=== PATIENT | female | born 2000 | race Caucasian/White ===

== ENCOUNTER 2024-10-12 13:10 | Outpatient (OUT) | payer OTHER, SELFPAY ==
[2024-10-12 13:55] LABS: Basophils Absolute Auto 0.1 10^3/uL (0.0-0.1); Eosinophils Absolute Auto 0.2 10^3/uL (0.0-0.7); Eosinophils Percent Auto 3.3 % (0.9-7.0); Hematocrit 42.8 % (36.0-48.0); Hemoglobin 14.1 g/dL (12.0-16.0); Immature Granulocytes Abs Auto 0.01 10^3/uL (0.00-0.03); Immature Granulocytes Pct Auto 0.2 % (0.0-0.5); Lymphocytes Absolute Auto 1.5 10^3/uL (1.2-3.8); Mean Corpuscular HGB Conc 32.9 g/dL (29.9-35.2); Mean Corpuscular Hemoglobin 29.1 pg (26.7-34.0); Mean Corpuscular Volume 88.2 fL (81.0-99.0); Monocytes Absolute Auto 0.3 10^3/uL (0.3-0.8); Monocytes Percent Auto 5.9 % (1.7-12.0); Neutrophils Absolute Auto 2.8 10^3/uL (1.4-6.5); Neutrophils Percent Auto 57.6 % (43.0-75.0); Platelet Count 248 10^3/uL (150-450); Red Blood Count 4.85 10^6/uL (4.20-5.40); Red Cell Distribution Width 12.3 % (11.0-15.0); White Blood Count 4.8 10^3/uL (4.0-11.0)
[2024-10-12 14:23] LABS: Estimated Average Glucose 91 mg/dL; Glycohemoglobin A1C 4.8 % (4.5-6.2)
[2024-10-12 14:47] LABS: Thyroid Stimulating Hormone 2.794 uIU/mL (0.358-3.740)
[2024-10-12 14:58] LABS: HCG Quantitative <1 mIU/mL
[2024-10-12 15:21] LABS: Free T4 0.89 ng/dL (0.76-1.46)
[2024-10-13 04:07] LABS: FSH 8.1 mIU/mL (.); Luteinizing Hormone(LH) 15.7 mIU/mL (.)
[2024-10-16 23:08] LABS: DHEA, Serum 428 ng/dL (31-701)
== END 2024-10-12 13:11 | disposition home or self-care (01) ==
LOC: LAB 13:13
PROVIDERS: PCP Family Medicine; Visit Provider Obstetrics & Gynecology
DX: E28.2 Polycystic ovarian syndrome (principal)
CPT/HCPCS: 36415; 82626; 82627; 83001; 83002; 83036; 84439; 84443; 84702; 85025

== ENCOUNTER 2024-11-15 11:04 | Outpatient (OUT) | payer OTHER, SELFPAY | END 2024-11-15 11:05 | disposition home or self-care (01) | LOC: PST 11:04 | PROVIDERS: PCP Family Medicine; Visit Provider Obstetrics & Gynecology | DX: Z01.818 Encounter for other preprocedural examination (principal); E28.2 Polycystic ovarian syndrome; R10.2 Pelvic and perineal pain ==

== ENCOUNTER 2024-11-16 15:55 | Outpatient (OUT) | payer OTHER, SELFPAY ==
--- NOTE | 2024-11-16 15:56 | US_ITS ---
The [address] [address] Patient Name: KATHY OLIVER MRN: [id number] date: 2000 Sex: F Assigned Patient Location: US Current Patient Location: US Accession/Order Number: [id number] Exam Date: 11/16/2024 19:41 Report Date: 11/16/2024 19:45 At the request of: HERMELINDO ROCHA DO Procedure: US pelvis w/ transvaginal Transabdominal and transvaginal pelvic ultrasound HISTORY: Polycystic ovarian syndrome. Irregular bleeding. Uterus is anteverted. There are no uterine mass identified. Uterus measures 7.6 x 2.6 x 3.8 cm. The endometrium has a total combined thickness of 4 mm. The right ovary measures 3.2 x 1.7 x 2.0 cm and has a resistive index of 0.53. Anechoic cyst adjacent to the right ovary measures up to 3.2 cm. Left ovary measures 2.8 x 1.1 x 1.9 cm and has a resistive index of 0.49. US/US pelvis w/ transvaginal IMPRESSION: 3.2 cm anechoic cyst adjacent to the right ovary which may be of ovarian origin. May consider follow-up assessment with pelvic ultrasound in 8 weeks. Color-flow both ovaries. Unremarkable uterus and endometrial complex. Impression dictated by: Miko Wise M.D.11/16/2024 7:45 PM [facility] [facility] Electron[facility] authenticated by: [id number] Y Date: 11/16/2024 19:45
== END 2024-11-16 15:56 | disposition home or self-care (01) ==
LOC: US 15:55
PROVIDERS: PCP Family Medicine; Visit Provider Obstetrics & Gynecology
DX: E28.2 Polycystic ovarian syndrome (principal)
CPT/HCPCS: 76830; 76856

== ENCOUNTER 2024-11-25 10:02 | Day surgery (SDC) | payer OTHER, SELFPAY ==
[2024-11-15 11:31] VITALS: BP 106/73; PULSE 66; TEMP 36.2; O2SAT 96; BMI 18.2
[2024-11-25] VITALS (10 sets, daily range): BP systolic 104–121; BP diastolic 64–81; PULSE 66–90; TEMP 36.5–36.6; O2SAT 97–100
--- OUTSIDE RECORDS SUMMARY | 2024-11-25 10:09 | XMS_ITS | CCD ---
Author Organization [facility] Care Team Providers Care Divorce Lawyer Name Role Phone MARCUS VILLANUEVA Primary Care Physician Niharika Valencia Unavailable AMRIT Vega Attending Provider [phone] Marily Vega Unavailable KAY, DR VAN Primary Care Unavailable VESTA, DR ROSALIO Mcbride Admitting Unavailnasir LEMONS, DR ROSALIO Mcbride Attending Unavailabl e SHIKHA ., NARGIS Consulting Unavailable SIMIN RICO Consulting Unavailable KAY, DR VAN Primary Care Unavailable HAY ., DR ANGEL Admitting Unavailable HAY ., DR ANGEL Attending Unavailable HAY ., DR ANGEL Consulting Unavailable HUSSEIN YOUSIF Consulting Unavailable KAY, DR VAN Primary Care Unavailable HAY ., DR ANGEL Admitting Unavailable HAY ., DR ANGEL Attending Unavailable SHIKHA .NARGIS Consulting Unavailable HEMMER, DR LEIDA Gunn Admitting Unavailable HEMMER, DR LEIDA Gunn Attending Unavailable KAY, DR VAN Primary Care Unavailable MATEUS PETIT Consulting Unavailable HEMMER, DR LEIDA Gnun Consulting Unavailable HEMMER, DR LEIDA Gunn Admitting Unavailable HEMMER, DR LEIDA Gunn Attending Unavailable KAY, DR VAN Primary Care Unavailable RUSSELL, BIBI Consulting Unavailable HEMMER, DR LEDIA Gunn Consulting Unavailable Cammy Allison Attending Unavailable Cammy Allison Admitting Unavailable Marcus Villanueva MD Primary Care Provider Marcus Villanueva MD Unavailable MARCUS VILLANUEVA Attending Unavailable HERMELINDO WYATT Attending Unavailable HERMELINDO WYATT Attending Unavailable MARCUS VILLANUEVA Attending Unavailable MAIKOL METZ Attending Unavailable ERMELINDA GALEANO Attending Unavailable Medications Current Medications Medication Drug Class(es) Dates Sig (Normalized) Sig (Original) ALPRAZolam 0.25 mg oral tablet (7 sources) Benzodiazepine Start: 12-08-2023 take 1 tablet by mouth every twelve hours for anxiety and anxiety ALPRAZolam (Xanax) 0.25 MG tablet Indications: Anxiety Take 1 tablet (0.25 mg) by mouth every 12 (twelve) hours for 60 doses 60 tablet 12/08/2023 Active azithromycin 500 mg oral tablet (1 source) Macrolide Antimicrobial Start: 09-07-2021 take 2 tablets by mouth once Zithromax 500 MG 2 tabs Orally once for 1 days Aug, Active baclofen 10 mg oral tablet (9 sources) gamma-Aminobutyric Acid-ergic Agonist Start: 09-13-2024 End: 10-13-2024 take 1 tablet by mouth at bedtime baclofen (Lioresal) 10 MG tablet Indications: Tension headache TAKE 1 TABLET BY MOUTH IN THE MORNING, EVENING, AND BEFORE BEDTIME 270 tablet 1 10/07/2024 Active Start: 12-30-2023 End: 09-13-2024 take 1 tablet by mouth at bedtime baclofen (Lioresal) 5 MG tablet Indications: Tension headache TAKE 1 TABLET BY MOUTH IN THE MORNING, EVENING AND BEFORE BEDTIME 270 tablet 12/30/2023 09/13/2024 Discontinued (Other) cetirizine hydrochloride 10 mg oral tablet (2 sources) Histamine-1 Receptor Antagonist Start: 05-22-2020 take 1 tablet by mouth once daily cetirizine 10 mg Tab 10 mg = 1 tab(s), Oral, Daily, # 30 tab(s), Refills(s) 0 Start Date: 05/22/20 Status: Ordered citalopram 10 mg oral tablet (2 sources) Serotonin Reuptake Inhibitor Start: 11-01-2024 End: 11-01-2025 take 1 tablet by mouth once daily citalopram (CeleXA) 10 MG tablet Indications: Mood disorder (CMS/HCC) Take 1 tablet (10 mg) by mouth Daily 30 tablet 11 11/01/2024 11/01/2025 Active desogestrel 0.15 mg / ethinyl estradiol 0.03 mg oral tablet (5 sources) Progestin, Estrogen Start: 10-11-2024 End: 10-11-2025 desogestrel-ethinyl estradiol (Apri) 0.15-30 MG-MCG tablet Indications: Abnormal uterine bleeding (AUB) Take 1 tablet by mouth Daily 28 tablet 12 10/11/2024 10/11/2025 Active Flonase 0.05 mg/inh nasal spray (1 source) Start: 05-22-2020 take 1 spray(s) nasal route twice daily Flonase 0.05 mg/inh nasal spray 1 spray(s), Nasal, BID, 16 gram, Refill(s) 0, each nostril Start Date: 05/22/20 Status: Ordered fluticasone propionate 0.05 mg/actuat metered dose nasal spray (1 source) Corticosteroid Start: 05-22-2020 take 1 spray(s) nasal route twice daily Flonase 0.05 mg/inh nasal spray 1 spray(s), Nasal, BID, 16 gram, Refill(s) 0, each nostril Start Date: 05/22/20 Status: Ordered Medroxyprogesterone 150 mg/mL syringe (2 sources) Start: 06-28-2024 Medroxyprogesterone 150 mg/mL syringe Active MG IM June 28, 2024 12:00am metroNIDAZOLE (5 sources) Nitroimidazole Antimicrobial Start: 06-28-2024 Metronidazole 0.75 % (37.5mg/5 gram) gel Active 1 APPLICATOR VAGINAL Daily 70 5 June 28, 2024 12:00am Start: 11-18-2022 take 1 tablet by georgi th every twelve hours metroNIDAZOLE 500 MG 1 tablet Orally Twice a day for 7 days Nov, Active Start: 09-07-2021 take 4 tablets by mouth once m etroNIDAZOLE 500 MG 4 tablets Orally once for 1 days Aug, Active metroNIDAZOLE 0. 75 % 1 application Vaginal qhs for 5 day(s) Active Completed/Discontinued Medications Medication Drug Class(es) Dates Sig (Normalized) Sig (Original) cefTRIAXone (2 sources) Cephalosporin Antibacterial Start: 09-07-19 Rocephin 500 mg Aug, 500 mg 1 ml medroxyPROGESTERone acetate 150 mg/ml prefilled syringe (2 sources) Progestin Start: 07-20-20 End: 09-13-19 medroxyPROGESTERone (Depo-Provera) 150 MG/ML suspension prefilled syringe injection syringe Indications: Encounter for contraceptive management, unspecified INJECT 1 ML INTRAMUSCULARLY EVERY 11-13 WEEKS 1 mL 4 07/20/2023 09/13/2024 Discontinued (Other) meloxicam 7.5 mg oral tablet (2 sources) Nonsteroidal Anti-inflammatory Drug Start: 09-13-19 End: 09-13-19 take 1 tablet by mouth once daily meloxicam (Mobic) 7.5 MG tablet Indications: Tension headache Take 1 tablet (7.5 mg) by mouth Daily 30 tablet 11 09/13/2024 09/13/2024 Discontinued (Side effects) Problems Active Problems Problem Classification Problem Date Documented Date Episodic/Chronic Abdominal pain (7 sources) Unspecified abdominal pain; Translations: [Pain in female pelvis] Onset: 11-22-2022 Episodic Adjustment disorders (7 sources) Adjustment disorder with depressed mood; Translations: [Adjustment disorder with depressed mood] Onset: 01-05-2018 03-02-2023 Chronic Anxiety disorders (15 sources) Anxiety disorder, unspecified; Translations: [Anxiety] Onset: 02-13-2020 03-02-2023 Chronic Conditions associated with dizziness or vertigo (4 sources) Dizziness and giddiness; Translations: [DIZZINESS AND GIDDINESS] Onset: 10-30-2022 Episodic Endometriosis (11 sources) Endometriosis (clinical); Translations: [Endometriosis, unspecified] Onset: 03-05-2021 09-13-2024 Chronic Gastritis and duodenitis (14 sources) Atrophic gastritis; Translations: [Chronic atrophic gastritis without bleeding] Onset: 01-05-2018 03-02-2023 Chronic Headache; including migraine (9 sources) Tension-type headache; Translations: [Tension-type headache, unspecified, not intractable] Onset: 05-11-2023 09-13-2024 Chronic Headache; including migraine (1 source) Headache; including migraine; Translations: [HEADACHE UNSPECIFIED] Onset: 11-08-2022 Impulse control disorders, NEC (7 sources) Trichotillomania; 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] Onset: 04-05-2021 03-02-2023 Chronic Miscellaneous mental health disorders (9 sources) Primary insomnia; Translations: [Primary insomnia] Onset: 09-13-2024 09-13-2024 Chronic Mood disorders (15 sources) Depressive disorder; Translations: [Depression] Onset: 12-19-2017 03-02-2023 Chronic Nutritional deficiencies (7 sources) Deficiency of macronutrients; Translations: [Unspecified protein-calorie malnutrition] Onset: 03-02-2023 03-02-2023 Chronic Other aftercare (1 source) Other jail (current) drug therapy; Translations: [OTH BLOCK HACKER CURRENT DRUG THERAPY] Onset: 11-24-2022 Episodic Other endocrine disorders (3 sources) Polycystic ovary syndrome; Translations: [Polycystic ovarian syndrome] 10-11-2024 Chronic Other female genital disorders (2 sources) Abnormal uterine bleeding; Translations: [Abnormal uterine and vaginal bleeding, unspecified] 10-11-2024 Chronic Other female genital disorders (2 sources) Pain in female genitalia on intercourse; Translations: [Unspecified dyspareunia] 10-11-2024 Chronic Other female genital disorders (2 sources) Other specified noninflammatory disorders of vagina Onset: 09-07-2021 Resolved: 09-07-2021 Episodic Other nervous system disorders (7 sources) Chronic pain; Translations: [Other chronic pain] Onset: 03-02-2023 03-02-2023 Chronic Other skin disorders (9 sources) Ingrowing great toenail; Translations: [Ingrowing nail] Onset: 09-13-2024 09-13-2024 Episodic Other upper respiratory disease (7 sources) Sore throat - chronic; Translations: [Chronic pharyngitis] Onset: 03-02-2023 03-02-2023 Chronic Unclassified (3 sources) LOW BACK PAIN, UNSPECIFIED; Translations: [LOW BACK PAIN, UNSPECIFIED] Onset: 06-17-2022 Past or Other Problems Problem Classification Problem Date Documented Da te Episodic/Chronic Contraceptive and procreative management (7 sources) Patient encounter status; Translations: [Encounter for contraceptive management, unspecified] Onset: 03-02-2023 03-02-2023 Episodic Diabetes mellitus without complication (7 sources) Impaired fasting glycemia; Translations: [Impaired fasting glucose] Onset: 03-02-2023 03-02-2023 Episodic Genitourinary symptoms and ill-defined conditions (9 sources) Dysuria; Translations: [Increased frequency of urination] Onset: 03-02-2023 Episodic Headache; including migraine (7 sources) Daily headache; Translations: [Daily headache] Onset: 03-02-2023 03-02-2023 Episodic Intracranial injury (8 sources) Personal history of traumatic brain injury; Translations: [History of concussion injury of brain] Onset: 11-08-2022 03-02-2023 Episodic Malaise and fatigue (13 sources) Other fatigue; Translations: [Fatigue] Onset: 01-07-2022 Episodic Mycoses (7 sources) Tinea capitis; Translations: [Tinea barbae and tinea capitis] Onset: 03-03-2023 03-03-2023 Episodic Nonspecific chest pain (1 source) Chest pain, unspecified; Translations: [CHEST PAIN UNSPECIFIED] Onset: 01-09-2022 Episodic Other connective tissue disease (7 sources) Muscle spasm of cervical muscle of neck; Translations: [Other muscle spasm] Onset: 03-02-2023 03-02-2023 Episodic Other gastrointestinal disorders (7 sources) Constipation; Translations: [Constipation, unspecified] Onset: 03-02-2023 03-02-2023 Episodic Other infections; including parasitic (7 sources) History of glandular fever; Translations: [Personal history of other infectious and parasitic diseases] Onset: 03-02-2023 03-02-2023 Episodic Other lower respiratory disease (1 source) Shortness of breath; Translations: [SHORTNESS OF BREATH] Onset: 01-09-2022 Episodic Other nutritional; endocrine; and metabolic disorders (7 sources) Underweight; Translations: [Underweight] Onset: 03-02-2023 03-02-2023 Episodic Other skin disorders (3 sources) Rash and other nonspecific skin eruption; Translations: [RASH OTH NONSPECIFIC SKIN ERUPTION] Onset: 12-31-2021 Episodic Other skin disorders (1 source) Follicular disorder, unspecified; Translations: [FOLLICULAR DISORDER UNSPECIFIED] Onset: 01-01-2022 Episodic Poisoning by other medications and drugs (7 sources) Acetaminophen overdose; Translations: [Poisoning by 4-Aminophenol derivatives, accidental (unintentional), initial encounter] Onset: 12-18-2017 03-02-2023 Episodic Residual codes; unclassified (1 source) High risk heterosexual behavior Onset: 09-07-2021 Resolved: 09-07-2021 Episodic Residual codes; unclassified (7 sources) Difficulty sleeping ; Translations: [Sleep disorder, unspecified] Onset: 03-02-2023 03-02-2023 Episodic Spondylosis; intervertebral disc disorders; other back problems (7 sources) Backache; Translations: [Dorsalgia, unspecified] Onset: 03-02-2023 03-02-2023 Episodic Suicide and intentional self-inflicted injury (7 sources) Intentional paracetamol overdose; Translations: [Poisoning by 4-Aminophenol derivatives, intentional self-harm, initial encounter] Onset: 12-18-2017 03-02-2023 Episodic Unclassified (1 source) LOW BACK PAIN, UNSPECIFIED; Translations: [LOW BACK PAIN, UNSPECIFIED] Onset: 06-16-2022 Results Test Name Value Interpretation Reference Range Facility US PELVIS W/ TRANSVAGINALon 11-16-2024 [place] [address] Ultrasound Report Signed Patient: MATI HOLT MR#: [id number] : 2000 Acct:[id number] Age/Sex: 24 / F ADM Date: 11/16/24 Loc: US Attending Dr: Hermelindo Wyatt D.O. Ordering Physician: Hermelindo Wyatt D.O. Date of Service: 11/16/24 Procedure(s): US pelvis w/ transvaginal Accession Number(s): [id number] cc: MARCUS VILLANUEVA ; Hermelindo Wyatt D.O. [address] [address] Patient Name: MATI HOLT MRN: [id number] date: 2000 Sex: F Assigned Patient Location: Current Patient Location: US Accession/Order Number: [id number] Exam Date: 11/16/2024 19:41 Report Date: 11/16/2024 19:45 At the request of: HERMELINDO WYATT DO Procedure: US pelvis w/ transvaginal Transabdominal and transvaginal pelvic ultrasound HISTORY: Polycystic ovarian syndrome. Irregular bleeding. Uterus is anteverted. There are no uterine mass identified. Uterus measures 7.6 x 2.6 x 3.8 cm. The endometrium has a total combined thickness of 4 mm. The right ovary measures 3.2 x 1.7 x 2.0 cm and has a resistive index of 0.53. Anechoic cyst adjacent to the right ovary measures up to 3.2 cm. Left ovary measures 2.8 x 1.1 x 1.9 cm and has a resistive index of 0.49. US/US pelvis w/ transvaginal IMPRESSION: 3.2 cm anechoic cyst adjacent to the right ovary which may be of ovarian origin. May consider follow-up assessment with pelvic ultrasound in 8 weeks. Color-flow both ovaries. Unremarkable uterus and endometrial complex. Impression dictated by: Miko Wise M.D.11/16/2024 7:45 PM Dictation Location: [place] [address] Electronically authenticated by: [id number] Date: 11/16/2024 19:45 Dictated By: Miko Wise D.O. Signed By: 11/16/241947 DD/ 44 TD/TT: Clinical Dermatologist: [facility] Radiology, Radiologist, MD - 11/16/2024 [place] [address] Ultrasound Report Signed Patient: MATI HOLT MR#: [id number] : 2000 Acct:[id number] Age/Sex: 24 / F ADM Date: 11/16/24 Loc: US Attending Dr: Hermelindo Wyatt D.O. Ordering Physician: Hermelindo Wyatt D.O. Date of Service: 11/16/24 Procedure(s): US pelvis w/ transvaginal Accession Number(s): [id number] cc: MARCUS VILLANUEVA ; Hermelindo Wyatt D.O. The [place] [id number] Patient Name: MATI HOLT MRN: [facility]:[id number] date: 2000 Sex: F Assigned Patient Location: US Current Patient Location: US Accession/Order Number: [id number] Exam Date: 11/16/2024 19:41 Report Date: 11/16/2024 19:45 At the request of: HERMELINDO WYATT DO Procedure: US pelvis w/ transvaginal Transabdominal and transvaginal pelvic ultrasound HISTORY: Polycystic ovarian syndrome. Irregular bleeding. Uterus is anteverted. There are no uterine mass identified. Uterus measures 7.6 x 2.6 x 3.8 cm. The endometrium has a total combined thickness of 4 mm. The right ovary measures 3.2 x 1.7 x 2.0 cm and has a resistive index of 0.53. Anechoic cyst adjacent to the right ovary measures up to 3.2 cm. Left ovary measures 2.8 x 1.1 x 1.9 cm and has a resistive index of 0.49. US/US pelvis w/ transvaginal IMPRESSION: 3.2 cm anechoic cyst adjacent to the right ovary which may be of ovarian origin. May consider follow-up assessment with pelvic ultrasound in 8 weeks. Color-flow both ovaries. Unremarkable uterus and endometrial complex. Impression dictated by: Miko Wise M.D.11/16/2024 7:45 PM Dictation Location: [place] [address] Electronically authenticated by: [id number] Y Date: 11/16/2024 19:45 Dictated By: Miko Wise D.O. Signed By: 11/16/241947 DD/ 44 TD/TT: Clinical Dermatologist: [facility] Radiology Study observation (narrative) [facility] US PELVIS W/ TRANSVAGINALOrd ered By: Radiologist Radiology on 11-16-2024 [facility] Work Phone: ALL CBC WITH AUTO DIFFon BASOPHILS ABSOLUTE AUTO 0.1 [facility] Basophils/100 WBC (Bld) 1 % 0.2 - 2.0 % [facility] Eosinophils/100 WBC (Bld) 3.3 % 0.9 - 7.0 % [facility] Erythrocyte distribution width (RBC) [Ratio] 12.3 % 11.0 - 15.0 % [facility] Hematocrit (Bld) [Volume fraction] 42.8 % 36.0 - 48.0 % [facility] Hemoglobin (Bld) [Mass/Vol] 14.1 g/dL 12.0 - 16.0 g/dL [facility] IMMATURE GRANULOCYTES ABS AUTO 0.01 [facility] Immature granulocytes/100 WBC (Bld) 0.2 % 0.0 - 0.5 % [facility] LYMPHOCYTES ABSOLUTE AUTO 1.5 [facility] Lymphocytes/100 WBC (Bld) 32 % 20.5 - 60.0 % [facility] MCH (RBC) [Entitic mass] 29.1 pg 26.7 - 34.0 pg [facility] MCHC (RBC) [Mass/Vol] 32.9 g/dL 29.9 - 35.2 g/dL [facility] MCV (RBC) [Entitic vol] 88.2 fL 81.0 - 99.0 fL [facility] MONOCYTES ABSOLUTE AUTO 0.3 [facility] Monocytes/100 WBC (Bld) 5.9 % 1.7 - 12.0 % [facility] NEUTROPHILS ABSOLUTE AUTO 2.8 [facility] Neutrophils/100 WBC (Bld) 57.6 % 43.0 - 75.0 % [facility] Platelet mean volume (Bld) [Entitic vol] 10 fL 9.5 - 13.5 fL [facility] TBH EO # 0.2 [facility]H PLT 248 [facility] TB RBC 4.85 [facility]H WBC 4.8 [facility] Urine Cultureon 06-28-2024 Bacteria identified Cx Nom (U) No Growth 2 Days PERFORMED BY: [place] [address] PATHOLOGIST ASSISTANT FINANCE MANAGER DEVIN HEREDIA M.D. Normal [facility] Comment on above: Performed By: #### V AGINITIS+ #### [facility] , #### CUU #### [address] Vaginitis Plus (VG+)on 06-28 Atopobium Vaginae High - 2 Critically abnormal . [facility] Comment on above: Result Comment: This test was developed and its performance characteristics determined by [facility]. It has not been cleared or approved by the Food and Drug Administration. Performed By: #### V AGINITIS+ #### [facility] , #### CUU #### [facility] [address] [place] [address] BVAB2 Low - 0 Normal . [facility] Comment on above: Result Comment: This test was developed and its performance characteristics determined by [facility]. It has not been cleared or approved by the Food and Drug Administration. Performed By: #### V AGINITIS+ #### [facility] , #### CUU #### [place] [address] [place] Demetra Albicans, CYNDEE Negative Normal Negative [facility] Comment on above: Result Comment: This test was developed and its performance characteristics determined by [facility]. It has not been cleared or approved by the Food and Drug Administration. Performed By: #### V AGINITIS+ #### [facility] , #### CUU #### [place] [address] [place] Demetra Glabrata, CYNDEE Negative Normal Negative [facility] Comment on above: Result Comment: This test was developed and its performance characteristics determined by [facility]. It has not been cleared or approved by the Food and Drug Administration. PERFORMED BY: [place] [address] PATHOLOGIST ASSISTANT FINANCE MANAGER DEVIN HEREDIA M.D. Performed By: #### V AGINITIS+ #### [facility] , #### CUU #### [place] [address] [place] Chlamydia Trachomotis, CYNDEE Negative Normal Negative [facility] Comment on above: Performed By: #### V AGINITIS+ #### [facility] , #### CUU #### [place] [address] [place] Megasphaera Low - 0 Normal . [facility] Comment on above: Result Comment: This test was developed and its performance characteristics determined by [facility]. It has not been cleared or approved by the Food and Drug Administration. Calculate total score by adding the 3 individual bacterial vaginosis (BV) marker scores together. Total score is interpreted as follows: Total score 0-1: Indicates the absence of BV. Total score 2: Indeterminate for BV. Additional clinical data should be evaluated to establish a diagnosis. Total score 3-6: Indicates the presence of BV. Performed By: #### V AGINITIS+ #### [facility] , #### CUU #### [facility] [address] Neisseria Gonorrhoeae, CYNDEE Negative Normal Negative [facility] Comment on above: Result Comment: Perf ormed at: =G - [facility] [address] [id number] Licensed Midwife: Lilia Sheets MD, Phone: [phone] Performed By: #### V AGINITIS+ #### [facility] , #### CUU #### [address] Tric Vag CYNDEE Negative Normal Negative [facility] Comment on above: Performed By: #### V AGINITIS+ #### [facility] , #### CUU #### [address] ABD/PELVIS WO CONon 11-22 CT ABD/PELVIS WO CON CT ABD/PELVIS WO CON: 11/21/2022 10:57 PM EDT CLINICAL HISTORY: 22 years old Female with Right flank pain. TECHNIQUE: Axial CT images through the abdomen and pelvis are obtained without the intravenous administration of contrast. Coronal and sagittal reformations are also obtained. Dose reduction techniques were achieved by using automated exposure control and/or adjustment of mA and/or kV according to patient size and/or use of iterative reconstruction technique. COMPARISON: CT abdomen pelvis 09/15/2020 and pelvic ultrasound versus 04/2021. FINDINGS: The lung bases are clear with no dependent infiltrate or effusion. Without the use of IV or oral contrast the study is limited by incomplete evaluation of the blood vessels, solid visceral organs and bowel. The liver, gallbladder, spleen, pancreas and bilateral adrenal glands are unremarkable. The bilateral kidneys are unremarkable with no renal calculi or hydronephrosis. The bilateral ureters demonstrate no gross abnormality or obstruction. The stomach and small bowel are unremarkable. The appendix is partially visualized without inflammatory changes present. The colon is unremarkable. The bladder appears unremarkable. There is no evidence of aortic aneurysm. No enlarged lymph nodes are seen. No free air or free fluid is seen. Right ovarian cyst measures 2.1 x 2.2 x 2.1 cm. Uterus and left adnexa are unremarkable. The osseous structures appear unremarkable. IMPRESSION: 1. No acute intraabdominal process identified. 2. No renal or ureteral calculi bilaterally without hydronephrosis. 3. Right ovarian cyst measures 2.2 cm. Electronically authenticated by: HUSSEIN YOUSIF Date: 2022-11-22 01:01 Normal [facility] Urinalysis - AUTOMATEDon Appearance (U) clear [employer] Other Bilirubin Ql (U) Negative [employer] Other Color (U) light yellow [facility] Other Glucose Ql (U) Negative [employer] Other Hemoglobin Ql (U) Negative [employer] Other Ketones Ql (U) Negative [employer] Other Leukocyte esterase Test strip Ql (U) trace [facility] Other Nitrite Ql (U) Negative [employer] Other pH (U) 7.0 [pH] [facility] Other Protein Ql (U) Negative [employer] Other Specific gravity (U) [Rel density] 1.015 [facility] Other Urobilinogen (U) [Mass/Vol] 0.2 mg/dL [facility] Other Urinalysis - AUTOMATED No [facility] Other CT HEAD WO CONon 10-30-2022 CT HEAD WO CON EXAMINATION: CT HEAD WO CON HISTORY: History of traumatic brain injury COMPARISON: None. TECHNIQUE: CT examination of the head without IV contrast. Dose reduction techniques were achieved by using automated exposure control and/or adjustment of mA and/or kV according to patient size and/or use of iterative reconstruction technique. FINDINGS: No acute intracranial hemorrhage. No acute loss of mena/white differentiation. The ventricles and sulci are normal in appearance. The osseous structures are unremarkable. No soft tissue abnormality identified. The paranasal sinuses and mastoid air cells are clear. IMPRESSION: 1. No acute intracranial abnormality. Electronically authenticated by: BIBI WELLS Date: 2022-10-30 10:16 Normal [facility] ER URINE PROFILEon 2 Bilirubin Ql (U) Negative Normal NEGATIVE The [facility] Comment on above: Performed By: #### P REGU ERUR UMICRO ####[facility] [address] [place] [address]Dr. Geetha Díaz Clarity (U) CLEAR Normal CLEAR The [facility] Comment on above: Performed By: #### P REGU ERUR, UMICRO ####[facility] [address] [place] [address]Dr. Geetha Díaz Color (U) LT. YELLOW Normal YELLOW The [facility] Comment on above: Performed By: #### P REGU ERUR, UMICRO ####[facility] Cx[address]wmtmk[address] [place] [address]Dr. Geetha ASHRAFD A micrscopic examination will be performed if indicated. Normal The [facility] Comment on above: Performed By: #### P REGU, ERUR, UMICRO ####[facility] [address] [place] [address]Dr. Geetha Díaz Glucose Ql (U) Negative Normal NEGATIVE The [facility] Comment on above: Performed By: #### P REGU, ERUR, UMICRO ####[facility] R[address]ayjha[address] [place] [address]Dr. Geetha Díaz Hemoglobin Ql (U) Negative Normal NEGATIVE The [facility] Comment on above: Performed By: #### P REGU, ERUR, UMICRO ####[facility] R[address]om[address] [place] [address]Dr. Geetha Díaz Ketones Ql (U) Negative Normal NEGATIVE The [facility] Comment on above: Performed By: #### P REGU, ERUR, UMICRO ####[facility] [address] [place] [address]Dr. Geetha Díaz LEUKOCYTES TRACE Abnormal NEGATIVE The [facility] Comment on above: Performed By: #### P REGU, ERUR, UMICRO ####[facility] Itbvmqgebn[address] [place] [address]Dr. Geetha Díaz Nitrite Ql (U) Negative Normal NEGATIVE The [facility] Comment on above: Performed By: #### P REGU, ERUR, UMICRO ####[facility] G[address]xsfs[address] [place] [address]Dr. Geetha Díaz pH (U) 6.5 [pH] Normal 5-9 [facility] Comment on above: Performed By: #### P REGU, ERUR, UMICRO ####[facility] [address] [place], [place] [address]Dr. Geetha Díaz SPEC GRAVITY 1.015 Normal 1.005-<=1.02 5 [facility] Comment on above: Performed By: #### P REGU, ERUR, UMICRO ####[facility] Agtdnbyl[address] [place], [place] [address]Dr. Geetha Díaz UA PROTEIN Negative Normal NEGATIVE/ TRACE The [facility] Comment on above: Performed By: #### P REGU, ERUR, UMICRO ####[facility] [address] [place], [place] [address]Dr. Geetha Díaz UR MICRO IND INDICATED Normal The [facility] Comment on above: Performed By: #### P REGU, ERUR, UMICRO ####[facility] Yyevbayyek[address] [place], [place] [address]Dr. Geetha Díaz Urobilinogen Qn (U) 0.2 {Prerna'U}/dL Normal 0.2 - 1. 0 [facility] Comment on above: Performed By: #### P REGU, ERUR, UMICRO ####[facility] V[address]qxqfays[address] [place], [place] [address]Dr. Geetha Díaz URon 06-16-2022 , QUAL Negative Normal NEGATIVE The [facility] Comment on above: Performed By: #### P CHELSEA BRAR UMICRO #### [facility] [address] [address] [address] Geetha Díaz URINE MICROSCOPIC ONLYon BACTERIA TRACE Abnormal NONE SEEN The [facility] Comment on above: Performed By: #### P REGTIERRA GerardoR UMICRO ####[facility] [address] [place] [address]Dr. Geetha Díaz Bacteria identified Cx Nom (U) NOT INDICATED Normal The [facility] Comment on above: Performed By: #### P REGTIERRA GerardoR UMICRO ####[facility] [address] [place] [address]Dr. Geetha Díaz CAST NONE SEEN Normal NONE SEEN The [facility] Comment on above: Performed By: #### CHELSEA CORONADO UMICRO ####[facility] Pbrmvwmtbo[address] [place] [address]Dr. Geetha Díaz Crystals LM Nom (Urine sed) NONE SEEN Normal NONE SEEN The [facility] Comment on above: Performed By: #### P TIERRA BRARR UMICRO ####[facility] [address] [place] [address]Dr. Geetha Díaz Epithelial cells LM Ql (Urine sed) FEW Abnormal NONE SEEN /RARE The [facility] Comment on above: Performed By: #### P REGAkin ERUR UMICRO ####[facility] [address] [place] [address]Dr. Geetha Díaz MUCOUS NONE SEEN Normal NONE SEEN The [facility] Comment on above: Performed By: #### P REGU ERUR, UMICRO ####[facility] [address] [place] [address]Dr. Geetha Díaz RBC 2-5 Abnormal 0-2 [facility] Comment on above: Performed By: #### P REGU ERUR UMICRO ####[facility] [address] [place] [address]Dr. Geetha Díaz WBC 2-5 Abnormal NONE SEEN The [facility] Comment on above: Performed By: #### P CHELSEA BRAR UMICRO ####[facility] [address] [place], [place] [address]Ss. Geetha Díaz XR RIBS RT PA Bhavana 2 XR RIBS RT PA CH EXAMINATION: XR RIBS RT PA CH REASON FOR EXAM: Pain. COMPARISON: 01/07/2022. TECHNIQUE: 4 views. FINDINGS: Lungs are clear. Cardiomediastinal shadows are normal. No pneumothorax or effusion. No right-sided rib fracture. IMPRESSION: Negative x-rays of the chest and right ribs. Electronically authenticated by: SIMIN RICO Date: 2022-06-16 18:42 Normal The [facility] Coding Summary.on 02-10-2022 Coding Summary. CD:[id number] Gh0bWw+PGhlYWQ+PE1FV BTbA71wvHLdpA6HH1uCL D7JVPUPWGRNMF2GPV0yg RV5PHyxL0AgppOs XudmvHMlUS42RSp2UXJ3 pJwnFRiatM2vvKCoH3z3 RbKsMF44tS30XKylVKVl VgM1YzAgjikgvRVk T2toBxOftRDnZep+PHRh YmxlIHdpZHRoPScxMDAl XuDafOwqZD8pRx9vDNCz LWNvbGxhcHNlOiBj w6klEMUyMQpvEA2jqFxe R6QkjAK0YXCbd6r2Oh19 dHI+TZLtTLH3aQpbSMha v252PpOxc7kfZEJ0 xAXkRXfjSZC9M58xx5T7 FYDsTJSaXAS7hHI1rS8m rUhgsmkeN4IyqYPcPrF3 AOD1pLBxuJ0jyRmr faszbB8oTny+B61BXG8J GTTKFS6YUqg0P2RrWzwt dHI+SK48MREgQC35vIMa vTClr4qvnVf2YpTp OUYnGKI4tNvyCQfzl6Iq UIXiM79xjIZvx2Q5SEEt eFxioXRcSeEsvQW1yH6l RSlagtvzx8qixmvx Hbshb5xzks74fZ91B02o DQthESAxLRM8AIHrIYIt gBghcg4jbX0lDt6+IDxj f7jmr9ejbHc4KvNo PJDagoDpeUjgVUN2l5Qa Lq57N9HpvYzjq0JuIdl3 xq31mHGmh1A8dNY5HCoc GHDxlT8mIChzBnV3 XCBzJjHbxP81lJYpODtd Lp8zxSieoQylUJ3cXGBo ospjPSKvqG3cSDZqpATs dDoiSG5iMCApriwv u687UxAsNQH8LJDqnMTn L9FymY3lRhExEDXqQQLu E5EkcTDaVRplQ381UYtw LoO3YDDvirLgF4Cl FNQxcJadSgM2b4Z4Br9Z b0OqchkgVVV0TXweFHV5 CeD7DoUcVgK9H2ChVrj2 EFNebIbbGF4yP2Zw ANPajplrbwgabYZ6GTZy LEHhxP23nQDeIHrwMq5x l8W9a608TIRrMDTgzS60 Lt3kkCkjRBUuhKOD nW2ukbbea5oxdxhjFjZg FAWtDUt2ICk0GLUoaLly NjGdVKQ9FlH3WEP9gDFc vT7wtUtagbjzmB5t Oyc+L42kdZ0rHSH0OOO8 wzhmKSDsqoRoZO60ZQ38 O3DwSubihGQopVZ+PGRp cuNgzOppKB7nHoVr o0avo3CvFRxwN7EzUZPc JRmqOgj4UVFiRYF1iQU6 aD8hXMJqIKnhj0D0bXN7 Y6NzfgVmre0ke4tj LXXuMWeqG29ysFUoq3X6 CLStsYH7IYNltOjfHbZn xR65Hsd+FYCmxRdlw5Hl Iddrc7vke9knqZn8 IjMwJSIgdmFsaWduPSJ0 y9IlDk21C36wOQcmOHUc CDWzLCGlFIBybVsejm4t eB4nEz7+PGNvbCB3 oMV5tF1sYIImOfZ6TCnw H739DcVehFWwQqqri6jw a6tefWl0VzPfZHXwmwPm kItzUAG2h3YiKd82 I91yQOhqVWElMOOkLAPx JLCraEgzbr3yoW7jTr2+ RN6am8icly45bR02pZH+ KWRoGFW6aKlrBBrq CKArdD2oAYdoJdG4PRAx LyZaiL55kDYcJLcuQl6n hSahxRpsZV2zLYSomiml l856LzZxq5lkJTWg iBJyQAvwLGA0W83wc5N0 MPAkWWSxHPQ9iXC9qB1i bGlnbjogbGVmdDsgdmVy fJxbREivKPqgI367 IHRvcDsnPlBhdGllbnQg OrDbCDc6P4OsZvj9ZIZr qXeuUT9bgRYgEZcbDg6w gDtizZufTA9aGEVe jeqkt260YeTuc5sbLLNw tKHiQJfpZIK6E74nf4Z0 IYEaYVRhCIN4qIC3cJ6z bGlnbjogbGVmdDsg qaKwqCtbUYbySOwmX358 IHRvcDsnPkJpcnRoIERh dMA0ZK64QJ49rUEft7A1 vBR9B4BdLPGytbbf mvxpyQI4GAEvRNZjoJ91 Rf7lgIgxQq0cZBMnXCB5 WJEbfTDsY0FfqD9jJgKr IFJuDIYlK4UazNLl EXkvK102FPeyQuN1UIQs ojWzD3ZcEDBmjCzmVjJ5 z5Y4Ld3GG4P8SD31SY11 uWWji5S6uZH9T2Ns KPZedgtqctserLQ9YAXp XEIsyW00Vn5vyJosQd3h HHFcKDL4VGJdgMGsE8On oI6zVgShAQYmJEWb U1WkkJDyZSbcQ959AFfj JuJ9KQPhbjNhC5HkQZPj rMjrXiH2w5G4Tv2BQKd0 ZA63OA42tUZqq2Z1 iSZ0I3RfLAXotpepdzya jNX9GXZvIASijO82Bw9t bVylUr4rZKUjLZF6JWKq tZYaF0ZfmM1aUrIa LMSkOMTzG0BhgVEyINrb A943XZanQwS1QBSdokMm J2AqCENvyLajErS5a4C1 Ec9YBHXhPY83QRJ3 yXF7JD70HI83R5ElSmgh dGFibGU+PHRhYmxlIHdp ZHRoPScxMDAlJyBzdHls LS6eNm6eRGJoGUWr qCkxuQWvGlZpt6omQULs NXqyAW0oaZdlI8IrzLG5 DJOmv3r8La78F17uQ6Qm dXA+TXPuhKT1jDU7 uN9fJjTaWoI8FAniP259 SiNphOPuAhwej8ygi9sq jEi4PiF4FVVfyhAeeGil BKF8i1GjFh84E25o IHdpZHRoPSIxNSUiIHZh kXqyyr6guP8zQe0+PGNv jPU6lZE0uR0kUkPxNrV3 FIngA439TcVwxINw Kuogf6dsb5btyLx1RfYp SAVeauGriNunEPK0m7Lt Bh26F3GfkYdei4JwHlr4 og56yQBqp1K2zRD7 M5IyEVCsjendvLNltCgu CS9aKKZphbwdUTMcqR5j EHLzB7v6TgPvOeV0VRwq Z4BrutX2EIZdlVJa TRxdFGN8V17ps7E5BLRe OFWiVNY9cCE8jK2rgYff bjogbGVmdDsgdmVydGlj ZKcrWTykA018EGOf kPviXKEroP2iTYUyeJDx vMkbMG8oQHGxjvztJtPS S0FJKogqYWfSCBoQYQ15 E7PhUbr6ADDhlOzj RM4tpOEnZWbiEp3foFlf zRftUQ1mGPMwjuojYVPl jP6bVQBplUGimZfrRR7g KNEnlbshg627QnJf LGE2HRPnkDOjO6XfaE4t OoBoVXAtPVDqC9DoxCBd DWzvM973EDrkLkC3KQSi inHnY3HkWOScnHcs BcV6t2L0Cs5sRM8zFW0i OGJeMC66QS93jQEzt2W9 cNQ3J9XaGBTizmdlnebl wMF2OMOnUYHmrP33 oEQuAZvmMl4kb2L2t611 VZDrIPRvxF84Th3pkDjz JYFlhKJMfS0fjlaxj6fy cjogIzAwMDAwMDt0 MBe9BYAmgJxxFcQlWUW2 HaS9OIU2zZBvlE5awGhw zcssgO1fAou+MjAgWWVh zzX4Q0JcNst5AGPj jPofRC4fxVLrCUngJm4j wAjfyKulCU2lGTGfcbxk JKXsoD3nUUPaeARctZma DZ5lOMUsogphm286 DzHfNDV3QAIgcMHdW5Je gS6qDhGqTUUvCHVpV3Oq hYUeCWxnG863QBqiFgH9 MTBovoXvJ5SjYKNl pFesGbG3v7S3Zl1LRD0u kYW6S2XaUiq9CRLjnUfe OR2esFTgKErlCv5spJly cQimNL9cSWJfnmtq AIEjhF1sJMIorSHpjXns UT6sBONhsrryk941EdBe RKY7BVFtxLZeQ4TwxI6c ErXlSUMzEVFrA6Md bVVsFIqvK707FYzaIrO8 LHAlvcApB7HlSDAjcUlp RgL3d0O0Sj1HyVTbMACj TA01OB64MD09Y1Vt PjwvdGFibGU+PHRhYmxl IHdpZHRoPScxMDAlJyBz zEcrFT2hVe8nPLMrXJLm dUkhmKXgCpUak7iv ADXmEBahSO9vvBntT0Yo qNP4UEYqi7b6Qd37Q81h K2QrfDE+LZUadVP5iSC6 eB4eBnTsRxZ6GEiu H675MqGyeQKyUoyhj7lp s0ndmVf5YgBrYJYcpnCk cHrzETL6x3RpSg00K28z IHdpZHRoPSIyMCUi WVXjqQfczh2isX2wYv7+ YTKnzGX9yIX6sC5aPxJi IrD9ZWssA242OhKasCEl IzfcN11lX6XbqWL+ HUJgNfy0YCPfwZdzUN3x pBRlSPloHi2jWVB7DwWe GfKdYOliS2QaELObyaar epydxVB5TJByASLg aT54Dt4cuClnCi3zHTJd ONK2RXWkgXMxK2BoiE4f WzPfRLAeOJWcY4UvrPWd ZJdeS297VXlbDzE7 ZGTmivNjG0AzKKWmtGwi FyC0o4U6Uk3VaLwihVHr BT4fKuDjOCz7W5FxDaq6 OEGkjEokKO0ejWTo LAaaSt3kcRtgmBvzGP9n UKSfvzuiz158ThCip6wz GHGeiIClOGizFHS6X98p o6T0QMWdNSPqTCO6 lTE0cM1qnLmtkkefdMKc dDsgdmVydGljYWwtYWxp N221YZUzlUijCuPDQvs3 R7FzNgg7MESptCfs UV9dzLBuVWejSn5uxPkk bUavCR3xBQWaonvwh865 QxXkv4wjURFdrCUjPTur KVI0V07bx6O0QGGc WFPwYQO6kXV5kB4drEtz bjogbGVmdDsgdmVydGlj IRbfRPwhE465UQQopZdy Yg9CFex2Y5LmOqq6 CDZzlKggXE7mmSXbFUpz Gk0woWaslTtdZA5nKDQo sraeg294OxGes2bnBQMe lEKyLYsoIHR9Y99v n7C5KYGmHXGzBOL7nLH0 yD7apJrhiiioeIBliLvf vwQawWrbRSusRBpoW878 IHRvcDsnPlBheWVy OjwvdGQ+UP95sr97Y7Fj LucjXbi5ANEoXTT8pSF9 aH7bCVQlCBhkc9Y2aZR1 I3UnlfVtkz2xi0ow YXBz (more content not included)... [facility] Physician Orderon 02-10-2022 Physician Order [id number] #1.00CD:127 [facility] Consent for Treatmenton 01-16 Consent for Treatment [id number] #1.00CD:127 [facility] Physician Orderon 02-04-2022 Physician Order [id number] #1.00CD:127 [facility] Coding Summary.on 01-15-2022 Coding Summary. CD:[id number]:[id number] Gh0bWw+PGhlYWQ+PE1FV OWwC86bxJXnoY5JV6eRF G5WIATHQDGBZW0VOT4qi RL8OEhkY3NkwgOi GlaoxORnWX67AFr1SXH0 wHseQMluuQ8oiURdA4x2 JcGaGQ88fJ71AJfdKLIv SvL1XmQaaixnmCGe P3nmEzXyiGKiPng+PHRh YmxlIHdpZHRoPScxMDAl OnMcqXfkJV3fVk2rPFGr LWNvbGxhcHNlOiBj m3lzEDNqDIstGF8ehSig S7JzqAA4LUDcm4u3Kc92 dHI+URTkLHS8qRgpBBop k078BrWdz9rlQLS3 wOPfDHhtOTC6E33im7Y6 DYDxUGLaZVR7kFO9wZ9w oKcdgiyrZ6BatCIpWaB6 KAG3mTZnqS9pjXim uloyrK3hVtl+N33QQX5W HQONJP1ESnu4P0NuEujx dHI+AR27QPCkOF15rVSh gDRhp7ukwZv0KbJu EMCaBUW1oTidRRuul9Ie VSFlU05ylFBpd8O7YKWk jQksqRUeQkQrrNA0sH2p GUshibwoz8orhruc Ohdry2dzot11vY79V22m QZbxDVSqVKF6IMYjSOSm wRewyr1amY1zYg8+IDxj i1fne4yxjCe6AtQt OTTswjQgfNcaXDA9v6Uz Eq60C8IpoTxyu4JlCqc2 ak85yLCmg0J0jQN9KEwi RCKlvC6rWTgtAjY0 RQFwZsBqaG40mTHxNWyk Ev2kmPpqvIptSQ3pTXWo hpcwHUUkcK1hOTGhuLWe wIkbTA1eNKGemajl g975MpGpNBW4KTEpdORl S9OddD9xVwVrZEMeNUOx H4DirKLhJYlsI851GJgd PyV8MYIqaiJzQ3Hz HUAykMddOoY0z3I2Th7H w3DouvnjDNO7VUqdQRK9 IySyNvCzOnL1K1QvTcr9 MFPblKnpFL8vI6Ui JRZqrgfppdhmlQN0SEUp GLBdpS30xJRwIXagDn8x k5Z4b106HQJqBRUczX78 Gn0qrYotIKRtsEAV sS2jxveok0romegkBdAu SZHuSJw0IBp6HLOrzXmw DpNfFQV9EkP1LAM6mSPh zZ3hxJydyeiimM7p Oyc+A63qnK6jDOM4OMV8 jjzdLDJjrxNtNQ81BN63 Z8VwGroleGBriAR+PGRp maWcgYeeHG8vTmZx k4tdd0ShCBpoT8DzPMPs YMysLbf4WUMsYHZ1iWJ8 iI3vLDKxJWrha8Z7tCT8 D6FhktDjhb1rv6uf FQFwPAwsY06wcKKig7D7 MPDrrXI7OXGeqQvjOuKw bW04Ggr+OCPulHswz5Iw Tjwxx8pwy0gkfEm2 IjMwJSIgdmFsaWduPSJ0 u9AnVx93S41mXPnyJEOi BTNaVTXhBXUenEzpyb1n iV1gRu4+PGNvbCB3 sZI3sL7rGPCtMfD5OYbc C159DwDzcWWzQzbmk6se j1mfjJy7ZxVzSJKvlkXn xWfsDKN2p3YzDa24 R56uYXrhKSFtBGQlGLSh QJDneKuvep3rsX7cXu5+ GX1gw6pfur30sM65bCC+ WWXyVQG7mFghOMic ZBNnxQ1vVVvtIlC8POGe EbMtfK74rELkDJjiJd1u cQzetQgdKX8sJVYikvwx t589IiWur2cyRUWq hSOgLLwhJBO2T24yf7I0 MKZhJJGkTOO0yXS9oG7p bGlnbjogbGVmdDsgdmVy eLvjLBmrDYnzY076 IHRvcDsnPlBhdGllbnQg NmIyUSp6R0YqRge0CACg fOlqSN5nbMLkRDfxPj1t qFzabPfcOJ7sRWOk beogk357GaTjt9ltXGHa iNAsEAcbCPC7A52jg9W7 OCAxPSZwVZC6eMD3sB0z bGlnbjogbGVmdDsg puJfpCreVAfoMUpgU089 IHRvcDsnPkJpcnRoIERh uYO1IA67JN48eIWlj0W7 uVJ9M5XdEYQzxnkn hzcjpCK2EIRsKLXdpN87 Jj8xlPgdAa9qBCZjULA7 VVBxzUHuH8UygH3aLqWz OEZqSOHaS3PtdLNu PFvhQ478WVzfWgI5FGXc kyMvY6HuBQXymDqcWqW7 q7F5Dd2IR1X5BV54LC76 nCWmz0U4aEF1Z1Xe RPHemkdqvssvlCA2HVVq FECnlB80It7nbFpqOx3p ITRbHME9QZQugFTjH1Vz xD2tOfTaQNInZQWe C7PjfPMvGNkzV417UVur PtR9XNWpgdLnG5EpNBZg yVbpBlY0s0F0Hg7SONk3 TN57NA12eJHgo2A7 uAD4D2LlXRYbssakhvxz yRH4DNBoRAQugX40Lj5n jMgmEb0eVCIcXHW7UQNc bGZgZ1KaeK2gQcJk WEEmYFUqV9NflLEjLThb M993PXmwMfL1GCKdryKk G7RnNYCbeHxuItU8t4K6 Wr1JAGLqEV91FTD9 kZV5BD14ZD73T5UvOqcy dGFibGU+PHRhYmxlIHdp ZHRoPScxMDAlJyBzdHls TQ7bDq8wSHHiDJKr yWsxnJBpVzSen5vsWSNf DKbbSF6ctDddS5PyyDF0 FEIwx1x1Gh11O21wQ0Fy dXA+AOAhuED1zXR3 fN0xRhVxTnW5RFxfF275 FyTjbNRoThjsa8qhh0mw iUz7OjG8CEUhrcTacZzu BRH1a2TfQs59T00x IHdpZHRoPSIxNSUiIHZh kRjrlc6kjK7dAr8+PGNv xSW4fWJ1nQ5aUrIjAnG1 BTsaU580LgFuuEVd Owlex7gqr3jgtVj4FuGg DIKfqcDfaBhfRTI3t7Pd Ro80W3GhiPudq5VbXgg6 dv44tKBux9Y5oDX8 E6LwYFNwkxabqQVktAki BG0hUIJskyxoMNPjlR6x BFRbL0m9OxMmUyP7XEvn P5IxbeJ2VIEywMSv QUvgASH5H96wh2Z4XTKf IQAaTPQ5tIP9qU9ktFjl bjogbGVmdDsgdmVydGlj AIzaKZayX883BABu lDzhDBWklN7iRBWbkZSh uUdzXS6jMYYwlxvvNcIO D9LYCmzdCRwINQzQDI52 D0JiExo8ANZjxCxs GM5hdYXuBHciIv4pvToc nQkgLR7sXNGhasvaOIHn dH4bVQBojQChpWytZX0d HVXzrzdkw491RvDr YAD2MKAopXAvA7BbaC6j MnXjRGEuQUUqW7IpjVTf SFsjG383PXudRfN7VPGe kySmB0GfLJClfXqu AaA2l5Z4Ow6eWS8pYC9e LCPuVO26EU10zBDyx0B9 xCB3R1HtQDOfupmikihi aAX1ALDzFASooF85 kLWeDIwlRq6bp8A1k694 YNDuVVOnqL96Ny3bzMxa HSBsoIDCtW8yntogo6ea cjogIzAwMDAwMDt0 EZx7OWYmzHfzLeCfVMH6 OfG9OOJ3xOEckU0acCbp sbevhL3cZwe+MjAgWWVh sjS9H7OoWhk4HUPb lJqpLA4dxHLvTSdkUs3o rUrveNqmOQ5oAELmuiyy RFQasZ5wSNWefGAvbByh LB3eRNUazrkez824 OlUqZYZ2TCQzuHWcM2Wl yC3lPgGuVMCjGRKnY6Fe kVUxXNbtR591ONqtBfQ9 RORxhkTkY1XgUSRx qZnkRqL3c2M8Se9CGD1u qLD3V2FgYec6ZPNrjXld LD6vpJNoFKimCq9vyIwi qMrzGW4kPLWwcngs WVClxX3mHMDknFCsxEvz ID6bHOHlnwxza866LdSv KQO9BPZcdDCbU0EqkP0t JqZkEHCjYVXtO9Ul xUHiRQsgH518PSgfSyC5 RJVarzTpV8OhJVFzsWok FlU7z2B6Zh1DKWVeGDVq iWKxQvX2F9JuFmzm dHI+AZ97TVPqUP46hSDi tTNcq5bvuGn8WsMsFMZf CUQ7fYjhCUhtv4QaLYNy Y77aoRFjr8V5DUHv eVxskHRbJlDvgCH6vS3n NWesxbtbb0mfqshoMvuw x9yywo79qH73S61hCCpj ZHRoPSIzMCUiIHZh eVbgoa5vtU9kPn1+PGNv fRQ0bFC8sL1uClZuMpX3 ZLojN486ViFlyOWnStxx g5qxw0ghdXw0OsSy NZAobzIpaYeySRD0u6Rg Ql34U85sWMmtEPGeRLPr PGBvOIDwaJnssr0uiH2k Ii8+EI4xx1firz82 lE46bTY+RZWrLZO2vZos LXgyOMAdjI2eZMxeHwF3 EANiGaPrbM58uVMhYWij Tb7vfDjwzYpyPO8i ROAkxvktm896TwAju3ko PBVflBEpFRbrGHN0S83i l9I3RMRpQRKfRQU8bDQ1 bF7xgLbflbxotHKq dDsgdmVydGljYWwtYWxp O840KVYreHxcDnZxiERd Y8xxquEDAE0aPahjxMK+ TSIwGCE9zGbpXAcc HCHirU9bFNFrB3t1JrUx OxM8STjeW6AfsnU6NDUy pBHhTNClcQJIwW3qulge v2ovrctwNcZzMOXe CLd0NGo0GFCvjLfzPmPk JPX4RbP3XPJ1zWCvsG8q pFxmdfaufG6tKwj+RklO OjwvdGQ+PHRkIHN0 xVuvWMneJVIfpN2xRPOa D3v6CyPuWvS1TUizQ1Lg viP4XMBxwKSyXYOtgBYO qT0nbxnvr3pfzvky MuCpZEKyXMd3IGw9MNLl lWzoLhAaKLI9MpH5ANI7 uTLlaH9wfLfsbxvysJ7y Oyc+TVJOOjwvdGQ+ KJSaRJC7rPesSWytSJFr gA1bZYPcL9l5GiLlRwV6 IBlcT5TrbcT0XDUkiNEz DBZtiMOQtB4xzqhg c6ytbpbvKqUhCHCgSCy2 JGh5BITlsPysJkKpSVE1 BvA9LUK4mDLtsJ4drVhn fvmqdS1zTjr+UGF5 IAT0VO79DF71T5JgYnfc dGFibGU+PHRhYmxlIHdp ZHRoPScxMDAlJyBzdHls RA0kBy4sXYZiJUEd bGxh (more content not included)... Normal [facility] NuSwab Vaginitis Plus (VG+)o n 01-09-2022 A. vaginae DNA CYNDEE+probe Ql (Vag fld) Low - 0 Invalid Interpretation Code [facility] Comment on above: Performed By: #### 1 [id number] #### [facility] [address] [place] [address] Bacterial vaginosis associated bacterium 2 DNA CYNDEE+probe Ql (Vag fld) Low - 0 Invalid Interpretation Code [facility] Comment on above: Performed By: #### 1 [id number] #### [facility] [address] [place] [address] C. albicans DNA CYNDEE+probe Ql (Vag fld) Negative Invalid Interpretation Code Negative [facility] Comment on above: Result Comment: This test was developed and its performance characteristics determined by [facility]. It has not been cleared or approved by the Food and Drug Administration. Performed By: #### 1 [id number] #### [facility] [address] [place] [address] C. glabrata DNA CYNDEE+probe Ql (Vag fld) Negative Invalid Interpretation Code Negative [facility] Comment on above: Result Comment: This test was developed and its performance characteristics determined by [facility]. It has not been cleared or approved by the Food and Drug Administration. Performed By: #### 1 [id number] #### [facility] [address] [place] [address] C. trachomatis DNA CYNDEE+probe Ql (Vag fld) Positive Abnormal Negative [facility] Comment on above: Performed By: #### 1 [id number] #### [facility] [address] [place] [address] Megasphaera sp type 1 DNA CYNDEE+probe Ql (Vag fld) Low - 0 Invalid Interpretation Code [facility] Comment on above: Result Comment: Calc ulate total score by adding the 3 individual bacterial vaginosis (BV) marker scores together. Total score is interpreted as follows: Total score 0-1: Indicates the absence of BV. Total score 2: Indeterminate for BV. Additional clinical data should be evaluated to establish a diagnosis. Total score 3-6: Indicates the presence of BV. This test was developed and its performance characteristics determined by [facility]. It has not been cleared or approved by the Food and Drug Administration. Performed By: #### 1 [id number] #### [facility] [address] [place] [address] N. gonorrhoeae DNA CYNDEE+probe Ql (Vag fld) Negative Invalid Interpretation Code Negative [facility] Comment on above: Result Comment: Perf ormed at: =G [facility] [address] [place] [id number] MD Kortney Rodrigues Performed By: #### 1 [id number] #### [facility] [address] [place] [address] T. vaginalis DNA CYNDEE+probe Ql (Vag fld) Negative Invalid Interpretation Code Negative [facility] Comment on above: Performed By: #### 1 [id number] #### [facility] [address] [place] [address] CBC AUTO DIFFon 01-07-2022 BASO # 0.1 103/ul Normal 0.0-0.1 [facility] Comment on above: Performed By: #### C BC #### [facility] [address] [place] [address] Dr. Geetha Díaz Basophils/100 WBC (Bld) 1.3 % Normal 0.2-2.0 [facility] Comment on above: Performed By: #### C BC #### [facility] [address] [place] [address] Dr. Geetha Díaz EO # 0.1 103/ul Normal 0.0-0.7 [facility] Comment on above: Performed By: #### C BC #### [facility] [address] [place] [address] Dr. Geetha Díaz Eosinophils/100 WBC (Bld) 2.9 % Normal 0.9-7.0 [facility] Comment on above: Performed By: #### C BC #### [facility] [address] [place] [address] Dr. Geetha Díaz Erythrocyte distribution width (RBC) [Ratio] 12.2 % Normal 11.0-15.0 [facility] Comment on above: Performed By: #### C BC #### [facility] [address] [place] [address] Dr. Geetha Díaz Hematocrit (Bld) [Volume fraction] 39.2 % Normal 36.0-48.0 [facility] Comment on above: Performed By: #### C BC #### [facility] [address] [place] [address] Dr. Geetha Díaz Hemoglobin (Bld) [Mass/Vol] 12.8 g/dL Normal 12.0-16.0 [facility] Comment on above: Performed By: #### C BC #### [facility] [address] [place] [address] Dr. Geetha Díaz IG # 0.01 10e3/ul Normal 0.00-0.03 [facility] Comment on above: Performed By: #### C BC #### [facility] [address] [place] [address] Dr. Geetha Díaz IG % 0.2 % Normal 0.0-0.5 [facility] Comment on above: Performed By: #### C BC #### [facility] [address] [place] [address] Dr. Geetha Díaz LYMPH # 1.4 103/ul Normal 1.2-3.8 [facility] Comment on above: Performed By: #### C BC #### [facility] [address] [place] [address] Dr. Geetha Díaz Lymphocytes/100 WBC (Bld) 29.8 % Normal 20.5-60.0 [facility] Comment on above: Performed By: #### C BC #### [facility] [address] [place] [address] Dr. Geetha Díaz MANUAL DIFF REQ NO Normal [facility] Comment on above: Performed By: #### C BC #### [facility] [address] [place] [address] Dr. Geetha Díaz MCH (RBC) [Entitic mass] 29.1 pg Normal 26.7-34.0 [facility] Comment on above: Performed By: #### C BC #### [facility] [address] [place] [address] Dr. Geetha Díaz MCHC (RBC) [Mass/Vol] 32.7 g/dL Normal 29.9-35.2 [facility] Comment on above: Performed By: #### C BC #### [facility] [address] [place] [address] Dr. Geetha Díaz MCV (RBC) [Entitic vol] 89.1 fL Normal 81.0-99.0 [facility] Comment on above: Performed By: #### C BC #### [facility] [address] [place] [address] Dr. Geetha Díaz MONO # 0.4 103/ul Normal 0.3-0.8 [facility] Comment on above: Performed By: #### C BC #### [facility] [address] [place] [address] Dr. Geetha Díaz Monocytes/100 WBC (Bld) 7.7 % Normal 1.7-12.0 [facility] Comment on above: Performed By: #### C BC #### [facility] [address] [place] [address] Dr. Geetha Díaz NEUT # 2.6 103/ul Normal 1.4-6.5 [facility] Comment on above: Performed By: #### C BC #### [facility] [address] [place] [address] Dr. Geetha Díaz Neutrophils/100 WBC (Bld) 58.1 % Normal 43.0-75.0 [facility] Comment on above: Performed By: #### C BC #### [facility] [address] [place] [address] Dr. Geetha Díaz Platelet mean volume (Bld) [Entitic vol] 9.1 fL Critically low 9.5-13.5 [facility] Comment on above: Performed By: #### C BC #### [facility] [address] [place] [address] Dr. Geetha Díaz PLT 278 103/ul Normal 150-450 [facility] Comment on above: Performed By: #### C BC #### [facility] [address] [place] [address] Dr. Geetha Díaz RBC 4.40 106/ul Normal 4.20-5.40 [facility] Comment on above: Performed By: #### C BC #### [facility] [address] [place] [address] Dr. Geetha Díaz WBC 4.5 103/ul Normal 4.0-11.0 [facility] Comment on above: Performed By: #### C BC #### [facility] [address] [place] [address] Dr. Geetha Díaz IRON AND TIBCon 01-07-2022 % SATURATION 27.2 % Normal [facility] Comment on above: Performed By: #### F ETIBC, VITB12, VITAD #### [facility] [address] [place] [address] Dr. Geetha Díaz Iron [Mass/Vol] 86.0 ug/dL Normal 50.0-170.0 [facility] Comment on above: Performed By: #### F ETIBC, VITB12, VITAD #### [facility] [address] [place] [address] Dr. Geetha Díaz TIBC DIRECT 316.0 ug/dL Normal 250.0-450.0 [facility] Comment on above: Performed By: #### F ETIBC, VITB12, VITAD #### [facility] [address] [place] [address] Dr. Geetha Díaz PROF 14(COMP METB)on 022 Albumin [Mass/Vol] 4.1 g/dL Normal 3.4-5.0 [facility] Comment on above: Performed By: #### C MP #### [facility] [address] [place] [address] Dr. Geetha Díaz Albumin/Globulin [Mass ratio] 1.1 {ratio} Normal [facility] Comment on above: Performed By: #### C MP #### [facility] [address] [place] [address] Dr. Geetha Díaz ALP [Catalytic activity/Vol] 53 U/L Normal 46-116 [facility] Comment on above: Performed By: #### C MP #### [facility] [address] [address] [address] Geetha Díaz ALT [Catalytic activity/Vol] 15 U/L Normal 14-59 [facility] Comment on above: Performed By: #### C MP #### [facility] [address] [place] [address] Dr. Geetha Díaz Anion gap [Moles/Vol] 13.2 mmol/L Normal [facility] Comment on above: Performed By: #### C MP #### [facility] [address] [place] [address] Dr. Geetha Díaz AST [Catalytic activity/Vol] 15 U/L Normal 15-37 [facility] Comment on above: Performed By: #### C MP #### [facility] [address] [place] [address] Dr. Geetha Díaz Bilirubin [Mass/Vol] 0.5 mg/dL Normal 0.2-1.0 [facility] Comment on above: Performed By: #### C MP #### [facility] [address] [place] [address] Dr. Geetha Díaz Calcium [Mass/Vol] 9.2 mg/dL Normal 8.5-10.1 [facility] Comment on above: Performed By: #### C MP #### [facility] [address] [place] [address] Dr. Geetha Díaz Chloride [Moles/Vol] 103 mmol/L Normal 98-107 [facility] Comment on above: Performed By: #### C MP #### [facility] [address] [place] [address] Dr. Geetha Díaz CO2 [Moles/Vol] 27.9 mmol/L Normal 21.0-32.0 [facility] Comment on above: Performed By: #### C MP #### [facility] [address] [place] [address] Dr. Geetha Díaz Creatinine [Mass/Vol] 0.78 mg/dL Normal 0.55-1.02 [facility] Comment on above: Performed By: #### C MP #### [facility] [address] [address] [address] Geetha Díaz EGFR-AF COLOMBIAN >60 Normal >=60 [facility] Comment on above: Performed By: #### C MP #### [facility] [address] [address] [address] Geetha Díaz EGFR-NON AF COLOMBIAN >60 Normal >=60 [facility] Comment on above: Performed By: #### C MP #### [facility] [address] [address] [address] Geetha Díaz Globulin (S) [Mass/Vol] 3.6 g/dL Normal [facility] Comment on above: Performed By: #### C MP #### [facility] [address] [place] [address] Dr. Geetha Díaz Glucose [Mass/Vol] 103 mg/dL Normal 74-106 [facility] Comment on above: Performed By: #### C MP #### [facility] [address] [address] [address] Geetha Díaz Potassium [Moles/Vol] 4.1 mmol/L Normal 3.5-5.1 [facility] Comment on above: Performed By: #### C MP #### [facility] [address] [place] [address] Dr. Geetha Díaz Protein [Mass/Vol] 7.7 g/dL Normal 6.4-8.2 [facility] Comment on above: Performed By: #### C MP #### [facility] [address] [address] [address] Geetha Díaz Sodium [Moles/Vol] 140 mmol/L Normal 136-145 [facility] Comment on above: Performed By: #### C MP #### [facility] [address] [address] [address] Geetha Díaz Urea nitrogen [Mass/Vol] 14.0 mg/dL Normal 7.0-18.0 [facility] Comment on above: Performed By: #### C MP #### [facility] [address] [address] [address] Geetha Díaz Urea nitrogen/Creatinine [Mass ratio] 17.9 mg/mg Normal [facility] Comment on above: Performed By: #### C MP #### [facility] [address] [place] [address] Dr. Geetha Díaz VITAMIN B12on 01-07-2022 Cobalamin (Vitamin B12) [Mass/Vol] 613.0 pg/mL Normal 193.0-986.0 [facility] Comment on above: Performed By: #### F ETIBC, VITB12, VITAD #### [facility] [address] [place] [address] Dr. Geetha Díaz VITAMIN D 25 OHon 01-07-2022 VIT D 25-OH 16.3 ng/mL Normal [facility] Comment on above: Performed By: #### F ETIBC, VITB12, VITAD #### [facility] [address] [place] [address] Dr. Geetha Díaz VIT D RANGES SEE BELOW Normal [facility] Comment on above: Result Comment: <20 ng/mL Vit D deficient 20 - <30 ng/mL Vit D insufficient 30 - 100 ng/mL Vit D sufficient >100 ng/mL Potential Toxicity Performed By: #### F ETIBC, VITB12, VITAD #### [facility] [address] [place] [address] Dr. Geetha Díaz XR CHEST 2 Von 01-07-2022 XR CHEST 2 V EXAM: XR CHEST 2 V EXAM: XR CHEST 2 V INDICATION: 21 years old Female Chest pain COMPARISON: None. FINDINGS: The cardiac silhouette is normal. There is no pulmonary edema. The lungs are clear. There is no pneumonia. There is no pneumothorax. There is no abnormal foreign body. IMPRESSION: There is no acute abnormality. Electronically authenticated by: MATEUS PETIT Date: 2022-01-07 17:49 Normal [facility] Physician Orderon 01-06-2022 Physician Order [id number] [id number] Normal [facility] Test, Urineon 08-18 Beta HCG ( test) Ql (U) Negative [facility] Other Urinalysis - AUTOMATEDon Appearance (U) clear [employer] Other Bilirubin Ql (U) Negative [employer] Other Color (U) dark yellow [facility] Other Glucose Ql (U) Negative [employer] Other Hemoglobin Ql (U) Negative [employer] Other Ketones Ql (U) 15 [employer] Other Leukocyte esterase Test strip Ql (U) Negative [facility] Other Nitrite Ql (U) Negative [employer] Other pH (U) 7.0 [pH] [facility] Other Protein Ql (U) Negative [employer] Other Specific gravity (U) [Rel density] >1.030 [facility] Other Urobilinogen (U) [Mass/Vol] 0.2 mg/dL [facility] Other Urinalysis - AUTOMATED No rt [place] Other Vital Signs Date Time Vital Sign Value Performing Clinician Facility 11-01-2024 11:40-0400 Body mass index (BMI) [Ratio] 18.95 kg/m2 [employer] Phone: [facility] 11-01-2024 11:40-0400 Body weight 42.55 kg [employer] Phone: [facility] 11-01-2024 11:40-0400 Diastolic blood pressure 68 mm[Hg] [employer] Phone: [facility] 11-01-2024 11:40-0400 Systolic blood pressure 104 mm[Hg] Hermelindo Yoselin DO Work Phone: [facility] 10-11-2024 08:50-0500 Body mass index (BMI) [Ratio] 19.35 kg/m2 Hermelindo Yoselin DO Work Phone: [facility] 10-11-2024 08:50-0500 Body weight 43.45 kg Hermelindo Yoselin DO Work Phone: [facility] 10-11-2024 08:50-0500 Diastolic blood pressure 72 mm[Hg] Hermelindo Yoselin DO Work Phone: [facility] 10-11-2024 08:50-0500 Systolic blood pressure 110 mm[Hg] Hermelindo Yoselin DO Work Phone: [facility] 09-13-2024 13:04-0500 Body height 149.9 cm Marcus Villanueva MD Work Phone: [facility] 09-13-2024 13:04-0500 Body mass index (BMI) [Ratio] 19.19 kg/m2 Marcus Villanueva MD Work Phone: [facility] 09-13-2024 13:04-0500 Body weight 43.09 kg Marcus Villanueva MD Work Phone: [facility] 09-13-2024 13:04-0500 Diastolic blood pressure 72 mm[Hg] Marcus Villanueva MD Work Phone: [facility] 09-13-2024 13:04-0500 Heart rate 68 /min Marcus Villanueva MD Work Phone: [facility] 09-13-2024 13:04-0500 SaO2% (BldA) [Mass fraction] 98 % Marcus Villanueva MD Work Phone: [facility] 09-13-2024 13:04-0500 Systolic blood pressure 102 mm[Hg] Marcus Villanueva MD Work Phone: [facility] 06-28-2024 13:50-0500 Body height 149.86 cm [facility] 06-28-2024 13:50-0500 Body mass index (BMI) [Ratio] 19.4 kg/m2 [facility] 06-28-2024 13:50-0500 Body temperature 96.4 [degF] [facility] 06-28-2024 13:50-0500 Body weight 43.65 kg [facility] 06-28-2024 13:50-0500 Diastolic blood pressure 74 mm[Hg] [facility] 06-28-2024 13:50-0500 Heart rate 74 /min [facility] 06-28-2024 13:50-0500 Respiratory rate 18 /min [facility] 06-28-2024 13:50-0500 SaO2% (BldA) [Mass fraction] 98 % [facility] 06-28-2024 13:50-0500 Systolic blood pressure 118 mm[Hg] [facility] 11-18-2022 15:10-0400 Body height 149.86 cm Marily Vega Other [facility] [employer] Other 11-18-2022 15:10-0400 Body mass index (BMI) [Ratio] 16.36 kg/m2 Marily Vega Other [facility] Other 11-18-2022 15:10-0400 Body temperature 98.2 [degF] Marily Vega Other [facility] Other 11-18-2022 15:10-0400 Body weight 36.74 kg Marily Vega Other [facility] Other 11-18-2022 15:10-0400 Respiratory rate 18 /min Marily Vega Other [facility] Other 11-18-2022 15:10-0400 SaO2% (BldA) [Mass fraction] 99 % Marily Vega Other [facility] Other 02-07-2022 15:00-0400 Body temperature 96.98 [degF] [facility] 02-07-2022 15:00-0400 Diastolic blood pressure 78 mm[Hg] [facility] 02-07-2022 15:00-0400 Heart rate 89 /min [facility] 02-07-2022 15:00-0400 Systolic blood pressure 110 mm[Hg] [facility] 02-07-2022 12:19-0400 Blood Pressure Location [facility] 02-07-2022 12:19-0400 Body temperature 97.88 [degF] [facility] 02-07-2022 12:19-0400 Diastolic blood pressure 71 mm[Hg] [facility] 02-07-2022 12:19-0400 Heart rate 92 /min [facility] 02-07-2022 12:19-0400 Mean blood pressure 82 mm[Hg] [facility] 02-07-2022 12:19-0400 Respiratory rate 16 /min [facility] 02-07-2022 12:19-0400 SaO2% (BldA) [Mass fraction] 99 % [facility] 02-07-2022 12:19-0400 Systolic blood pressure 104 mm[Hg] [facility] 09-07-2021 14:35-0500 Body height 149.86 cm Niharika Valencia Other [facility] Other 09-07-2021 14:35-0500 Body mass index (BMI) [Ratio] 16.36 kg/m2 Niharika Valencia Other [facility] Other 09-07-2021 14:35-0500 Body temperature Niharika Valencia Other [facility] Other 09-07-2021 14:35-0500 Body weight 36.74 kg Niharika Valencia Other [facility] Other 09-07-2021 14:35-0500 Diastolic blood pressure 61 mm[Hg] Niharika Valencia Other [facility] Other 09-07-2021 14:35-0500 Respiratory rate 18 /min Niharika Valencia Other [facility] Other 09-07-2021 14:35-0500 SaO2% (BldA) [Mass fraction] 98 % Niharika Valencia Other [facility] Other 09-07-2021 14:35-0500 Systolic blood pressure 99 mm[Hg] Niharika Valencia Other [facility] Other Encounters Encounter Date Encounter Type Care Provider Facility Start: 11-16-2024 End: 11-16-2024 Clinisync Result Encounter Generic External Data Provider [facility] External [facility] Unsolicited Start: 11-16-2024 End: 11-16-2024 Clinisync Result Encounter Generic External Data Provider [facility] External [facility] Unsolicited Start: 11-01-2024 End: 11-01-2024 Office outpatient visit 15 minutes Hermelindo Yoselin DO Work Phone: [facility] Comment on above: Pre-op examination; PCOS (polycystic ovarian syndrome); Pelvic pain in female; Mood disorder (CMS/HCC) Start: 11-01-2024 End: 11-01-2024 Preprocedural examination done Hermelidno Yoselin DO Work Phone: [facility] Start: 11-01-2024 End: 11-01-2024 ambulatory HERMELINDO YOSELIN Not Available Start: 10-12-2024 End: 10-12-2024 Clinisync Result Encounter Generic External Data Provider [facility] External Department Unsolicited Start: 10-12-2024 End: 10-12-2024 Clinisync Result Encounter Generic External Data Provider [facility] External Department Unsolicited Start: 10-11-2024 End: 10-11-2024 Office outpatient visit 15 minutes Hermelindo Yoselin DO Work Phone: [facility] Comment on above: PCOS (polycystic ova dick syndrome); Abnormal uterine bleeding (AUB); Pelvic pain in female; Dyspareunia in female Start: 10-11-2024 End: 10-11-2024 ambulatory HERMELINDO YOSELIN Not Available Start: 09-13-2024 End: 09-13-2024 Office outpatient visit 25 minutes Marcus Villanueva MD Work Phone: [facility] Comment on above: Tension headache (Pr imary Dx); Endometriosis; Other fatigue; Ingrowing nail, left great toe; Primary insomnia Start: 09-13-2024 End: 09-13-2024 ambulatory MARCUS VILLANUEVA Not Available Start: 06-28-2024 End: 06-28-2024 Patient encounter procedure [facility] [place] Work Phone: Start: 06-28-2024 End: 06-28-2024 ambulatory Cammy Allison [facility] Work Phone: Start: 03-23-2024 End: 03-23-2024 ambulatory ERMELINDA GALEANO Not Available Start: 01-04-2024 End: 01-04-2024 ambulatory MAIKOL METZ Not Available Start: 12-08-2023 End: 12-08-2023 ambulatory MARCUS VILLANUEVA Not Available Start: 11-22-2022 End: 11-22-2022 ambulatory Marily Vega Other [facility] Other Start: 11-22-2022 Telephone encounter Marily Vega [facility] [address] Start: 11-22-2022 End: 11-22-[address] MARCUS VILLANUEVA Facility:[facility] Start: 11-18-2022 End: 11-18-2022 Departed 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 Vega Work Phone: [facility] [place] Work Phone: Start: 11-18-2022 End: 11-18-2022 ambulatory 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 Vega Work Phone: [facility] Work Phone: Start: 11-18-2022 Office outpatient vi sit 15 minutes Marily Vega [facility] Start: 10-30-2022 End: 10-31-[address] LEIDA ARNDT Facility:[facility] Start: 06-16-2022 End: 06-16-[address] MARCUS VILLANUEVA Facility:[facility] Start: 02-07-2022 End: 02-07-2022 Patient encounter procedure [facility] Start: 01-07-2022 End: 01-08-[address] LEIDA ARNDT Facility:[facility] Start: 01-06-2022 End: 01-06-2022 Lab Drop off [facility] Start: 12-31-2021 End: 12-31-[address] MARCUS VILLANUEVA Facility:[facility] Start: 09-07-2021 End: 09-07-2021 ambulatory Niharika Valencia Other [facility] [employer] Other Start: 09-07-2021 Office outpatient vi sit 15 minutes Niharika Valencia [facility] [place] Procedures Date Procedure Procedure Detail Performing Clinician Start: 11-16-2024 US PELVIS W/ TRANSVAGINAL Generic External Data Provider Start: 10-12-2024 ALL CBC WITH AUTO DIFF Hermelindo Wyatt DO Work Phone: Plan of Treatment Date Care Activity Detail Author Start: 04-17-2025 Influenza vaccination Influenz a Vaccine (Season Ended) [facility] Start: 12-26-2024 End: 12-26-2024 Patient encounter procedure 12/26/2024 2:20 PM EDT Office Visit [facility] [address] [place] [id number] Hermelindo Wyatt, DO [address] [place] [address] [facility] Start: 11-16-2024 End: 11-16-2024 Professional / ancillary services management 11/16/2024 9:00 AM EDT Ancillary Procedure [facility] [address] [place] [phone] [facility] Start: 11-01-2024 End: 11-01-2024 Patient encounter procedure 11/01/2024 11:40 AM EDT Consult [facility] [address] [place] [phone] Hermelindo Wyatt, DO [address] [place] [address] [facility] Start: 10-11-2024 End: 10-11-2025 DHEA DHEA Lab Routine PCOS (polycystic ovarian syndrome) Expected: 10/11/2024 (Approximate), Expires: 10/11/2025 [facility] Comment on above: Expected: 10/11/2024 (Approximate), Expires: 10/11/2025 Start: 10-11-2024 End: 10-11-2025 US Pelvis US Pelvis w/ TV Imaging Routine PCOS (polycystic ovarian syndrome) Expected: 10/11/2024, Expires: 10/11/2025 [facility] Comment on above: Expected: 10/11/2024 , Expires: 10/11/2025 Start: 10-11-2024 End: 10-11-2024 Patient encounter procedure 10/11/2024 8:50 AM EST Office Visit [facility] [address] [place] [phone] Hermelindo Wyatt, DO [address] [place] [address] [facility] Start: 09-13-2024 End: 09-13-2025 CBC panel - Blood by Automated count CBC Lab Routine Other fatigue Expected: 09/13/2024 (Approximate), Expires: 09/13/2025 [facility] Work Phone: Comment on above: Expected: 09/13/2024 (Approximate), Expires: 09/13/2025 Start: 06-28-2024 [facility] Start: 06-28-2024 Urine culture [facility] Start: 04-17-2024 Influenza vaccination Influenza Vacc ine (#1) [facility] Start: 11-18-2022 [facility] Atopobium vaginae DN A [Presence] in Vaginal fluid by CYNDEE with probe detection [facility] Bacterial vaginosis associated bacterium 2 DNA [Presence] in Vaginal fluid by CYNDEE with probe detection [facility] CBC W Auto Different ial panel - Blood CBC and differential Lab Routine PCOS (polycystic ovarian syndrome) Ordered: 10/11/2024 [facility] Comment on above: Ordered: 10/11/2024 DHEA-sulfate DHEA-sulfate Lab Routine PCOS (polycystic ovarian syndrome) Ordered: 10/11/2024 [facility] Comment on above: Ordered: 10/11/2024 Follicle stimulating hormone Follicle stimulating hormone Lab Routine PCOS (polycystic ovarian syndrome) Ordered: 10/11/2024 [facility] Comment on above: Ordered: 10/11/2024 hCG, quantitative, hCG, quantitative, Lab Routine PCOS (polycystic ovarian syndrome) Ordered: 10/11/2024 [facility] Work Phone: Comment on above: Ordered: 10/11/2024 Hemoglobin A1c/Hemoglobin.total in Blood Hemoglobin A1c Lab Routine Abnormal uterine bleeding (AUB) Ordered: 10/11/2024 [facility] Comment on above: Ordered: 10/11/2024 Luteinizing hormone Luteinizing hormone Lab Routine PCOS (polycystic ovarian syndrome) Ordered: 10/11/2024 [facility] Comment on above: Ordered: 10/11/2024 Megasphaera sp type 1 DNA [Presence] in Vaginal fluid by CYNDEE with probe detection [facility] Thyrotropin [Units/volume] in Serum or Plasma TSH Lab Routine PCOS (polycystic ovarian syndrome) Ordered: 10/11/2024 [facility] Comment on above: Ordered: 10/11/2024 Thyroxine (T4) free [Mass/volume] in Serum or Plasma T4, free Lab Routine PCOS (polycystic ovarian syndrome) Ordered: 10/11/2024 [facility] Comment on above: Ordered: 10/11/2024 Immunizations Immunization Date Immunization Notes Care Provider [facility] 04-21-2019 meningococcal B vacc ine, recombinant, OMV, adjuvanted Marcus Villanueva MD Work Phone: [facility] 04-20-2014 tetanus toxoid, redu edward diphtheria toxoid, and acellular pertussis vaccine, adsorbed Marcus Villanueva MD Work Phone: [facility] 02-21-2005 diphtheria, tetanus toxoids and acellular pertussis vaccine, unspecified formulation Marcus Villanueva MD Work Phone: [facility] 02-21-2005 hepatitis B vaccine, pediatric or pediatric/adolescent dosage Marcus Villanueva MD Work Phone: [facility] 02-21-2005 pneumococcal conjuga te vaccine, 7 valent Marcus Villanueva MD Work Phone: [facility] 12-14-2002 diphtheria, tetanus toxoids and acellular pertussis vaccine, unspecified formulation Marcus Villanueva MD Work Phone: [facility] 12-14-2002 measles, mumps and rubella virus vaccine Marcus Villanueva MD Work Phone: [facility] 12-14-2002 pneumococcal conjuga te vaccine, 7 valent Marcus Villanueva MD Work Phone: [facility] 12-14-2002 poliovirus vaccine, inactivated Marcus Villanueva MD Work Phone: [facility] 11-03-2002 diphtheria, tetanus toxoids and acellular pertussis vaccine, unspecified formulation Marcus Villanueva MD Work Phone: [facility] 11-03-2002 haemophilus influenz ae type b conjugate and Hepatitis B vaccine Marcus Villanueva MD Work Phone: [facility] 11-03-2002 poliovirus vaccine, inactivated Marcus Villanueva MD Work Phone: [facility] 2001 diphtheria, tetanus toxoids and acellular pertussis vaccine, unspecified formulation Marcus Villanueva MD Work Phone: [facility] 2001 haemophilus influenz ae type b conjugate and Hepatitis B vaccine Marcus Villanueva MD Work Phone: [facility] 2001 pneumococcal conjuga te vaccine, 7 valent Marcus Villanueva MD Work Phone: [facility] 2001 poliovirus vaccine, inactivated Marcus Villanueva MD Work Phone: [facility] Payers Date Payer Category Payer Self-pay [id number] 2022 Private Health Insurance [facility] MEDICA[facility] [id number] 2001 Unknown [id number] 593 2001 Unknown [id number]. 593 2001 Unknown [id number]. 593 2001 Unknown [id number] [id number]. 593 2001 Unknown [id number] [id number]. 593 2001 Unknown [id number] [id number]. 1259 2001 Unknown [id number] [id number]. 1259 2001 Unknown [id number] [id number]. 9 2001 Unknown [id number] [id number]. 9 2001 Unknown [id number] [id number]. 1259 2001 Unknown [id number] [id number]. 1259 1958 Medicaid [id number] 1959 Unknown [id number] Unknown [id number]. 531 Social History Date Type Detail Facility Start: 05-22-2020 End: 02-04-2023 Tobacco smoking status Never smoked tobacco (finding) [facility] Other Comment on above: denies Start: 03-02-2023 End: 12-08-2023 Sex Assigned At Female [email or web address] Other Start: 2001 Sex Assigned At Female [facility] Tobacco smoking stat [facility] Unknown if ever smoked [facility] Work Phone: Start: 06-28-2024 End: 06-29-2024 Sex Female (finding) [facility] Start: 02-04-2023 Tobacco use and exposure Smokeless tobacco non-user [facility] Start: 12-08-2023 End: 11-01-2024 Alcoholic beverage intake Lifetime non-drinker (finding) [facility] Start: 03-02-2023 End: 12-08-2023 History of Social function [facility] Start: 02-04-2023 Alcohol Comment caffeine 1-2 cups/da y [facility] Start: 2001 Sex assigned at Not on file N [facility] Healthcare Clinical Notes 09-07-2021 to 11-01-2024 Karoline Dumontjuan manuel - 11/01/2024 11:40 AM Deanna Keene LPN - 10/11/2024 8:50 AM Amaris Villanueva MD - 09/13/2024 1:27 PM Amaris Villanueva MD - 09/13/2024 1:24 PM EST Note Date & Type Note Facility 11-01-2024 History of Presen t illness Narrative Reason for Appointment: Patient ID: Mati Holt is a 24 y.o. female who presents for Pre-op Visit Patient presents today for Pre Op appointment. Patient is scheduled to undergo Diagnostic Laparoscopy, possible ELEANOR, possible FOE, possible BSO on 11/25/[address] Wyatt at [facility]. MEDICATIONS Current Outpatient Medications Medication Instructions ALPRAZolam (XANAX) 0.25 mg, Oral, Every 12 hours baclofen (Lioresal) 10 MG tablet TAKE 1 TABLET BY MOUTH IN THE MORNING, EVENING, AND BEFORE BEDTIME desogestrel-ethinyl estradiol (Apri) 0.15-30 MG-MCG tablet 1 tablet, Oral, Daily ALLERGIES No Known Allergies PROBLEMS Active Ambulatory Problems Diagnosis Date Noted Adjustment disorder with depressed mood (CMS/HCC) 01/05/2018 Anxiety 02/13/2020 Other fatigue 03/02/2023 Atrophic gastritis 01/05/2018 Chronic gastritis without bleeding 03/02/2023 Constipation 03/02/2023 Daily headache 03/02/2023 Depression (CMS/HCC) 12/19/2017 Difficulty sleeping 03/02/2023 Dorsalgia, unspecified 03/02/2023 Encounter for contraceptive management, unspecified 03/02/2023 Endometriosis 03/05/2021 Generalized anxiety disorder ([facility]) 02/27/2020 History of concussion 03/02/2023 History of mononucleosis 03/02/2023 Impaired fasting glucose 03/02/2023 Major depressive disorder, single episode, unspecified ([facility]) 03/02/2023 Neck muscle spasm 03/02/2023 Other chronic pain 03/02/2023 Protein calorie malnutrition ([facility]) 03/02/2023 Sore throat, chronic 03/02/2023 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 Tylenol overdose, intentional self-harm, initial encounter ([facility]) 12/18/2017 Tylenol overdose 12/18/2017 Underweight 03/02/2023 Urinary frequency 03/02/2023 Tinea capitis 03/03/2023 Tension headache 05/11/2023 Ingrowing nail, left great toe 09/13/2024 Primary insomnia 09/13/2024 Resolved Ambulatory Problems Diagnosis Date Noted No Resolved Ambulatory Problems Past Medical History: Diagnosis Date Concussion 2019 Ectopic History of being hospitalized 12/[address] scan 05/22/[address] scan 09/15/2020 Seizures ([facility]) 2001 HISTORY PAST MEDICAL HISTORY SOCIAL HISTORY Past Medical History: Diagnosis Date Concussion 2019 Depression ([facility]) Ectopic ectopic with spontaneous miscarriage Endometriosis History of being hospitalized 12/2017 depression/suicide attempt History of CT scan 05/22/2020 CT scan of brain normal History of CT scan 09/15/2020 CT scan of abdomen and pelvis shows Right Pelvis 3.9 cyst suspected to be ovarian in origin Seizures ([facility]) 2001 Social History Tobacco Use Smoking status: Never Smokeless tobacco: Never Vaping Use Vaping status: Never Used Substance Use Topics Alcohol use: Never Comment: caffeine 1-2 cups/day Drug use: Never FAMILY HISTORY No family history on file. SURGICAL HISTORY Past Surgical History: Procedure Laterality Date BONE AGE STUDY 2010 CHLAMYDIA 01/2022 OVARIAN CYST REMOVAL 12/2020 Dr. Vieira REVIEW OF SYSTEMS Review of Systems: Review of Systems Constitutional: Negative. HENT: Negative. Eyes: Negative. Respiratory: Negative. Cardiovascular: Negative. Gastrointestinal: Negative. Genitourinary: Positive for pelvic pain. Musculoskeletal: Negative. Skin: Negative. Neurological: Negative. All other systems reviewed and are negative. Hematological: Negative. Endocrine: Negative. Allergic/Immunologic: Negative. OBJECTIVE Objective: Physical Exam Constitutional: Appearance: Normal appearance. She is well-developed. Cardiovascular: Rate and Rhythm: Normal rate and regular rhythm. Pulmonary: Effort: Pulmonary effort is normal. Breath sounds: Normal breath sounds. Abdominal: General: Bowel sounds are normal. There is no distension. Palpations: Abdomen is soft. Tenderness: There is no abdominal tenderness. There is no guarding or rebound. Musculoskeletal: General: No swelling. Normal range of motion. Right lower leg: No edema. Left lower leg: No edema. Neurological: Mental Status: She is alert and oriented to person, place, and time. Skin: General: Skin is warm and dry. Psychiatric: Mood and Affect: Mood normal. Behavior: Behavior normal. Vitals and nursing note reviewed. Exam conducted with a statistics intern present. Vitals: Estimated body mass index is 19.35 kg/m as calculated from the following: Height as of 09/13/24: 4' 11 . Weight as of 10/11/24: 95 lb 12.8 oz. BP: No LMP recorded. ASSESSMENT & PLAN ICD-10-CM 1. Pre-op examination Z01.818 2. PCOS (polycystic ovarian syndrome) E28.2 3. Pelvic pain in female R10.2 Pre Op: Patient is doing well but has complaints of pelvic pain and PCOS. I have discussed conservative management vs. surgical management with the patient in detail and patient desires surgical management at this time. Patient will undergo Diagnostic Laparoscopy, possible ELEANOR, possible FOE, possible BSO on 11/25/2024. Surgical consents were signed, mmc was reviewed, and patient is to proceed to [facility]. Pt states having mood changes- denies suicidal and homicidal ideations- rx for celexa faxed to pharmacy. Pt to return in 8 weeks for follow up on celexa Follow Up: Patient is to follow up between 1-2 weeks post operative to assess proper healing and recovery from procedure. Documented by Leida Keene LPN on behalf of: Hermelindo Wyatt DO documented in this encounter [facility] 10-11-2024 History of Presen t illness Narrative Reason for Appointment: Patient ID: Mati Holt is a 24 y.o. female who presents for Endometriosis Patient presents today for Acute Visit. and Consult appointment. MEDICATIONS Current Outpatient Medications Medication Instructions ALPRAZolam (XANAX) 0.25 mg, Oral, Every 12 hours baclofen (Lioresal) 10 MG tablet TAKE 1 TABLET BY MOUTH IN THE MORNING, EVENING, AND BEFORE BEDTIME ALLERGIES No Known Allergies PROBLEMS Active Ambulatory Problems Diagnosis Date Noted Adjustment disorder with depressed mood ([facility]) 01/05/2018 Anxiety 02/13/2020 Other fatigue 03/02/2023 Atrophic gastritis 01/05/2018 Chronic gastritis without bleeding 03/02/2023 Constipation 03/02/2023 Daily headache 03/02/2023 Depression ([facility]) 12/19/2017 Difficulty sleeping 03/02/2023 Dorsalgia, unspecified 03/02/2023 Encounter for contraceptive management, unspecified 03/02/2023 Endometriosis 03/05/2021 Generalized anxiety disorder ([facility]) 02/27/2020 History of concussion 03/02/2023 History of mononucleosis 03/02/2023 Impaired fasting glucose 03/02/2023 Major depressive disorder, single episode, unspecified ([facility]) 03/02/2023 Neck muscle spasm 03/02/2023 Other chronic pain 03/02/2023 Protein calorie malnutrition ([facility]) 03/02/2023 Sore throat, chronic 03/02/2023 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 Tylenol overdose, intentional self-harm, initial encounter ([facility]) 12/18/2017 Tylenol overdose 12/18/2017 Underweight 03/02/2023 Urinary frequency 03/02/2023 Tinea capitis 03/03/2023 Tension headache 05/11/2023 Ingrowing nail, left great toe 09/13/2024 Primary insomnia 09/13/2024 Resolved Ambulatory Problems Diagnosis Date Noted No Resolved Ambulatory Problems Past Medical History: Diagnosis Date Concussion 2019 Ectopic History of being hospitalized 12/[address] scan 05/22/[address] scan 09/15/2020 Seizures ([facility]) 2002 HISTORY PAST MEDICAL HISTORY SOCIAL HISTORY Past Medical History: Diagnosis Date Concussion 2019 Depression ([facility]) Ectopic ectopic with spontaneous miscarriage Endometriosis History of being hospitalized 12/2017 depression/suicide attempt History of CT scan 05/22/2020 CT scan of brain normal History of CT scan 09/15/2020 CT scan of abdomen and pelvis shows Right Pelvis 3.9 cyst suspected to be ovarian in origin Seizures (CMS/HCC) 2001 Social History Tobacco Use Smoking status: Never Smokeless tobacco: Never Vaping Use Vaping status: Never Used Substance Use Topics Alcohol use: Never Comment: caffeine 1-2 cups/day Drug use: Never FAMILY HISTORY No family history on file. SURGICAL HISTORY Past Surgical History: Procedure Laterality Date BONE AGE STUDY 2010 CHLAMYDIA 01/2022 OVARIAN CYST REMOVAL 12/2020 Dr. Vieira REVIEW OF SYSTEMS Review of Systems: Review of Systems Constitutional: Negative. HENT: Negative. Eyes: Negative. Respiratory: Negative. Cardiovascular: Negative. Gastrointestinal: Negative. Genitourinary: Negative. Musculoskeletal: Negative. Skin: Negative. Neurological: Negative. All other systems reviewed and are negative. Hematological: Negative. Endocrine: Negative. Allergic/Immunologic: Negative. OBJECTIVE Objective: Physical Exam Constitutional: Appearance: Normal appearance. She is well-developed. Cardiovascular: Rate and Rhythm: Normal rate and regular rhythm. Pulmonary: Effort: Pulmonary effort is normal. Breath sounds: Normal breath sounds. Abdominal: General: Bowel sounds are normal. There is no distension. Palpations: Abdomen is soft. Tenderness: There is no abdominal tenderness. There is no guarding or rebound. Musculoskeletal: General: No swelling. Normal range of motion. Right lower leg: No edema. Left lower leg: No edema. Neurological: Mental Status: She is alert and oriented to person, place, and time. Skin: General: Skin is warm and dry. Psychiatric: Mood and Affect: Mood normal. Behavior: Behavior normal. Vitals and nursing note reviewed. Exam conducted with a statistics intern present. Vitals: Estimated body mass index is 19.35 kg/m as calculated from the following: Height as of 09/13/24: 4' 11 . Weight as of this encounter: 95 lb 12.8 oz. BP: 110/72 No LMP recorded. ASSESSMENT & PLAN ICD-10-CM 1. PCOS (polycystic ovarian syndrome) E28.2 hCG, quantitative, TSH T4, free CBC and differential Follicle stimulating hormone Luteinizing hormone DHEA-sulfate DHEA US Pelvis w/ TV DHEA 2. Abnormal uterine bleeding (AUB) N93.9 Hemoglobin A1c 3. Pelvic pain in female R10.2 Pt presents with abnormal uterine bleeding and pain possibly endometriosis. Pt was given labs and ultrasound orders to have obtained. Discussed Dx lap with kristi BELTRAN. Pt has been on control for awhile and wants to make sure she is able to conceive. Pt to start three months of control to reset cycles. Rx for apri faxed to pharmacy. Pt to return for preop. Documented by Leida Keene LPN on behalf of: Hermelindo Wyatt DO documented in this encounter [facility] 09-13-2024 History of Presen t illness Narrative Associated Problem(s): Primary insomnia Consider Valium Associated Problem(s): Other fatigue Check CBC Multivitamin that iron and Vitamin B12 Associated Problem(s): Tension headache Increase Baclofen Consider Flexeril Associated Problem(s): Ingrowing nail, left great toe Consider referral to Podiatry Images from the original note were not included. Subjective Patient ID: Mati Holt is a 24 y.o. female who presents for tension headache. Pt would like to know if possible her headaches could be from the depo control, she is no longer taking this , she stopped taking this two months ago Neck Pain This is a chronic problem. The current episode started more than 1 month ago. The problem occurs constantly. The problem has been unchanged. The pain is associated with nothing. The pain is present in the occipital region. The pain is moderate. Associated symptoms include headaches. She has tried nothing for the symptoms. The treatment provided mild relief. Headache This is a recurrent problem. The current episode started more than 1 year ago. The problem occurs constantly. The problem has been gradually worsening. The pain quality is similar to prior headaches. The quality of the pain is described as aching. The pain is moderate. Associated symptoms include neck pain. The treatment provided moderate relief. There is no history of cancer or hypertension. Current Outpatient Medications on File Prior to Visit Medication Sig Dispense Refill ALPRAZolam (Xanax) 0.25 MG tablet Take 1 tablet (0.25 mg) by mouth every 12 (twelve) hours for 60 doses 60 tablet 0 [DISCONTINUED] baclofen (Lioresal) 5 MG tablet TAKE 1 TABLET BY MOUTH IN THE MORNING, EVENING AND BEFORE BEDTIME 270 tablet 0 [DISCONTINUED] medroxyPROGESTERone (Depo-Provera) 150 MG/ML suspension prefilled syringe injection syringe INJECT 1 ML INTRAMUSCULARLY EVERY 11-13 WEEKS 1 mL 4 No current facility-administered medications on file prior to visit. I have reviewed and reconciled the history and medication list with the patient today. No Known Allergies Social History Tobacco Use Smoking status: Never Smokeless tobacco: Never Vaping Use Vaping status: Never Used Substance Use Topics Alcohol use: Never Comment: caffeine 1-2 cups/day Drug use: Never No family history on file. Past Medical History: Diagnosis Date Concussion 2019 Depression (CMS/HCC) Ectopic ectopic with spontaneous miscarriage Endometriosis History of being hospitalized 12/2017 depression/suicide attempt History of CT scan 05/22/2020 CT scan of brain normal History of CT scan 09/15/2020 CT scan of abdomen and pelvis shows Right Pelvis 3.9 cyst suspected to be ovarian in origin Seizures (CMS/HCC) 2001 Past Surgical History: Procedure Laterality Date BONE AGE STUDY 2011 CHLAMYDIA 01/2022 OVARIAN CYST REMOVAL 12/2020 Dr. Vieira Visit Vitals BP 102/72 Pulse 68 Ht 4' 11 Wt 95 lb SpO2 98% BMI 19.19 kg/m OB Status Having periods Smoking Status Never BSA 1.34 m Review of Systems Constitutional: Positive for fatigue. Musculoskeletal: Positive for neck pain. Neurological: Positive for headaches. Objective Physical Exam Constitutional: General: She is not in acute distress. Appearance: Normal appearance. HENT: Head: Normocephalic. Neck: Vascular: No carotid bruit. Cardiovascular: Rate and Rhythm: Normal rate and regular rhythm. Pulmonary: Effort: Pulmonary effort is normal. No respiratory distress. Breath sounds: Normal breath sounds. Musculoskeletal: Arms: Comments: Trigger points Neurological: General: No focal deficit present. Mental Status: She is alert and oriented to person, place, and time. Psychiatric: Mood and Affect: Mood normal. Assessment/Plan Problem List Items Addressed This Visit Other fatigue Check CBC Multivitamin that iron and Vitamin B12 Relevant Orders CBC Endometriosis Relevant Orders Ambulatory referral to Gynecology Tension headache - Primary Increase Baclofen Consider Flexeril Relevant Medications baclofen (Lioresal) 10 MG tablet Ingrowing nail, left great toe Consider referral to Podiatry Primary insomnia Consider Valium No follow-ups on file. documented in this encounter [facility] 11-18-2022 Evaluation note Encounter Date Diagnosis Assessment Notes Nov, Vaginal discharge (ICD-10 - N89.8) Vag + performed in office today. Will treat prophylactically for BV based on history of BV in the past, reports of symptoms. Recommended patient be treated for Chlamydia today in office as well, but patient states last time she was on Doxycycline or Azithromycin she became very ill. Patient reports that she will wait for specimen results and if positive, will follow up with [facility], as she states the last time she was positive she was treated with IV infusion. Advised patient that specimen was sent to lab and patient will be notified of results. Tx plan may be altered at time of results. Stressed importance of not drinking alcohol while taking Flagyl as it will cause reaction. Take as directed. Patient to follow with PCP or [facility] as needed for persistent or worsening symptoms. Immediate eval if abdominal pain, fever, chills, body aches, back/flank pain, nausea, urinary complaints. Avoid douching and sexual activity at this time. Patient verbalizes understanding and is agreeable to treatment plan. Nov, Dysuria (ICD-10 - R30.0) [facility] Other 05-23-2022 Evaluation + Plan note Diagnostic Tests Pending * NuSwab Vaginitis Plus (VG[facility]* Encounter Date Diagnosis Assessment Notes Treatment Notes Treatment Clinical Notes Aug, High risk sexual behavior, unspecified type (ICD-10 - Z72.51) Aug, Vaginal discharge (ICD-10 - N89.8) Drink plenty fluids, get plenty of rest. Take the metronidazole gel, pills, Zithromax pills as prescribed with food. No intercourse for 2 weeks. Follow-up with your family physician if no improvement in 2 to 3 days. Always use condoms [facility] Other Evaluation noteNo assessment information available [facility] Work Phone: Evaluation noteNo InformationNort [place] Other Evaluation note* Diagnosis Tension headache- Primary Anxiety Anxiety state, unspecified Tension headache- Primary Anxiety Anxiety state, unspecified Tension headache- Primary Endometriosis Endometriosis, site unspecified Other fatigue Ingrowing nail, left great toe Ingrowing nail Primary insomnia Persistent disorder of initiating or maintaining sleep [facility] Diagnosis Tension headache- Primary Anxiety Anxiety state, unspecified Tension headache- Primary Anxiety Anxiety state, unspecified Tension headache- Primary Endometriosis Endometriosis, site unspecified Other fatigue Ingrowing nail, left great toe Ingrowing nail Primary insomnia Persistent disorder of initiating or maintaining sleep PCOS (polycystic ovarian syndrome) Polycystic ovaries Abnormal uterine bleeding (AUB) Pelvic pain in female Unspecified symptom associated with female genital organs Dyspareunia in female [facility] Diagnosis Tension headache- Primary Anxiety Anxiety state, unspecified Tension headache- Primary Anxiety Anxiety state, unspecified Tension headache- Primary Endometriosis Endometriosis, site unspecified Other fatigue Ingrowing nail, left great toe Ingrowing nail Primary insomnia Persistent disorder of initiating or maintaining sleep Pre-op examination PCOS (polycystic ovarian syndrome) Polycystic ovaries Pelvic pain in female Unspecified symptom associated with female genital organs Mood disorder (CMS/HCC) Unspecified episodic mood disorder documented [facility] N[facility] - Reported* Type Description Date Medical History anxiety Medical History chronic depression Medical History endometriosis Surgical History cyst removal Hospitalization History see above [facility] Other Hospital course Narrative No data available [facility] this section [facility] No data available for this section [facility] No data available for this section [facility] Summary Purpose Family History Relationship Condition Age at Onset Recorded Date/T alexi brother Unknown Advance Directives Advance Directive Response Recorded Date/ Time Advance Directives No October 29 10:33am Advance Directive Response Recorded Date/ Time Advance Directives No October 29 9:33am Chief Complaint and Reason for Visit Chief Complaint Admit Date possible uti, Frequency, burning Novembe r 2023 1:49pm Additional Source Comments Care Team (unrecognized sect ion and content) Team Status: Inactive Member Role Status Dates Marily Vega APRN Attending Provider Active Team Status: Active Member Role Status Dates PHYSICIAN NO FAMILY Primary Care Provider Active Team Status: Inactive Member Role Status Dates PHYSICIAN NO FAMILY Primary Care Provider Active Start: June 28, 2024 End: June 28, 2024 Cammy Allison APRN Attending Provider Active Start: June 28, 2024 End: June 28, 2024 Divorce Lawyer Relationship Specialty Start Date End Date Marcus Villanueva MD [address] [facility] [address] [place] [address] PCP - [facility] 01/29/23 Marcus Villanueva MD [address] [facility] [address] [place] [address] PCP - [facility] 11/15/22 Divorce Lawyer Relationship Specialty Start Date End Date Marcus Villanueva MD [address] [facility] [address] [place] [address] PCP - [facility] 01/29/23 Marcus Villanueva MD [address] [facility] [address] [place] [address] PCP [facility] 11/15/22 Divorce Lawyer Relationship Specialty Start Date End Date Marcus Villanueva MD [address] [facility] [address] [place] [address] PCP - [facility] 01/29/23 Marcus Villanueva MD [address] [facility] [address] [place] [address] PCP - [facility] 11/15/22 Divorce Lawyer Relationship Specialty Start Date End Date Marcus Villanueva MD [address] [facility] [address] [place] [address] PCP - [facility] 01/29/23 Marcus Villanueva MD [address] [facility] [address] [place] [address] PCP - [facility] 11/15/22 Divorce Lawyer Relationship Specialty Start Date End Date Marcus Villanueva MD [address] [facility] [address] [place] [address] PCP - [facility] 01/29/23 Marcus Villanueva MD [address] [facility] [address] [place] [address] PCP - [facility] 11/15/22 INFORMATION SOURCE (unrecogn ized section and content) DATE CREATED AUTHOR 02/10/2022 [facility] DATE CREATED AUTHOR AUTHOR'S ORGANIZ ATION 11/24/2022 [facility] DATE CREATED AUTHOR AUTHOR'S ORGANIZ ATION 07/04/2024 [facility] DATE CREATED AUTHOR AUTHOR'S ORGANIZ ATION 11/03/2024 [facility] EPIC REASON FOR VISIT (unrecogniz ed section and content) Reason Comments tension headache Reason Comments Endometriosis Reason Comments Pre-op Visit Goals (unrecognized section and content) Goals may be documented in a n alternate section FOR RECORDS PERTAINING TO PATIENTS WHO ARE OR HAVE BEEN ENROLLED IN A CHEMICAL DEPENDENCY/SUBSTANCEABUSE PROGRAM, SOME INFORMATION MAY BE OMITTED. This clinical summary was aggregated from multiple sources. Caution should be exercised in using it in the provision of clinical care. This summary normalizes information from multiple sources, and as a consequence, information in this document may materially change the coding, format and clinical context of patient data. In addition, data may be omitted in some cases. CLINICAL DECISIONS SHOULD BE BASED ON THE PRIMARY CLINICAL RECORDS. [facility]. provides no warranty or guarantee of the accuracy or completeness of information in this document.
[2024-11-25 10:16] LABS: Basophils Absolute Auto 0.1 10^3/uL (0.0-0.1); Basophils Percent Auto 1.3 % (0.2-2.0); Eosinophils Absolute Auto 0.1 10^3/uL (0.0-0.7); Eosinophils Percent Auto 2.5 % (0.9-7.0); Hematocrit 41.4 % (36.0-48.0); Hemoglobin 13.6 g/dL (12.0-16.0); Immature Granulocytes Abs Auto 0.02 10^3/uL (0.00-0.03); Immature Granulocytes Pct Auto 0.4 % (0.0-0.5); Lymphocytes Absolute Auto 1.6 10^3/uL (1.2-3.8); Lymphocytes Percent Auto 30.9 % (20.5-60.0); Mean Corpuscular HGB Conc 32.9 g/dL (29.9-35.2); Mean Corpuscular Hemoglobin 29.1 pg (26.7-34.0); Mean Corpuscular Volume 88.7 fL (81.0-99.0); Mean Platelet Volume 9.5 fL (9.5-13.5); Monocytes Absolute Auto 0.5 10^3/uL (0.3-0.8); Neutrophils Absolute Auto 2.9 10^3/uL (1.4-6.5); Neutrophils Percent Auto 55.9 % (43.0-75.0); Platelet Count 231 10^3/uL (150-450); Red Blood Count 4.67 10^6/uL (4.20-5.40); Red Cell Distribution Width 12.1 % (11.0-15.0); White Blood Count 5.3 10^3/uL (4.0-11.0)
[2024-11-25 10:40] LABS: HCG Quantitative <1 mIU/mL
[2024-11-25] MEDS: LACTATED RINGER'S SOLUTION 1,000 ML 50 ML IV ×2 (11:04→11:56)
--- NOTE | 2024-11-25 12:03 | PM.ONB ---
Brief Operative Note Date of procedure: 11/25/24 Pre-op diagnosis general: pelvic pain Post-op diagnosis: same as pre-op Procedure: NAME OF PROCEDURE: [diagnostic laparoscopy ] findings-small paratubal cyst, otherwise normal pelvic anatomy seen PROCEDURE: The patient was taken back to the Operating Room where she was placed in dorsal lithotomy position after given general anesthesia. The patient was prepped and draped in normal sterile fashion. A sponge stick was placed into the patient's vagina. Attention was turned to the patient's abdomen, where a small umbilical incision was made. The fascia was tented using Mi clamps and the fascia was entered sharply. Confirmation of intraabdominal placement of the 10 mm port was confirmed under direct visualization using a laparoscope. The patient's abdomen was then insufflated using CO2 gas with approximately 4 liters. A second port was placed left laterally, this was done under direct visualization with a 5 mm port. Survey of the patient's abdomen demonstrated normal liver and gallbladder. Survey of the patient's pelvic anatomy demonstrated normal appearing rt and lt ovary and tubes as well as normal appearing uterus. No endometrial implants could be noted, no evidence of any pelvic disease was seen, normal appearing pelvic cavity. All instruments were removed from the patient's abdomen. The patient's abdomen was deinsufflated of CO2 gas. The patient tolerated the procedure well. Sponge stick was removed from the patient's vagina. The patient's infraumbilical fascia was closed using #0 Vicryl on a GI needle. The patient's skin was closed laterally and infraumbilically using 4-0 Vicryl. The patient tolerated the procedure well. Sponge, lap and needle counts were correct x 2. The patient was taken to Recovery Room in stable condition. Anesthesia: YOSELINA Surgeon: Ramone Wyatt Superintendent Operations Division: Elodia Brice Estimated blood loss (mL): 5 Pathology: none sent Condition: stable Disposition: PACU Urinary Catheter Management Urinary Catheter Management Urethral: Cath placed during this visit: no
[2024-11-25] MEDS: HYDROCODONE/ACET 5-325 MG TABLET 1 TAB PO (13:19)
== END 2024-11-25 14:08 | disposition home or self-care (01) ==
PROVIDERS: PCP Family Medicine; Visit Provider Obstetrics & Gynecology
PROC: (CPT 840; principal; 2024-11-25 11:10)
DX: E28.2 Polycystic ovarian syndrome (principal); R10.2 Pelvic and perineal pain; N83.8 Other noninflammatory disorders of ovary, fallopian tube and broad ligament
CPT/HCPCS: 49320; 36415; 84702; 85025; J0131; J1100; J1885; J2250; J2405; J3010

== ENCOUNTER 2025-01-28 21:45 | Emergency (ER) | payer OTHER, SELFPAY ==
--- OUTSIDE RECORDS SUMMARY | 2025-01-28 21:52 | XMS_ITS | CCD ---
Author Organization [facility] Care Team Providers Care Precision Inspector Name Role Phone MARCUS VILLANUEVA Primary Care Physician [phone] Niharika Valencia Unavailable AMRIT Vega Attending Provider Marily Vega Unavailable KAY, DR VAN Primary Care Unavailable VESTA, DR ROSALIO Mcbride Admitting Unavailnasir LEMONS, DR ROSALIO Mcbride Attending Unavailabl rodney TRIVEDI ., NARGIS Consulting Unavailable SIMIN RICO Consulting [...] MATEUS PETIT Consulting Unavailable HEMMER, DR LEIDA Gunn Consulting Unavailable HEMMER, DR LEIDA Gunn Admitting Unavailable HEMMER, DR LEIDA Gunn Attending Unavailable KAY, DR VAN Primary Care Unavailable RUSSELL, BIBI Consulting Unavailable HEMMER, DR LEIDA Gunn Consulting Unavailable Cammy Allison Attending Unavailable Cammy Allison Admitting Unavailable Marcus Villanueva MD Primary Care Provider [phone] Marcus Villanueva MD Unavailable MARCUS VILLANUEVA Attending Unavailable HERMELINDO WYATT Attending Unavailable MAIKOL METZ Attending Unavailable ERMELINDA GALEANO Attending Unavailable HERMELINDO WYATT Attending Unavailable LYNDA VELASCO Attending Unavailable Medications Current Medications Medication Drug Class(es) Dates Sig (Normalized) Sig (Original) azithromycin 500 mg oral tablet (1 source) Macrolide Antimicrobial Start: 09-07-19 take 2 tablets by mouth once Zithromax 500 MG 2 tabs Orally once for 1 days Aug, Active cetirizine hydrochloride 10 mg oral tablet (2 sources) Histamine-1 Receptor Antagonist Start: 05-22-20 take 1 tablet by mouth once daily cetirizine 10 mg Tab 10 mg = 1 tab(s), Oral, Daily, # 30 tab(s), Refills(s) 0 Start Date: 05/22/20 Status: Ordered citalopram 10 mg oral tablet (6 sources) Serotonin Reuptake Inhibitor Start: 11-02-19 End: 11-02-19 take 1 tablet by mouth once daily citalopram (CeleXA) 10 MG tablet Indications: Mood disorder (CMS/HCC) Take 1 tablet (10 mg) by mouth Daily 30 tablet 3 11/29/2024 03/29/2025 Active Flonase 0.05 mg/inh nasal spray (1 source) Start: 05-22-20 take 1 spray(s) nasal route twice daily Flonase 0.05 mg/inh nasal spray 1 spray(s), Nasal, BID, 16 gram, Refill(s) 0, each nostril Start Date: 05/22/20 Status: Ordered fluticasone propionate 0.05 mg/actuat metered dose nasal spray (1 source) Corticosteroid Start: 05-22-20 take 1 spray(s) nasal route twice daily Flonase 0.05 mg/inh nasal spray 1 spray(s), Nasal, BID, 16 gram, Refill(s) 0, each nostril Start Date: 05/22/20 Status: Ordered Medroxyprogesterone 150 mg/mL syringe (2 sources) Start: 06-28-20 Medroxyprogesterone 150 mg/mL syringe Active MG IM June 28, 2024 12:00am metroNIDAZOLE (5 sources) Nitroimidazole Antimicrobial Start: 06-28-20 Metronidazole 0.75 % (37.5mg/5 gram) gel Active 1 APPLICATOR VAGINAL Daily 70 5 June 28, 2024 12:00am Start: 11-18-2022 take 1 tablet by georgi every twelve hours metroNIDAZOLE 500 MG 1 [...] Sig (Original) ALPRAZolam 0.25 mg oral tablet (11 sources) Benzodiazepine Start: 12-08-2023 End: 12-07-2024 take 1 tablet by mouth every twelve hours for anxiety and anxiety ALPRAZolam (Xanax) 0.25 MG tablet Indications: Anxiety Take 1 tablet (0.25 mg) by mouth every 12 (twelve) hours for 60 doses 60 tablet 12/08/2023 12/07/2024 Discontinued (Other) baclofen 10 mg oral tablet (13 sources) gamma-Aminobutyric Acid-ergic Agonist Start: 09-13-2024 End: 12-07-2024 take 1 tablet by mouth at bedtime baclofen (Lioresal) 10 MG tablet Indications: Tension headache TAKE 1 TABLET BY MOUTH IN THE MORNING, EVENING, AND BEFORE BEDTIME 270 tablet 1 10/07/2024 12/07/2024 Discontinued (Other) Start: 12-30-2023 End: 09-13-2024 take 1 tablet by mouth at bedtime baclofen (Lioresal) 5 MG tablet Indications: Tension headache TAKE 1 TABLET BY MOUTH IN THE MORNING, EVENING AND BEFORE BEDTIME 270 tablet 12/30/2023 09/13/2024 Discontinued (Other) cefTRIAXone (2 sources) Cephalosporin Antibacterial Start: 09-07-2021 Rocephin 500 mg Aug, 500 mg desogestrel 0.15 mg / ethinyl estradiol 0.03 mg oral tablet (9 sources) Progestin, Estrogen Start: 10-11-2024 End: 10-11-2025 desogestrel-ethinyl estradiol (Apri) 0.15-30 MG-MCG tablet Indications: Abnormal uterine bleeding (AUB) Take 1 tablet by mouth Daily 28 tablet 12 10/11/2024 12/07/2024 Discontinued (Other) 1 ml medroxyPROGESTERone acetate 150 mg/ml prefilled syringe (2 sources) Progestin Start: 07-20-2023 End: 09-13-2024 medroxyPROGESTERone (Depo-Provera) 150 MG/ML suspension prefilled syringe injection syringe Indications: Encounter for contraceptive management, unspecified INJECT 1 ML INTRAMUSCULARLY EVERY 11-13 WEEKS 1 mL 4 07/20/2023 09/13/2024 Discontinued (Other) meloxicam 7.5 mg oral tablet (2 sources) Nonsteroidal Anti-inflammatory Drug Start: 09-13-2024 End: 09-13-2024 take 1 tablet by mouth once daily meloxicam (Mobic) 7.5 MG tablet Indications: Tension headache Take 1 tablet (7.5 mg) by mouth Daily 30 tablet 11 09/13/2024 09/13/2024 Discontinued (Side effects) Problems Active Problems Problem Classification Problem Date Documented Date Episodic/Chronic Abdominal pain (7 sources) Unspecified abdominal pain; Translations: [Pain in female pelvis] Onset: 11-22-2022 Episodic Adjustment disorders (11 sources) Adjustment disorder with depressed mood; Translations: [Adjustment disorder with depressed mood] Onset: 01-05-2018 03-02-2023 Chronic Anxiety disorders (20 sources) Anxiety disorder, unspecified; Translations: [Anxiety] Onset: 02-13-2020 03-02-2023 Chronic Conditions associated with dizziness or vertigo (4 sources) Dizziness and giddiness; Translations: [DIZZINESS AND GIDDINESS] Onset: 10-30-2022 Episodic Endometriosis (15 sources) Endometriosis (clinical); Translations: [Endometriosis, unspecified] Onset: 03-05-2021 09-13-2024 Chronic Gastritis and duodenitis (20 sources) Atrophic gastritis; Translations: [Chronic atrophic gastritis without bleeding] Onset: 01-05-2018 03-02-2023 Chronic Headache; including migraine (13 sources) Tension-type headache; Translations: [Tension-type headache, unspecified, not intractable] Onset: 05-11-2023 09-13-2024 Chronic Headache; including migraine (1 source) Headache; including migraine; Translations: [HEADACHE UNSPECIFIED] Onset: 11-08-2022 Impulse control disorders, NEC (11 sources) Trichotillomania; 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] Onset: 04-05-2021 03-02-2023 Chronic Miscellaneous mental health disorders (13 sources) Primary insomnia; Translations: [Primary insomnia] Onset: 09-13-2024 09-13-2024 Chronic Mood disorders (20 sources) Depressive disorder; Translations: [Depression] Onset: 12-19-2017 03-02-2023 Chronic Nutritional deficiencies (11 sources) Deficiency of macronutrients; Translations: [Unspecified protein-calorie malnutrition] Onset: 03-02-2023 03-02-2023 Chronic Other aftercare (1 source) Other marine oil terminal superintendent (current) drug therapy; Translations: [OTH LONG-TERM CURRENT DRUG THERAPY] Onset: 11-24-2022 Episodic Other [...] Resolved: 09-07-2021 Episodic Other nervous system disorders (11 sources) Chronic pain; Translations: [Other chronic pain] Onset: 03-02-2023 03-02-2023 Chronic Other skin disorders (13 sources) Ingrowing great toenail; Translations: [Ingrowing nail] Onset: 09-13-2024 09-13-2024 Episodic Other upper respiratory disease (11 sources) Sore throat - chronic; Translations: [Chronic pharyngitis] Onset: 03-02-2023 03-02-2023 Chronic Residual codes; unclassified (4 sources) Postoperative state; Translations: [Other specified postprocedural states] Onset: 12-07-2024 12-07-2024 Episodic Unclassified (3 sources) LOW BACK PAIN, UNSPECIFIED; Translations: [LOW BACK PAIN, UNSPECIFIED] Onset: 06-17-2022 Past or Other Problems Problem Classification Problem Date Documented Da te Episodic/Chronic Contraceptive and procreative management (11 sources) Patient encounter status; Translations: [Encounter for contraceptive management, unspecified] Onset: 03-02-2023 03-02-2023 Episodic Diabetes mellitus without complication (11 sources) Impaired fasting glycemia; Translations: [Impaired fasting glucose] Onset: 03-02-2023 03-02-2023 Episodic Genitourinary symptoms and ill-defined conditions (13 sources) Dysuria; Translations: [Increased frequency of urination] Onset: 03-02-2023 Episodic Headache; including migraine (11 sources) Daily headache; Translations: [Daily headache] Onset: 03-02-2023 03-02-2023 Episodic Intracranial injury (12 sources) Personal history of traumatic brain injury; Translations: [History of concussion injury of brain] Onset: 11-08-2022 03-02-2023 Episodic Malaise and fatigue (17 sources) Other fatigue; Translations: [Fatigue] Onset: 01-07-2022 Episodic Mycoses (11 sources) Tinea capitis; Translations: [Tinea barbae and tinea capitis] Onset: 03-03-2023 03-03-2023 Episodic Nonspecific chest pain (1 source) Chest pain, unspecified; Translations: [CHEST PAIN UNSPECIFIED] Onset: 01-09-2022 Episodic Other connective tissue disease (11 sources) Muscle spasm of cervical muscle of neck; Translations: [Other muscle spasm] Onset: 03-02-2023 03-02-2023 Episodic Other gastrointestinal disorders (11 sources) Constipation; Translations: [Constipation, unspecified] Onset: 03-02-2023 03-02-2023 Episodic Other infections; including parasitic (11 sources) History of glandular fever; Translations: [Personal history of other infectious and parasitic diseases] Onset: 03-02-2023 03-02-2023 Episodic Other lower respiratory disease (1 source) Shortness of breath; Translations: [SHORTNESS OF BREATH] Onset: 01-09-2022 Episodic Other nutritional; endocrine; and metabolic disorders (11 sources) Underweight; Translations: [Underweight] Onset: 03-02-2023 03-02-2023 Episodic Other skin disorders (3 sources) Rash and other nonspecific skin eruption; Translations: [RASH OTH NONSPECIFIC SKIN ERUPTION] Onset: 12-31-2021 Episodic Other skin disorders (1 source) Follicular disorder, unspecified; Translations: [FOLLICULAR DISORDER UNSPECIFIED] Onset: 01-01-2022 Episodic Poisoning by other medications and drugs (11 sources) Acetaminophen overdose; Translations: [Poisoning by 4-Aminophenol derivatives, accidental (unintentional), initial encounter] Onset: 12-18-2017 03-02-2023 Episodic Residual codes; unclassified (1 source) High risk heterosexual behavior Onset: 09-07-2021 Resolved: 09-07-2021 Episodic Residual codes; unclassified (11 sources) Difficulty sleeping ; Translations: [Sleep disorder, unspecified] Onset: 03-02-2023 03-02-2023 Episodic Spondylosis; intervertebral disc disorders; other back problems (11 sources) Backache; Translations: [Dorsalgia, unspecified] Onset: 03-02-2023 03-02-2023 Episodic Suicide and intentional self-inflicted injury (11 sources) Intentional paracetamol overdose; Translations: [Poisoning by 4-Aminophenol derivatives, intentional self-harm, initial encounter] Onset: 12-18-2017 03-02-2023 Episodic Unclassified (1 source) LOW BACK PAIN, UNSPECIFIED; Translations: [LOW BACK PAIN, UNSPECIFIED] Onset: 06-16-2022 Results Test Name Value Interpretation Reference Range Facility ALL CBC WITH AUTO DIFFon BASOPHILS ABSOLUTE AUTO 0.1 [facility] Basophils/100 WBC (Bld) 1.3 % 0.2 - 2.0 % [facility] Eosinophils/100 WBC (Bld) 2.5 % 0.9 - 7.0 % [facility] Erythrocyte distribution width (RBC) [Ratio] 12.1 % 11.0 - 15.0 % [facility] Hematocrit (Bld) [Volume fraction] 41.4 % 36.0 - 48.0 % [facility] Hemoglobin (Bld) [Mass/Vol] 13.6 g/dL 12.0 - 16.0 g/dL [facility] IMMATURE GRANULOCYTES ABS AUTO 0.02 [facility] Immature granulocytes/100 WBC (Bld) 0.4 % 0.0 - 0.5 % [facility] LYMPHOCYTES ABSOLUTE AUTO 1.6 [facility] Lymphocytes/100 WBC (Bld) 30.9 % 20.5 - 60.0 % [facility] MCH (RBC) [Entitic mass] 29.1 pg 26.7 - 34.0 pg [facility] MCHC (RBC) [Mass/Vol] 32.9 g/dL 29.9 - 35.2 g/dL [facility] MCV (RBC) [Entitic vol] 88.7 fL 81.0 - 99.0 fL [facility] MONOCYTES ABSOLUTE AUTO 0.5 [facility] Monocytes/100 WBC (Bld) 9 % 1.7 - 12.0 % [facility] NEUTROPHILS ABSOLUTE AUTO 2.9 [facility] Neutrophils/100 WBC (Bld) 55.9 % 43.0 - 75.0 % [facility] Platelet mean volume (Bld) [Entitic vol] 9.5 fL 9.5 - 13.5 fL [facility] TBH EO # 0.1 [facility] TBH PLT 231 [facility] TB RBC 4.67 [facility] WBC 5.3 [facility] US PELVIS W/ TRANSVAGINALon 11-16-2024 [place] [address] Ultrasound Report Signed Patient: MATI HOLT MR#: [id number] : 2000 Acct:[id number] Age/Sex: 24 / F ADM Date: 11/16/24 Loc: US Attending Dr: Hermelindo Wyatt D.O. Ordering Physician: Hermelindo Wyatt D.O. Date of Service: 11/16/24 Procedure(s): US pelvis w/ transvaginal Accession Number(s): [id number] cc: MARCUS VILLANUEVA ; Hermelindo Wyatt D.O. [place] [id number] Patient Name: MATI HOLT MRN: [facility]:[id number] date: 2000 Sex: F Assigned Patient Location: US Current Patient Location: US Accession/Order Number: [id number] Exam Date: 11/16/2024 19:41 Report Date: 11/16/2024 [...] Miko Wise M.D.11/16/2024 7:45 PM Dictation Location: [place] [address] Electronically authenticated by: [id number] Y Date: 11/16/2024 19:45 Dictated By: Miko Wise D.O. Signed By: 11/16/241947 DD/ 44 TD/TT: Lay Out Former: [facility] Radiology, Radiologist, - 11/16/2024 [place] [address] Ultrasound Report Signed Patient: MATI HOLT MR#: [id number] : 2000 Acct:[id number] Age/Sex: 24 / F ADM Date: 11/16/24 Loc: US Attending Dr: Hermelindo Wyatt D.O. Ordering Physician: Hermelindo Wyatt D.O. Date of Service: 11/16/24 Procedure(s): US pelvis w/ transvaginal Accession Number(s): [id number] cc: MARCUS VILLANUEVA ; Hermelindo Wyatt D.O. [place] [id number] Patient Name: MATI HOLT MRN: [facility]:[id number] date: 2000 Sex: F Assigned Patient Location: Current Patient Location: US Accession/Order Number: [id number] Exam Date: 11/16/2024 19:41 Report Date: 11/16/2024 [...] Miko Wise M.D.11/16/2024 7:45 PM Dictation Location: [facility] Electronically authenticated by: [id number] Y Date: 11/16/2024 19:45 Dictated By: Miko Wise D.O. Signed By: 11/16/241947 DD/ 44 TD/TT: Lay Out Former: [facility] Radiology Study observation (narrative) [facility] US PELVIS W/ TRANSVAGINALOrd ered By: Radiologist Radiology on 11-16-2024 [facility] Work Phone: ALL CBC WITH AUTO DIFFon BASOPHILS ABSOLUTE AUTO 0.1 [facility] Basophils/100 WBC (Bld) 1 % 0.2 - 2.0 % [facility] Eosinophils/100 WBC (Bld) 3.3 % 0.9 - 7.0 % [facility] Erythrocyte distribution width (RBC) [Ratio] 12.3 % 11.0 - 15.0 % [facility] Hematocrit (Bld) [Volume fraction] 42.8 % 36.0 - 48.0 % [facility] Hemoglobin (Bld) [Mass/Vol] 14.1 g/dL 12.0 - 16.0 g/dL [facility] IMMATURE GRANULOCYTES ABS AUTO 0.01 [facility] Immature granulocytes/100 WBC (Bld) 0.2 % 0.0 - 0.5 % [facility] LYMPHOCYTES ABSOLUTE AUTO 1.5 [facility] Lymphocytes/100 WBC (Bld) 32 % 20.5 - 60.0 % [facility] MCH (RBC) [Entitic mass] 29.1 pg 26.7 - 34.0 pg [facility] MCHC (RBC) [Mass/Vol] 32.9 g/dL 29.9 - 35.2 g/dL [facility] MCV (RBC) [Entitic vol] 88.2 fL 81.0 - 99.0 fL [facility] MONOCYTES ABSOLUTE AUTO 0.3 [facility] Monocytes/100 WBC (Bld) 5.9 % 1.7 - 12.0 % [facility] NEUTROPHILS ABSOLUTE AUTO 2.8 [facility] Neutrophils/100 WBC (Bld) 57.6 % 43.0 - 75.0 % [facility] Platelet mean volume (Bld) [Entitic vol] 10 fL 9.5 - 13.5 fL [facility] TBH EO # 0.2 [facility] TBH PLT 248 [facility] TBH RBC 4.85 [facility] TBH WBC 4.8 [facility] Urine Cultureon 06-28-2024 Bacteria identified Cx Nom (U) No Growth 2 Days PERFORMED BY: [place] [address] PATHOLOGIST LADIES' LOCKER ROOM ATTENDANT DEVIN HEREDIA M.D. Normal [facility] Comment on above: Performed By: #### V AGINITIS+ #### [facility] , #### CUU #### [address] Vaginitis Plus (VG+)on 06-28 Atopobium Vaginae High - 2 Critically abnormal . [facility] Comment on above: Result Comment: This test was developed and its performance characteristics determined by [employer]. It has not been cleared or approved by the Food and Drug Administration. Performed By: #### V AGINITIS+ #### [facility] , #### CUU #### [facility] [address] [place] [address] BVAB2 Low - 0 Normal . [facility] Comment on above: Result Comment: This test was developed and its performance characteristics determined by [facility]. It has not been cleared or approved by the Food and Drug Administration. Performed By: #### V AGINITIS+ #### [facility] , #### CUU #### [address] Demetra Albicans, CYNDEE Negative Normal Negative [facility] Comment on above: Result Comment: This test was developed and its performance characteristics determined by [facility]. It has not been cleared or approved by the Food and Drug Administration. Performed By: #### V AGINITIS+ #### [facility] , #### CUU #### [address] Demetra Glabrata, CYNDEE Negative Normal Negative [facility] Comment on above: Result Comment: This test was developed and its performance characteristics determined by [facility]. It has not been cleared or approved by the Food and Drug Administration. PERFORMED BY: [place] [address] PATHOLOGIST LADIES[employer] LOCKER ROOM ATTENDANT DEVIN HEREDIA M.D. Performed By: #### V AGINITIS+ #### [facility] , #### CUU #### [address] Chlamydia Trachomotis, CYNDEE Negative Normal Negative [facility] Comment on above: Performed By: #### V AGINITIS+ #### [facility] , #### CUU #### [place] [address] [place] Megasphaera Low - 0 Normal . [facility] Comment on above: [...] AGINITIS+ #### [facility] , #### CUU #### [address] Neisseria Gonorrhoeae, CYNDEE Negative Normal Negative [facility] Comment on above: Result Comment: Perf ormed at: =G - [facility] [address] [id number] Automation Machine Builder: Lilia Sheets MD, Phone: [phone] Performed By: #### V AGINITIS+ #### [facility] , #### CUU #### [address] Tric Vag CYNDEE Negative Normal Negative [facility] Comment on above: Performed By: #### V AGINITIS+ #### [facility] , #### CUU #### [address] ABD/PELVIS WO CONon 11-22 CT [...] by: HUSSEIN YOUSIF Date: 2022-11-22 01:01 Normal [facility] Urinalysis - AUTOMATEDon Appearance (U) clear BRIKA Other Bilirubin Ql (U) Negative [employer] Other Color (U) light yellow [employer] Other Glucose Ql (U) Negative BRIKA Other Hemoglobin Ql (U) Negative [employer] Other Ketones Ql (U) Negative BRIKA Other Leukocyte esterase Test strip Ql (U) trace [employer] Other Nitrite Ql (U) Negative [employer]RIKA Other pH (U) 7.0 [pH] [employer] Other Protein Ql (U) Negative [employer]KA Other Specific gravity (U) [Rel density] 1.015 [employer] Other Urobilinogen (U) [Mass/Vol] 0.2 mg/dL [employer] Other Urinalysis - AUTOMATED No rtFiFully Other CT HEAD WO CONon 10-30-2022 CT [...] acute intracranial abnormality. Electronically authenticated by: BIBI RUSSELL Date: 2022-10-30 10:16 Normal [facility] ER URINE PROFILEon 2 Bilirubin Ql (U) Negative Normal NEGATIVE [facility] Comment on above: Performed By: #### P REGU, ERUR, UMICRO ####[facility] [id number] [place] [address]Dr. Geetha Díaz Clarity (U) CLEAR Normal CLEAR [facility] Comment on above: Performed By: #### P REGU, ERUR, UMICRO ####[facility] [address] [place] [address]Dr. Geetha Díaz Color (U) LT. YELLOW Normal YELLOW [facility] Comment on above: Performed By: #### P REGU, ERUR, UMICRO ####[facility] [address] [place] [address]Dr. Geetha ASHARFD A micrscopic examination will be performed if indicated. Normal [facility] Comment on above: Performed By: #### P REGU, ERUR, UMICRO ####[facility] [address] [place] [address]Dr. Geetha Díaz Glucose Ql (U) Negative Normal NEGATIVE [facility] Comment on above: Performed By: #### P REGU, ERUR, UMICRO ####[facility] [address] [place] [address]Dr. Geetha Díaz Hemoglobin Ql (U) Negative Normal NEGATIVE [facility] Comment on above: Performed By: #### P REGU, ERUR, UMICRO ####[facility] [address] [place] [address]Dr. Geetha Díaz Ketones Ql (U) Negative Normal NEGATIVE [facility] Comment on above: Performed By: #### P REGU, ERUR, UMICRO ####[facility] [address] [place] [address]Dr. Geetha Díaz LEUKOCYTES TRACE Abnormal NEGATIVE [facility] Comment on above: Performed By: #### P REGU, ERUR, UMICRO ####[facility] [address] [place] [address]Dr. Geetha Díaz Nitrite Ql (U) Negative Normal NEGATIVE [facility] Comment on above: Performed By: #### P REGU, ERUR, UMICRO ####[facility] [address] [place] [address]Dr. Geetha Díaz pH (U) 6.5 [pH] Normal 5-9 [facility] Comment on above: Performed By: #### P REGU, ERUR, UMICRO ####[facility] [address] [place] [address]Dr. Geetha Díaz SPEC GRAVITY 1.015 Normal 1.005-<=1.[address] [place] [address] Comment on above: Performed By: #### P REGU, ERUR, UMICRO ####[facility] [address] [place] [address]Dr. Geetha Díaz UA PROTEIN Negative Normal NEGATIVE/ TRACE [facility] Comment on above: Performed By: #### P REGU, ERUR, UMICRO ####[facility] [address] [place] [address]Dr. Geetha Díaz UR MICRO IND INDICATED Normal [facility] Comment on above: Performed By: #### P REGU, ERUR, UMICRO ####[facility] [id number] [place] [address]Dr. Geetha Díaz Urobilinogen Qn (U) 0.2 {Prerna'U}/dL Normal 0.2 - 1. 0 [facility] Comment on above: Performed By: #### P REGU, ERUR, UMICRO ####[facility] [address] [place] [address]Dr. Geetha Díaz URon 06-16-2022 , QUAL Negative Normal NEGATIVE [facility] Comment on above: Performed By: #### P REGU ERUR UMICRO #### [facility] [address] [place], [place] [address] Dr. Geetha Díaz URINE MICROSCOPIC ONLYon BACTERIA TRACE Abnormal NONE SEEN [facility] Comment on above: Performed By: #### P REGU, ERUR, UMICRO ####[facility] [address] [place] [address]Dr. Geetha Díaz Bacteria identified Cx Nom (U) NOT INDICATED Normal [facility] Comment on above: Performed By: #### P REGU ERUR, UMICRO ####[facility] [address] [place] [address]DrArgenis Díaz CAST NONE SEEN Normal NONE SEEN [facility] Comment on above: Performed By: #### P REGU ERUR, UMICRO ####[facility] [address] [place] [address]DrArgenis Díaz Crystals LM Nom (Urine sed) NONE SEEN Normal NONE SEEN [facility] Comment on above: Performed By: #### P REGU ERUR, UMICRO ####[facility] [address] [place] [address]Dr. Geetha Díaz Epithelial cells LM Ql (Urine sed) FEW Abnormal NONE SEEN /RARE [facility] Comment on above: Performed By: #### P REGU, ERUR, UMICRO ####[facility] [address] [place] [address]DrArgenis Díaz MUCOUS NONE SEEN Normal NONE SEEN [facility] Comment on above: Performed By: #### P REGU, ERUR, UMICRO ####[facility] [address] [place] [address]DrArgenis Díaz RBC 2-5 Abnormal 0-2 [facility] Comment on above: Performed By: #### P REGU, ERUR, UMICRO ####[facility] [address] [place] [address]Dr. Geetha Díaz WBC 2-5 Abnormal NONE SEEN [facility] Comment on above: Performed By: #### P CHELSEA BRAR UMICRO ####[facility] [address] [place], [place] [address]Nh. Geetha Díaz XR RIBS RT PA Bhavana 2 XR RIBS RT PA CH EXAMINATION: XR RIBS RT PA CH REASON FOR EXAM: Pain. COMPARISON: 01/07/2022. TECHNIQUE: 4 views. FINDINGS: Lungs are clear. Cardiomediastinal shadows are normal. No pneumothorax or effusion. No right-sided rib fracture. IMPRESSION: Negative x-rays of the chest and right ribs. Electronically authenticated by: SIMIN RICO Date: 2022-06-16 18:42 Normal [facility] Coding Summary.on 02-10-2022 Coding Summary. CD:[id number] Gh0bWw+PGhlYWQ+PE1FV SXuV38qnBYszH0LK9rYG D0QDVYFSVNLXC7TYF4un OE9AWieQ7KdlxNd OyvzbTKjVL50DXj4JNV0 rFnsWSykmX4blAOkN8n5 LxKmIP82sB29HGcmLQIq ShK6KiKuzubyeASy N2ovCuEqoFTbOph+PHRh YmxlIHdpZHRoPScxMDAl WpLwfMmcMS1kLm4qYBJt LWNvbGxhcHNlOiBj v5tdEMNsIWnwLR5rqKds C5LxlBJ3KQXao9k8Av28 dHI+HWFgMYJ1pErwBJdw v682LyIbm2tfSJV8 oSLgIKkwDRE6K42mr9U8 GGPrYTTkBUV1vNY7eR7f qXuhanluL9IihPRqGaJ8 MLV0lRFqoT7ghKqi hzuutE1yRka+Y91RLI9W PECTIZ9WNlb6I5DqSmoa dHI+TR31GHXrKL93uCTf mVMgn8lywSe3LuYq QRInAMC6rUfwEAzrj4Jb TQFqS75tqLFap8H6KFXr xAnwrMDeCjRnbHT5lK3t JJqgnbxsy3inyuhv Vcubz8uvbf81cC91E83d QCpqVFKbMVP0EZUnGWQt qWtfsw7dhI3xCt0+IDxj b9yxk3vndUf7XcHa JBHruoBjzUgqUJM1l3Tj No79O4FdrOgnw7AnCjn5 hh13pORdv1D5xDE5VSmg HBIlbY9mDGudRyI7 KWMfGnTdhA33mMMtLJan Fc4pfGsmbQesBL0bVMOi ihulTHQkmM6fXOHjmPRu mZzhFX9zUZBhxklh t258IwZvEGU9TSXxqJBs C7OsuG1gVdCjLONsZWRr D3VyaKDvATvsK088SBus RaP9JSRqzmHyI9Go INZboZqxAuO2u1J0Sc4L t4BganncEHG3BTjrPKU7 WzS6LyYoWbJ3K0ZyYei7 YCPcoBwlDO1kO5Zj PYRbfokputpaaQO5DJRt NSNukX66gHAwNTtnMw9z u4A7d403BPRyMTZgtE39 Bz9hiKelIERfpYYH lK3chxopy5wdbqizKzHj ICNtYPa9HSw0UTLzjFbm NxFmBTD0DuZ2WFR5vJOh bK1xzGgqehbhxM2b Oyc+B40ocS0cQBM7ICW6 vztkLFDlmwGkRK08GP32 T7NkUbeldBSvnIR+PGRp gqOaqWnuAI1eGsHw i3jsn5BpXFwzA2AeCSLf QPgkQvj9VRRyXXA5pLN2 qW4mZMIdMKfvj7K3hTD8 H1PfzbFkyw0zp4ys SJJxWYrpD62wvVSho0Z3 NGXuzYW4SLWzuNlkToWt tG33Bcg+XGJxgEbsb3Kk Btfzl4noz5zjlIj2 IjMwJSIgdmFsaWduPSJ0 n3XuHp13V30iEMwwZAQy PFIkRGAnGGZpuNmuqz6v nQ3uHy9+PGNvbCB3 uWW7tB2sMINnCbL6FXai P766BcOwgAIaYyeob8pc w3mreJn5JhTrJMUxpzNy tKteKFP6s1IpAo12 M47pXArcNHKdHTAaEMGf RYQrpOqaie8cgA1nVz1+ YU9vf9vmdc15oE95bYS+ ITKzYUB1nBdqHQnx IKNpsJ0fPTtvZiC0ILYq SnEzzQ80bIEeORacPh2w oOamlLznUB4vANWkkkiv m968PeUax8yqWYAk kVXhVImjTKY5M85dn2Z0 PZFiLGBsGZX7wWE9nM9s bGlnbjogbGVmdDsgdmVy pXmxCIrgJGldH529 IHRvcDsnPlBhdGllbnQg HfPbEYg9P4VrYdw6ARIe nXhtUV7xxVRqOElvYr2m lLjhuBraFV6aDPKt xvaqo935FjRmb8wmXOBg dOGyBBelKBO5Z60mp8C0 YYKyPJOrAVO3yEB1uO9t bGlnbjogbGVmdDsg imLwjFsiTKxaFTqaF160 IHRvcDsnPkJpcnRoIERh eAB9QB98QH97uUHfd8P4 kSY1D4NnQKTslgda nnyqdEG1BTTkZZPkhM44 Az5chMhqUk1pWFQxKAD5 CGGjwTVdO4GwjQ8tNgLb AWUuMBDuD7JzyMCu DSyiG807AGktXbO1JAXx iaIpB7EmOHBvlDhoDuE0 o4B6Hm7LB5C4TQ94ZH55 gZBtu3Q4vYA7N5Gw JVRotablmbpcyZH6HJFh ZPDvhK73Dc7yzDjaLu7j FYUsTYO2UPNktPThH4Xa bW2dZnAlOVLsZLQs W0SfwSUbEDzsI545BFfy VgT8VDNpwrCqR5JsKOZf sQsbKsW9k4H1Oc2USSi1 ZT37OG69tTXmc0O5 xQR2P7VeAKEcyhracohg lGM1QJTwXKXzqC12Zu4d kTbgYh7aTVVdFBP0WZZn xNJbO1IujP4pHaRx LFIiKHIcC8RziIQkYKkl G745AQtxPtJ6HFTwdrJb F4KsRHOgfLymWoI3k7U6 Hi1PRQOrKF62GCO8 wFA6XU49BZ92U4NuSyfo dGFibGU+PHRhYmxlIHdp ZHRoPScxMDAlJyBzdHls PR0uKl4vZQUzRXAm hObijNBsVeQkh7dzWQDr QMtjBZ5bsRppZ4KpbNI8 GELtl0b2Cx21F47fZ7Fb dXA+IHRloCB2nPU7 eU2fDlQkKsR7IQuzJ577 NvYqbZQhBhsdz9edj2ul aYl1OpM6DWGfgkJofEce TIN7p1RjPq50D90o IHdpZHRoPSIxNSUiIHZh yBiglw2qyF6zNi9+PGNv wBR5pSX9jT1rEtHmJeU8 XUpuU269CnUsaYHw Rifka3skx9wuqSj0QtDr XASgzgNroGepDZM2a6Dn Hc88E7QosRbwa1ScOsq5 sb33qBRqp3C2fOR9 A5SzIAIpvhbjhJRnyVkk UH5kIEJmgjmcOEJgyS8e WQXkA1o2RgJbThF7ONtu D9UyrxG7OTHioMSq NVlyXMJ2M51zc7U1DMAh DLBuGHH1dRH3lR7rfIhe bjogbGVmdDsgdmVydGlj JUnrAUjfR913KSIy fMtvBKZosP0dVUPynOSe qLsmMD0dLGPwidmnEsPC B9MFGdomKSbDVIcGUY29 H7EwHik6SZQosMvc JY7qjYMdHCtaXv0xfMtf yJslIE4iBPCgvrgvSJNn hE4oYIMjmAQclLoiRN3h ETDoeuonl705ZfMw EBK1FOFrgNRzW3SjiH5p QiUoCPTxRUQdP2XhvLPi GLieC252TCuvSuI3YVSj rrQiM3BkJTUgvLyx ScV5y9U1Bf8wXO7uPB8g KCGiCO24ZK18rVLvx0Q5 pRF0N5TsVSNthesyashd xYG3PTTiTYChaQ34 jCNmYXkgMe2ll2D3k205 SJMxQXYksC62Ju5jqUbv RVQrsKEPhF1pcynme6tp cjogIzAwMDAwMDt0 WUv6RFBplRfbIrTiHJA5 QgS3WSB2yHApeP2ypYqo laoqzR2gFju+MjAgWWVh kzG9V3WlXsp6YDWf cQffZS0cuOGwJUfmOo0x uGfsrVhpSX9vLTWsdwap VOVnoQ1tLPUtnEIvoAvy GR5sINOurulwx650 XjDaRLW3JJUzkQJfU4Iu jI4cChYeYDErSELeA6Kn eCQfVDrwP530CXvkGnI7 NNFmpbGsD8EkWFJs zYoiUmA7i5N0Uq7TDI2x nIZ7W0EuQeb9NTPfmBew NL3xfQUsCLnfRm6wnBwy pWnvSP9fWFApipbq POJsiF0cWMTfbFMofUwh MO9mVZQkytfpu006AxGg YPD2MDHiySJhL9IckB6v TbQePVIpECHgJ1Fo pOZcKHwoB466LWsmGyZ3 MSKxcqSwY8OmEESxdAsb KnI3r5S5Up0UwNIrOPAu XH23WN78IA12Y0Ue PjwvdGFibGU+PHRhYmxl IHdpZHRoPScxMDAlJyBz eJltWO7lSg0rZSXaAQBe bKmclVUyTxItl4gs XFItQMphUX4jwJurA8Pb kWF7PYVsg6l6Jw96C47c R1UxfZX+LNKsqKK2oKQ5 wC3sCwRjPuB9PBsj R899MvTudXWrWwyzk9rk a0ieiLv6YdZtZKFnfpZm uPflLUI9n7XrEi37B83z IHdpZHRoPSIyMCUi VNOzyFrygs9cuY9fKd2+ PBClpCV5jPR9uI9pTjFe HmW0VFbjA111AuDziSSe JvwjE40eJ7XbhXD+ PFLtTkb1DWYtaXugUI8y aXIbIZahPe9vLJL8TsIs ElOhAJqaF4KoYRZantpb cxhxyKB0KZWuJDWh eY16Kp6koByvMf1uXYCs DUR4BCUteMWiK6ShxY1f NyDbADBeYUNkX7IuxZWq LMgqW593BOuxUyB6 QGTlxxFbQ7PfUBBtqAol KtH7q4N7Xo4QrBxzgHFs PW3fWfQaNHg7S3EpUdt1 NHMweDbbEL7jqGBg QCjjQe0fyUhulPdnOO5x CAPolnwew955JfVvr9yg HMSanZJzITwdYOF3V50q p6Q5EOUoWQAjYFN3 dUF3fW6lhLxwjvgdcFLf dDsgdmVydGljYWwtYWxp G478TJEnwJmtIlJFXas4 G4DmZyw1MMNfhYlv UO4flBEiRUqzTz1jnIwk bKhlFU9wSFXgtuojz904 ZuBll8kvYQFzdGSfAMxv ESU1L54fb3V2JSIw YYEfOEK6nCC4fS4tnFkl bjogbGVmdDsgdmVydGlj RFqaUFmlZ110VUVheRpf Gr4LXpt4K9TwHtz7 BRKmyKpdFO1uqZNhMAzy Nq5diGvjjBmbKY0oXTTy ooexb129FzKcu5jfBHUn xVRvWAsfWWB0H74y f0I4SMAnJSDbXOK5dZZ3 jQ0rfIcidzwhjSQhnNxb lsKuqPcdFVspHQbpE524 IHRvcDsnPlBheWVy OjwvdGQ+KF48so85J7Zo CnegZjv0FTVeKUU8tHS1 cV6oPPFrIHynp5P2lEU8 P3FloqGqcy3or5lf YXBz (more content not included)... [facility] Physician Orderon 02-10-2022 Physician Order [id number] #1.00CD:127 [facility] Consent for Treatmenton 01-16 Consent for Treatment [id number] #1.00CD:127 [facility] Physician Orderon 02-04-2022 Physician Order [id number] #1.00CD:127 [facility] Coding Summary.on 01-15-2022 Coding Summary. CD:[id number] Gh0bWw+PGhlYWQ+PE1FV DTiR59wyQGytW5LZ3lPJ O6CWUVBAMMATC5ASO8kp LL9QOtsE3QvsrUa BdkubTVwFX48BSf7RGY4 lRrnGYnczX7bhBGvO4q4 HlMoCI07kR49KGjwTMOg UeN3CzNzkntwvUGn R5gwGeWutODlJiu+PHRh YmxlIHdpZHRoPScxMDAl QqKwiKytFL7uNh7iOQIs LWNvbGxhcHNlOiBj u4noVETyDLtrMH1caUsw X4XpgTF2EOIxl0i5Ii06 dHI+TDQkMDU8iKorOQoe a453ZnZac3vbMMR4 qIFsVJhpCKK4G85qr4T2 KWJaSKEgOAZ2hSI3kS7v cLjroojdR0FcuHQfAxI9 BSY3eAQxuO1gjCzw fsbuiG2fGcs+F29KGX9L ZZFLLA8VEbs4W8IcOzzn dHI+PT15HWVfWO70bWMf xCMwe1rcwHb7DqCx UJFqYAE0yIooGRnei0Zv AMXsL66srUUhi0F4GHQr gFlptBOmUgGbnWW3uX7k OSjvrsqbv6xfsfaq Vrtmq5lbog09yF61F85j UKmhDPUdLQU3LDKuIZUo hHnssg3pvW3pLk1+IDxj d9afy3ftwIh6IlMa YCRezuHxjEkgOPO9f3Yh Vr24S5PmaXtse5HoJzs3 aw29fCVhn7W3eCY4TTnt BYDadV9lTDqlTbE5 ZVIhTfVdoA33nFNpQXkx Ef0vaRvifKulEY1uUSIb qqpkJUGceN3oGYPamMSv uGvmTK1hOJTslonp a328OaNcMZF2PVFtlBMx L8OqeU7oUcVaVJVxYTVo A8UpsPFsLAknY713UPsh CoB5NLHissEuE1Qp EDWzbNxhNuV3p4L5Oc8A p3FivqzhCYF1EJkkDSK3 KeOrCjNdMoA8B6DtVsh7 CRQkcNawPW8jO1Ch HIMtkolcyaimhVG5JUYl WVEimS55hTQzSDglAc4w l5H3i433PMCaNQStmN61 Mf0xcWwmUGPawHKJ sE7nawlve7ulrzpjGePx OODwXTw4VDw6QKZqbPen RfHeHQW2ReY4NAO0mSXt aY9sfUnjfqeppH0b Oyc+G24vjQ8qUCT3QOQ3 ykfdVCXijaAcGN08YR56 Z2VrUzvyaPIzfXI+PGRp dzWtoBihUT8fOeGb s9lgs3PsSTrxA8JzCKSp YMzuXyk0ZXEjUSR0rGI2 sG4tMYWeUAvhr6L4fXP5 Q8OvukQjsy8qk8zv VLLjXXtxQ58vuPNdj0M8 HUJcxYY8XVRptTonZiHx lA40Ndo+OPAxaVwef9Ir Vupyd5fyv0nrdBs9 IjMwJSIgdmFsaWduPSJ0 m5JiFd08O96yBKrrWRGg ZBYlQVQhHELyeThxum2c jM1iUv1+PGNvbCB3 eTY0wG9dLVSkWhT1ZVpk V989PwQfvGHoEiplb6ra r6rkdXl5UuXeMZSiniRy hHliDNF1h9BvOc19 C02kGOwbTGBrKISbKAZj CADpbDbnfa1ynX2sTp5+ EO4mr6pzqk56aA47rLE+ PDYoJOF8oLplXWdh QTNedJ5nNBywWeN3DDOx SbSmxL86sMDuKIfkSz7w kDjdaMfmQK2yNLDzyhph m493McZje1duLUFj hIVaWTghPEE6E58hc1X2 HRYjYHNcDRZ4qEC4jQ0e bGlnbjogbGVmdDsgdmVy cBglBXwaSCcoU117 IHRvcDsnPlBhdGllbnQg LzMuZJh3K6VvQfr7GFZc uXtfQY1gaREpXKdhAv5b cYtsoZgjJM8rBSWm ulddy067HmUno6dyNSFm kLSkCAgzQWF6U98ud4V7 QWNzMLWoXRJ2xQH5cK0n bGlnbjogbGVmdDsg emAmyEajNRdfLEorB876 IHRvcDsnPkJpcnRoIERh cDF8MC00QQ17sGHac3J6 iHL8D7RvVCMvyecy vvfeaPW7TNXzDRBxdA59 Xy3yvTynEj6yVFZhSYT6 IQCdhPFxB5AdpM9bKuAr PTVfQLUcC5JafSAl JJaeH268JZaaNlB9KCXw wtEyI2MsAXNyaGwmXzL1 o9W9Ll9RL8N3BO92RN80 sZQcg6R4uML0B7Hu EUQhhilqnylobFX4BAOl GQCzvB34Qc3dfDdmRa8f EXPeWTC3QYDwuVClI2Kk fY4pWlPwXULkQNGy W5EveFGgZQkeU963GThg HfX3NRLqvfSuD5NaLYQx lHlzJiO0i8W9Nm1YYYd5 HO16YU30rZLbj2M0 yMG0H0ZoWHJmghpzsdgj rEM7TPPoMDLcdG03Fu6t gSswTr4sFZViGJL1FGPp aSUgC3XnoV0cLePc IKNjMOWuL4WbjBDvCFbo N442AXkjLpZ2QIWgglSz U9KgNSJjcHzyVuK3c4C0 Wt3TGNRyYS89PSC9 uBS9SR70MW39Q8XjQkrh dGFibGU+PHRhYmxlIHdp ZHRoPScxMDAlJyBzdHls KV3gVc3mZCUyQMWp uMmspOXcLeBsa8oaIWXt UMrcZW0psApgS2JtmDO6 PJTgi8i9Tr42G48mI4Yu dXA+WYAppHI0tMS4 mD9sLuShYpK1NIjkS321 SeRcbIBnEjvrd7asr3wy pOt6NmF9OWLrtbGqsKwo DBT8m9FaZe51Y47s IHdpZHRoPSIxNSUiIHZh qPyoxy1upV4gUc7+PGNv iPN6mMQ6fV0lWzVfGwP2 QUibN242TbAjiZTq Whdqt2hqm3yldJy3MgGk KCYhcyDbbIhxLUB4r5Bb Of05E0GedQvjk7UhLuz7 sy29lAUij2A3eQC9 G5ByVLEqzrguiCNhtDzw YA7vRQCbwwyhWHOlzQ4j FJEkR3i9KvWeEoA7OArv S8DikbZ8ZTNifGJw EGtyJQT5F82yk8O5VKLo SSYqINI2jGW5eW3brZpv bjogbGVmdDsgdmVydGlj ZWlpNKieZ086OXLr nFmmGKGysL6mGWDdaVZg zTlwRE2nEXGinasqFyST A6NZFzrtDTrHDZnXKB94 P1JfLhq6YFBbiPwo QN1pcTAsTDizMy5vtGbr zUmjIX6bETAgoewkLDCj sC3eXCLrfAEnqNkmJQ6c BAKwmuqne499KoWi MHV7ZGTmbZBwY6YsiA3l MmFxXCPjJSMgZ1SyjIOt UQwrR102NOhkXzY1LGQl xlZsH4SrUKBzgOkj AsH3f3H1Gj8qFB7wTC9d OTDwLE86MU54rAWvg6M7 mZD3M5CcORPkrxdxuusn cXA3HVXfQPYcmS95 vCWxICsvZj9ta2W7f362 CVZrPGJkcB06Kc2lpJyi LLWvcEBAsM1xjstkq8tu cjogIzAwMDAwMDt0 RGv0ZQZtxJraQoMmWDM0 IwP8FDH4wDFdlG3hwAcq qxsniM9kXxx+MjAgWWVh vjU7T4ZcZkr1DLAc sTpyFN5ltOGiTYmoTq9q dMfrjLopBW5oDIUiljxc PTKmkG7wQCDzvSSukIri JI0bEFEwayucl449 QkVhTPM5GWQyyVZyE0La vL2fCeOeYBKrTCInV1Yh tZIkQZucH970PElqHfR4 RHLlbrLeA5NoSZCd cQxsMqO8f7V4Fv3IJY2o aBX8X0DnVis5PDAmoSfd YT7szILjIDgnIc7rxDte dElbHY6oWDApvhgp UIIjdS2lSDSrhXOhkRum UR7sAZQdlzaqa169GoNd LYR1XMJldYQpI6DipB1k UoZsQPJkNNFbM4Ap xDNwHGgwB422YQviMnB5 UMRdybMkV1DvYHXemDtj ElG9d1T9Di6VCRFxCMXn mPLhDcW4E3ApDkrq dHI+JC82GFPoBY62rNJp jXQjx6kycLe5RrMnSKLh KLA6mGkmUBznp9UiQYWd I54qvQLnu8T6DTFk sLnqaBNiVkImuLK5yQ2x GSbfrxyzw1bmhfjcSvvq x3ftuz63eZ23F34yYMvi ZHRoPSIzMCUiIHZh mYrfbt2jxM5jJb7+PGNv bFY8oUA6sW4gJpHxQeB5 JJrsR748PnLruEVkEspa i4xfk1wojEg2RhIm LHHoflFxlWetDEV9y9Zh Me57W46rXUdeSMGcOGAn LAJsWWRzwNsxjp0uzB9w Ii8+AP7la7fhsc55 tK20dVB+CKIxSDP2fNzs GCslEVNhvI4jGOszRgK6 FQJbFhLygA11bKWbUYat Tt1hbEywnBigLV0c MZXjunzam172ZoXol7qm AQFxwCJqPWudWIR7E78v g5F1UWErFJCxZSS2pKG2 gF9axDbjqztjnLXx dDsgdmVydGljYWwtYWxp D592KMWqqArnEqIxoAJk Y5hrsdMVTV0eYueawDL+ ICCuPQE8wCymWJai DOSttQ4yJJApA0w1QqTb PeN0CGtyO2QizaN8RNPb gKRoIAPyxHXAoM0lmffq r7ztldkkRgZcRJAz XNv6WTa4RDUufXtfAxZw XFX3HpN8TTY8pRSzeU4h kOoglemyzV8tYom+RklO OjwvdGQ+PHRkIHN0 qOfsOLijILVwwL1kHWVf U7t9AkReVrJ0ICfyE5Wa eqB4JFVdfQDzGSCvfTAR rB8gbkzsi6nknpvw AtVeCOWqYNi2MLa6UFAp yPawZhQoTAG6XdI2UAC3 tFJutC3qxQkirxnvnY2v Oyc+TVJOOjwvdGQ+ XTIzVMD0qDxyTQuvBNCr nP7vBWObQ0i8DjXoCwV8 TJztO0JwcqR8ESZieNOg RCRceUWKeZ9wwohp n5cqhjinSjIiFXDkPIb3 RCm3LPJbdLnqGgGaRSB2 CtH5USD9vFHkvQ0llQkl pwgqmS2rVhc+UGF5 YDI7ON65LJ19I5PuButa dGFibGU+PHRhYmxlIHdp ZHRoPScxMDAlJyBzdHls CV4lDr6hOJNlLHQj [facility] (more content not included)... Normal [facility] NuSwab Vaginitis Plus (VG+)o n 01-09-2022 A. vaginae DNA CYNDEE+probe Ql (Vag fld) Low - 0 Invalid Interpretation Code [facility] Comment on above: Performed By: #### 1 [id number] #### [facility] [address] [place] [address] Bacterial vaginosis associated bacterium 2 DNA CYNDEE+probe Ql (Vag fld) Low - 0 Invalid Interpretation Code [facility] Comment on above: Performed By: #### 1 [id number] #### [facility] [address] [place] [address] C. albicans DNA CYNDEE+probe Ql (Vag fld) Negative Invalid Interpretation Code Negative [facility] Comment on above: Result Comment: This test was developed and its performance characteristics determined by [facility]. It has not been cleared or approved by the Food and Drug Administration. Performed By: #### 1 [id number] #### [facility] [address] [place] [address] C. glabrata DNA CYNDEE+probe Ql (Vag fld) Negative Invalid Interpretation Code Negative [facility] Comment on above: Result Comment: This test was developed and its performance characteristics determined by [facility]. It has not been cleared or approved by the Food and Drug Administration. Performed By: #### 1 [id number] #### [facility] [address] [place] [address] C. trachomatis DNA CYNDEE+probe Ql (Vag fld) Positive Abnormal Negative [facility] Comment on above: Performed By: #### 1 [id number] #### [facility] [address] [place] [address] Megasphaera sp type 1 DNA CYNDEE+probe Ql (Vag fld) Low - 0 Invalid Interpretation Code [facility] Comment on above: Result Comment: Calc ulate [...] and Drug Administration. Performed By: #### 1 [id number] #### [facility] [address] [place] [address] N. gonorrhoeae DNA CYNDEE+probe Ql (Vag fld) Negative Invalid Interpretation Code Negative [facility] Comment on above: Result Comment: Perf ormed at: =G [facility] [address] [place], [place] [id number] MD Kortney Rodrigues Performed By: #### 1 [id number] #### [facility] [address] [place] [address] T. vaginalis DNA CYNDEE+probe Ql (Vag fld) Negative Invalid Interpretation Code Negative [facility] Comment on above: Performed By: #### 1 [id number] #### [facility] [address] [place] [address] CBC AUTO DIFFon 01-07-2022 BASO # 0.1 103/ul Normal 0.0-0.1 [facility] Comment on above: Performed By: #### C BC #### [facility] [address] [place] [address] Dr. Geetha Díaz Basophils/100 WBC (Bld) 1.3 % Normal 0.2-2.0 [facility] Comment on above: Performed By: #### C BC #### [facility] [address] [place] [address] Dr. Geetha Díaz EO # 0.1 103/ul Normal 0.0-0.7 [facility] Comment on above: Performed By: #### C BC #### [facility] [address] [place] [address] Dr. Geetha Díaz Eosinophils/100 WBC (Bld) 2.9 % Normal 0.9-7.0 [facility] Comment on above: Performed By: #### C BC #### [facility] [address] [place] [address] Dr. Geetha Díaz Erythrocyte distribution width (RBC) [Ratio] 12.2 % Normal 11.0-15.0 [facility] Comment on above: Performed By: #### C BC #### [facility] [address] [place] [address] Dr. Geetha Díaz Hematocrit (Bld) [Volume fraction] 39.2 % Normal 36.0-48.0 [facility] Comment on above: Performed By: #### C BC #### [facility] [address] [place] [address] Dr. Geetha Díaz Hemoglobin (Bld) [Mass/Vol] 12.8 g/dL Normal 12.0-16.0 [facility] Comment on above: Performed By: #### C BC #### [facility] [address] [place] [address] Dr. Geetha Díaz IG # 0.01 10e3/ul Normal 0.00-0.03 [facility] Comment on above: Performed By: #### C BC #### [facility] [address] [place] [address] Dr. Geetha Díaz IG % 0.2 % Normal 0.0-0.5 [facility] Comment on above: Performed By: #### C BC #### [facility] [address] [place] [address] Dr. Geetha Díaz LYMPH # 1.4 103/ul Normal 1.2-3.8 [facility] Comment on above: Performed By: #### C BC #### [facility] [address] [place] [address] Dr. Geetha Díaz Lymphocytes/100 WBC (Bld) 29.8 % Normal 20.5-60.0 [facility] Comment on above: Performed By: #### C BC #### [facility] [address] [place] [address] Dr. Geetha Díaz MANUAL DIFF REQ NO Normal [facility] Comment on above: Performed By: #### C BC #### [facility] [address] [place] [address] Dr. Geetha Díaz MCH (RBC) [Entitic mass] 29.1 pg Normal 26.7-34.0 [facility] Comment on above: Performed By: #### C BC #### [facility] [address] [place] [address] Dr. Geetha Díaz MCHC (RBC) [Mass/Vol] 32.7 g/dL Normal 29.9-35.2 [facility] Comment on above: Performed By: #### C BC #### [facility] [address] [place] [address] Dr. Geetha Díaz MCV (RBC) [Entitic vol] 89.1 fL Normal 81.0-99.0 [facility] Comment on above: Performed By: #### C BC #### [facility] [address] [place] [address] Dr. Geetha Díaz MONO # 0.4 103/ul Normal 0.3-0.8 [facility] Comment on above: Performed By: #### C BC #### [facility] [address] [place] [address] Dr. Geetha Díaz Monocytes/100 WBC (Bld) 7.7 % Normal 1.7-12.0 [facility] Comment on above: Performed By: #### C BC #### [facility] [address] [place] [address] Dr. Geetha Díaz NEUT # 2.6 103/ul Normal 1.4-6.5 [facility] Comment on above: Performed By: #### C BC #### [facility] [address] [place] [address] Dr. Geetha Díaz Neutrophils/100 WBC (Bld) 58.1 % Normal 43.0-75.0 [facility] Comment on above: Performed By: #### C BC #### [facility] [address] [place] [address] Dr. Geetha Díaz Platelet mean volume (Bld) [Entitic vol] 9.1 fL Critically low 9.5-13.5 [facility] Comment on above: Performed By: #### C BC #### [facility] [address] [place] [address] Dr. Geetha Díaz PLT 278 103/ul Normal 150-450 [facility] Comment on above: Performed By: #### C BC #### [facility] [address] [place] [address] Dr. Geetha Díaz RBC 4.40 106/ul Normal 4.20-5.40 [facility] Comment on above: Performed By: #### C BC #### [facility] [address] [place] [address] Dr. Geetha Díaz WBC 4.5 103/ul Normal 4.0-11.0 [facility] Comment on above: Performed By: #### C BC #### [facility] [address] [place] [address] Dr. Geetha Díaz IRON AND TIBCon 01-07-2022 % SATURATION 27.2 % Normal [facility] Comment on above: Performed By: #### F ETIBC, VITB12, VITAD #### [facility] [address] [place] [address] Dr. Geetha Díaz Iron [Mass/Vol] 86.0 ug/dL Normal 50.0-170.0 [facility] Comment on above: Performed By: #### F ETIBC, VITB12, VITAD #### [facility] [address] [place] [address] Dr. Geetha Díaz TIBC DIRECT 316.0 ug/dL Normal 250.0-450.0 [facility] Comment on above: Performed By: #### F ETIBC, VITB12, VITAD #### [facility] [address] [place] [address] Dr. Geetha Díaz PROF 14(COMP METB)on 022 Albumin [Mass/Vol] 4.1 g/dL Normal 3.4-5.0 [facility] Comment on above: Performed By: #### C MP #### [facility] [address] [place] [address] Dr. Geetha Díaz Albumin/Globulin [Mass ratio] 1.1 {ratio} Normal [facility] Comment on above: Performed By: #### C MP #### [facility] [address] [place] [address] Dr. Geetha Díaz ALP [Catalytic activity/Vol] 53 U/L Normal 46-116 [facility] Comment on above: Performed By: #### C MP #### [facility] [address] [place] [address] Dr. Geetha Díaz ALT [Catalytic activity/Vol] 15 U/L Normal 14-59 [facility] Comment on above: Performed By: #### C MP #### [facility] [address] [place] [address] Dr. Geetha Díaz Anion gap [Moles/Vol] 13.2 mmol/L Normal [facility] Comment on above: Performed By: #### C MP #### [facility] [address] [place] [address] Dr. Geetha Díaz AST [Catalytic activity/Vol] 15 U/L Normal 15-37 [facility] Comment on above: Performed By: #### C MP #### [facility] [address] [place] [address] Dr. Geetha Daíz Bilirubin [Mass/Vol] 0.5 mg/dL Normal 0.2-1.0 [facility] Comment on above: Performed By: #### C MP #### [facility] [address] [place] [address] Dr. Geetha Díaz Calcium [Mass/Vol] 9.2 mg/dL Normal 8.5-10.1 [facility] Comment on above: Performed By: #### C MP #### [facility] [address] [place] [address] Dr. Geetha Díaz Chloride [Moles/Vol] 103 mmol/L Normal 98-107 [facility] Comment on above: Performed By: #### C MP #### [facility] [address] [place] [address] Dr. Geetha Díaz CO2 [Moles/Vol] 27.9 mmol/L Normal 21.0-32.0 [facility] Comment on above: Performed By: #### C MP #### [facility] [address] [place] [address] Dr. Geetha Díaz Creatinine [Mass/Vol] 0.78 mg/dL Normal 0.55-1.02 [facility] Comment on above: Performed By: #### C MP #### [facility] [address] [address] [address] Geetha Díaz EGFR-AF CYMRO >60 Normal >=60 [facility] Comment on above: Performed By: #### C MP #### [facility] [address] [address] [address] Geetha Díaz EGFR-NON AF CYMRO >60 Normal >=60 [facility] Comment on above: Performed By: #### C MP #### [facility] [address] [address] [address] Geetha Díaz Globulin (S) [Mass/Vol] 3.6 g/dL Normal [facility] Comment on above: Performed By: #### C MP #### [facility] [address] [place] [address] Dr. Geetha Díaz Glucose [Mass/Vol] 103 mg/dL Normal 74-106 [facility] Comment on above: Performed By: #### C MP #### [facility] [address] [address] [address] Geetha Díaz Potassium [Moles/Vol] 4.1 mmol/L Normal 3.5-5.1 [facility] Comment on above: Performed By: #### C MP #### [facility] [address] [address] [address] Geetha Díaz Protein [Mass/Vol] 7.7 g/dL Normal 6.4-8.2 [facility] Comment on above: Performed By: #### C MP #### [facility] [address] [address] [address] Geetha Díaz Sodium [Moles/Vol] 140 mmol/L Normal 136-145 [facility] Comment on above: Performed By: #### C MP #### [facility] [address] [address] [address] Geetha Díaz Urea nitrogen [Mass/Vol] 14.0 mg/dL Normal 7.0-18.0 [facility] Comment on above: Performed By: #### C MP #### [facility] [address] [place] [address] Dr. Geetha Díaz Urea nitrogen/Creatinine [Mass ratio] 17.9 mg/mg Normal [facility] Comment on above: Performed By: #### C MP #### [facility] [address] [place] [address] Dr. Geetha Díaz VITAMIN B12on 01-07-2022 Cobalamin (Vitamin B12) [Mass/Vol] 613.0 pg/mL Normal 193.0-986.0 [facility] Comment on above: Performed By: #### F ETIBC, VITB12, VITAD #### [facility] [address] [place] [address] Dr. Geetha Díaz VITAMIN D 25 OHon 01-07-2022 VIT D 25-OH 16.3 ng/mL Normal [facility] Comment on above: Performed By: #### F ETIBC, VITB12, VITAD #### [facility] [address] [place] [address] Dr. Geetha Díaz VIT D RANGES SEE BELOW Normal [facility] Comment on above: Result Comment: <20 ng/mL Vit D deficient 20 - <30 ng/mL Vit D insufficient 30 - 100 ng/mL Vit D sufficient >100 ng/mL Potential Toxicity Performed By: #### F ETIBC, VITB12, VITAD #### [facility] [address] [place] [address] Dr. Geetha Díaz XR CHEST 2 Von [...] by: MATEUS PETIT Date: 2022-01-07 17:49 Normal [facility] Physician Orderon 01-06-2022 Physician Order [id number] 3#[id number]:127 Normal [facility] Test, Urineon 08-18 Beta HCG ( test) Ql (U) Negative [employer] Other Urinalysis - AUTOMATEDon Appearance (U) clear [facility] Other Bilirubin Ql (U) Negative [employer] Other Color (U) dark yellow [employer] Other Glucose Ql (U) Negative [facility] Other Hemoglobin Ql (U) Negative [employer] Other Ketones Ql (U) 15 BRIKA Other Leukocyte esterase Test strip Ql (U) Negative [employer] Other Nitrite Ql (U) Negative [facility]RIKA Other pH (U) 7.0 [pH] [employer] Other Protein Ql (U) Negative [employer] Other Specific gravity (U) [Rel density] >1.030 [employer] Other Urobilinogen (U) [Mass/Vol] 0.2 mg/dL [employer] Other Urinalysis - AUTOMATED No rt [employer] Other Vital Signs Date Time Vital Sign Value Performing Clinician Facility 12-07-2024 16:46-0400 Body mass index (BMI) [Ratio] 18.18 kg/m2 Lynda Velasco NP Work Phone: [facility] 12-07-2024 16:46-0400 Body weight 40.82 kg Lynda Velasco NP Work Phone: [facility] [employer] 12-07-2024 16:46-0400 Diastolic blood pressure 60 mm[Hg] Lynda Velasco NP Work Phone: [facility] 12-07-2024 16:46-0400 Systolic blood pressure 90 mm[Hg] Lynda Krista MAGUIRE Work Phone: [facility] 11-01-2024 11:40-0400 Body mass index (BMI) [Ratio] 18.95 kg/m2 Hermelindo Yoselin DO Work Phone: [facility] 11-01-2024 11:40-0400 Body weight 42.55 kg Hermelindo Yoselin DO Work Phone: [facility] 11-01-2024 11:40-0400 Diastolic blood pressure 68 mm[Hg] Hermelindo Yoselin DO Work Phone: [facility] 11-01-2024 11:40-0400 Systolic blood pressure 104 mm[Hg] Hermelindo Yoselin DO Work Phone: [facility] 10-11-2024 08:50-0500 Body mass index (BMI) [Ratio] 19.35 kg/m2 Hermelindo Yoselin DO Work Phone: [facility] 10-11-2024 08:50-0500 Body weight 43.45 kg Hermelindo Yoselin DO Work Phone: [facility] 10-11-2024 08:50-0500 Diastolic blood pressure 72 mm[Hg] Hermelindo Yoselin DO Work Phone: [facility] 10-11-2024 08:50-0500 Systolic blood pressure 110 mm[Hg] Hermelindo Yoselin DO Work Phone: [facility] 09-13-2024 13:04-0500 Body height 149.9 cm Marcus Villanueva MD Work Phone: [facility] 09-13-2024 13:04-0500 Body mass index (BMI) [Ratio] 19.19 kg/m2 Marcus Villanueva MD Work Phone: [facility] 09-13-2024 13:04-0500 Body weight 43.09 kg Marcus Villanueva MD Work Phone: [facility] 09-13-2024 13:04-0500 Diastolic blood pressure 72 mm[Hg] Marcus Villanueva MD Work Phone: [facility] 09-13-2024 13:04-0500 Heart rate 68 /min Marcus Villanueva MD Work Phone: [facility] 09-13-2024 13:04-0500 SaO2% (BldA) [Mass fraction] 98 % Marcus Villanueva MD Work Phone: [facility] 09-13-2024 13:04-0500 Systolic blood pressure 102 mm[Hg] Marcus Villanueva MD Work Phone: [facility] 06-28-2024 13:50-0500 Body height 149.86 cm [facility] 06-28-2024 13:50-0500 Body mass index (BMI) [Ratio] 19.4 kg/m2 [facility] 06-28-2024 13:50-0500 Body temperature 96.4 [degF] [facility] 06-28-2024 13:50-0500 Body weight 43.65 kg [facility] 06-28-2024 13:50-0500 Diastolic blood pressure 74 mm[Hg] [facility] 06-28-2024 13:50-0500 Heart rate 74 /min [facility] 06-28-2024 13:50-0500 Respiratory rate 18 /min [facility] 06-28-2024 13:50-0500 SaO2% (BldA) [Mass fraction] 98 % [facility] 06-28-2024 13:50-0500 Systolic blood pressure 118 mm[Hg] [facility] 11-18-2022 15:10-0400 Body height 149.86 cm Marily Vega Other [facility] [employer] Other 11-18-2022 15:10-0400 Body mass index (BMI) [Ratio] 16.36 kg/m2 Marily Vega Other [employer] Other 11-18-2022 15:10-0400 Body temperature 98.2 [degF] Marily Vega Other [employer] Other 11-18-2022 15:10-0400 Body weight 36.74 kg Marily Vega Other [employer] Other 11-18-2022 15:10-0400 Respiratory rate 18 /min Marily Vega Other [employer] Other 11-18-2022 15:10-0400 SaO2% (BldA) [Mass fraction] 99 % Marily Vega Other [employer] Other 02-07-2022 15:00-0400 Body temperature 96.98 [degF] Ermelindabrian DUMONTMAN [facility] 02-07-2022 15:00-0400 Diastolic blood pressure 78 mm[Hg] Ermelinda GALEANO [facility] 02-07-2022 15:00-0400 Heart rate 89 /min Ermelinda GALEANO [facility] 02-07-2022 15:00-0400 Systolic blood pressure 110 mm[Hg] Ermelinda GALEANO [facility] 02-07-2022 12:19-0400 Blood Pressure Location Ermelinda GALEANO [facility] 02-07-2022 12:19-0400 Body temperature 97.88 [degF] Ermelinda GALEANO [facility] 02-07-2022 12:19-0400 Diastolic blood pressure 71 mm[Hg] Ermelinda GALEANO [facility] 02-07-2022 12:19-0400 Heart rate 92 /min Ermelinda GALEANO [facility] 02-07-2022 12:19-0400 Mean blood pressure 82 mm[Hg] Ermelinda GALEANO [facility] 02-07-2022 12:19-0400 Respiratory rate 16 /min Ermelinda GALEANO [facility] 02-07-2022 12:19-0400 SaO2% (BldA) [Mass fraction] 99 % Ermelinda GALEANO [facility] 02-07-2022 12:19-0400 Systolic blood pressure 104 mm[Hg] Ermelinda GALEANO [facility] 09-07-2021 14:35-0500 Body height 149.86 cm Niharika Annie Other [employer] Other 09-07-2021 14:35-0500 Body mass index (BMI) [Ratio] 16.36 kg/m2 Niharika Annie Other [employer] Other 09-07-2021 14:35-0500 Body temperature Niharika Annie Other [employer] Other 09-07-2021 14:35-0500 Body weight 36.74 kg Niharika Annie Other [employer] Other 09-07-2021 14:35-0500 Diastolic blood pressure 61 mm[Hg] Niharika Annie Other [employer] Other 09-07-2021 14:35-0500 Respiratory rate 18 /min Niharika Annie Other [employer] Other 09-07-2021 14:35-0500 SaO2% (BldA) [Mass fraction] 98 % Niharika Annie Other [employer] Other 09-07-2021 14:35-0500 Systolic blood pressure 99 mm[Hg] Niharika Valencia Other [employer] Other Encounters Encounter Date Encounter Type Care Provider Facility Start: 12-07-2024 End: 12-07-2024 Postop follow up visit related to original px Lynda Velasco ASSOCIATE PROFESSOR Work Phone: [facility] Comment on above: Post-operative state Start: 12-07-2024 End: 12-07-2024 ambulatory LYNDA KRISTA Not Available Start: 12-07-2024 End: 12-07-2024 Bamboo flowsheet Lynda Krista ASSOCIATE PROFESSOR Work Phone: [facility] Start: 12-07-2024 End: 12-07-2024 Bamboo flowsheet Lynda Velasco ASSOCIATE PROFESSOR Work Phone: [facility] Start: 11-25-2024 End: 11-25-2024 Clinisync Result Encounter Generic External Data Provider [facility] Unsolicited Start: 11-25-2024 End: 11-25-2024 Clinisync Result Encounter Generic External Data Provider [facility] External [facility] Unsolicited Start: 11-16-2024 End: 11-16-2024 Clinisync Result Encounter Generic External Data Provider [facility] Unsolicited Start: 11-16-2024 End: 11-16-2024 Clinisync Result Encounter Generic External Data Provider [facility] Unsolicited Start: 11-01-2024 End: 11-01-2024 Office outpatient visit 15 minutes Hermelindo Yoselin DO Work Phone: [facility] Comment on above: Pre-op examination; PCOS (polycystic ovarian syndrome); Pelvic pain in female; Mood disorder (CMS/HCC) Start: 11-01-2024 End: 11-01-2024 Preprocedural examination done Hermelindo Yoselin DO Work Phone: [facility] Start: 11-01-2024 End: 11-01-2024 ambulatory HERMELINDO YOSELIN [...] Start: 06-28-2024 End: 06-28-2024 Patient encounter procedure [facility] Work Phone: Start: 06-28-2024 End: 06-28-2024 ambulatory Cammy Allison [facility] Work Phone: Start: 03-23-2024 End: 03-23-2024 ambulatory ERMELINDA GALEANO Not Available Start: 01-04-2024 End: 01-04-2024 ambulatory MAIKOL METZ Not Available Start: 11-22-2022 End: 11-22-2022 ambulatory Marily Vega Other [employer] Other Start: 11-22-2022 Telephone encounter Marily Vega [facility] Start: 11-22-2022 End: 11-22-[address] MARCUS VILLANUEVA Facility: Start: 11-18-2022 End: 11-18-2022 Departed Referred [employer] [facility] Marily Vega Work Phone: [facility] [place] Work Phone: Start: 11-18-2022 End: 11-18-2022 ambulatory AMRIT Vega Work Phone: [facility] Work Phone: Start: 11-18-2022 Office outpatient vi sit 15 minutes Marily Vega [facility] Start: 10-30-2022 End: 10-31-[address] LEIDA ARNDT Facility:[facility] Start: 06-16-2022 End: 06-16-[address] MARCUS VILLANUEVA Facility:[facility] Start: 02-07-2022 End: 02-07-2022 Patient encounter procedure Ermelinda GALEANO [facility] Start: 01-07-2022 End: 01-08-[address] LEIDA ARNDT Facility:[facility] Start: 01-06-2022 End: 01-06-2022 Lab Drop off Ermelinda GALEANO [facility] Start: 12-31-2021 End: 12-31-[address] MARCUS VILLANUEVA Facility:[facility] Start: 09-07-2021 End: 09-07-2021 ambulatory Niharika Valencia Other [employer] Other Start: 09-07-2021 Office outpatient vi sit 15 minutes Niharika Valencia [facility] Procedures Date Procedure Procedure Detail Performing Clinician Start: 11-25-2024 ALL CBC WITH AUTO DIFF Hermelindo Yoselin DO Work Phone: Start: 11-16-2024 US PELVIS W/ TRANSVAGINAL Generic External Data Provider Start: 10-12-2024 ALL CBC WITH AUTO DIFF Hermelindo Yoselin DO Work Phone: Plan of Treatment Date Care Activity Detail Author Start: 04-17-2025 Influenza vaccination Influenz a Vaccine (Season Ended) [facility] Start: 12-26-2024 End: 12-26-2024 Patient encounter procedure 12/26/2024 2:20 PM EDT Office Visit [facility] [address] [place] [id number] Hermelindo Wyatt, DO [address] [place] [address] [facility] Start: 12-07-2024 End: 12-07-2024 Patient encounter procedure 12/07/2024 4:00 PM EDT Office Visit [facility] [address] [address] Lynda Velasco, ASSOCIATE PROFESSOR [address] [place] [id number] Arrived [facility] Comment on above: Arrived Start: 11-16-2024 End: 11-16-2024 Professional / ancillary services management 11/16/2024 9:00 AM EDT Ancillary Procedure [facility] [address] [place] [id number] [facility] Start: 11-01-2024 End: 11-01-2024 Patient encounter procedure 11/01/2024 11:40 AM EDT Consult [facility] [address] [place] [address] Hermelindo Wyatt, DO [address] [place] [address] [facility] Start: 10-11-2024 End: 10-11-2025 DHEA DHEA Lab Routine PCOS (polycystic ovarian syndrome) Expected: 10/11/2024 (Approximate), Expires: 10/11/2025 [facility] Comment on above: Expected: 10/11/2024 (Approximate), Expires: 10/11/2025 Start: 10-11-2024 End: 10-11-2025 US Pelvis US Pelvis w/ TV Imaging Routine PCOS (polycystic ovarian syndrome) Expected: 10/11/2024, Expires: 10/11/2025 [facility] Comment on above: Expected: 10/11/2024 , Expires: 10/11/2025 Start: 10-11-2024 End: 10-11-2024 Patient encounter procedure 10/11/2024 8:50 AM EST Office Visit [facility] [address] [place] [phone] Hermelindo Wyatt DO [address] [place] [address] [facility] Start: 09-13-2024 End: 09-13-2025 CBC panel - Blood by Automated count CBC Lab Routine Other fatigue Expected: 09/13/2024 (Approximate), Expires: 09/13/2025 [facility] Work Phone: Comment on above: Expected: 09/13/2024 (Approximate), Expires: 09/13/2025 Start: 06-28-2024 [facility] Start: 06-28-2024 Urine culture [facility] Start: 04-17-2024 Influenza vaccination Influenza Vacc ine (#1) [facility] Start: 11-18-2022 [facility] Atopobium vaginae DN A [Presence] in Vaginal fluid by CYNDEE with probe detection [facility] Bacterial vaginosis associated bacterium 2 DNA [Presence] in Vaginal fluid by CYNDEE with probe detection [facility] CBC W Auto Different ial panel - Blood CBC and differential Lab Routine PCOS (polycystic ovarian syndrome) Ordered: 10/11/2024 [facility] Comment on above: Ordered: 10/11/2024 DHEA-sulfate DHEA-sulfate Lab Routine PCOS (polycystic ovarian syndrome) Ordered: 10/11/2024 [facility] Comment on above: Ordered: 10/11/2024 Follicle stimulating hormone Follicle stimulating hormone Lab Routine PCOS (polycystic ovarian syndrome) Ordered: 10/11/2024 [facility] Comment on above: Ordered: 10/11/2024 hCG, quantitative, hCG, quantitative, Lab Routine PCOS (polycystic ovarian syndrome) Ordered: 10/11/2024 [facility] Work Phone: Comment on above: Ordered: 10/11/2024 Hemoglobin A1c/Hemoglobin.total in Blood Hemoglobin A1c Lab Routine Abnormal uterine bleeding (AUB) Ordered: 10/11/2024 [facility] Comment on above: Ordered: 10/11/2024 Luteinizing hormone Luteinizing hormone Lab Routine PCOS (polycystic ovarian syndrome) Ordered: 10/11/2024 [facility] Comment on above: Ordered: 10/11/2024 Megasphaera sp type 1 DNA [Presence] in Vaginal fluid by CYNDEE with probe detection [facility] Thyrotropin [Units/volume] in Serum or Plasma TSH Lab Routine PCOS (polycystic ovarian syndrome) Ordered: 10/11/2024 [facility] Comment on above: Ordered: 10/11/2024 Thyroxine (T4) free [Mass/volume] in Serum or Plasma T4, free Lab Routine PCOS (polycystic ovarian syndrome) Ordered: 10/11/2024 [facility] Comment on above: Ordered: 10/11/2024 Immunizations Immunization Date Immunization Notes Care Provider Kyle viveros 04-21-2019 meningococcal B vacc ine, recombinant, OMV, adjuvanted Marcus Villanueva MD Work Phone: [facility] 04-20-2014 tetanus toxoid, redu edward diphtheria toxoid, and acellular pertussis vaccine, adsorbed Marcus Villanueva MD Work Phone: [facility] 02-21-2005 diphtheria, tetanus toxoids and acellular pertussis vaccine, unspecified formulation Marcus Villanueva MD Work Phone: [facility] 02-21-2005 hepatitis B vaccine, pediatric or pediatric/adolescent dosage Marcus Villanueva MD Work Phone: [facility] 02-21-2005 pneumococcal conjuga te vaccine, 7 valent Marcus Villanueva MD Work Phone: [facility] 12-14-2002 diphtheria, tetanus toxoids and acellular pertussis vaccine, unspecified formulation Marcus Villanueva MD Work Phone: [facility] 12-14-2002 measles, mumps and rubella virus vaccine Marcus Villanueva MD Work Phone: [facility] 12-14-2002 pneumococcal conjuga te vaccine, 7 valent Marcus Villanueva MD Work Phone: [facility] 12-14-2002 poliovirus vaccine, inactivated Marcus Villanueva MD Work Phone: [facility] 11-03-2002 diphtheria, tetanus toxoids and acellular pertussis vaccine, unspecified formulation Marcus Villanueva MD Work Phone: [facility] 11-03-2002 haemophilus influenz ae type b conjugate and Hepatitis B vaccine Marcus Villanueva MD Work Phone: [facility] 11-03-2002 poliovirus vaccine, inactivated Marcus Villanueva MD Work Phone: [facility] 2001 diphtheria, tetanus toxoids and acellular pertussis vaccine, unspecified formulation Marcus Villanueva MD Work Phone: [facility] 2001 haemophilus influenz ae type b conjugate and Hepatitis B vaccine Marcus Villanueva MD Work Phone: [facility] 2001 pneumococcal conjuga te vaccine, 7 valent Marcus Villanueva MD Work Phone: [facility] 2001 poliovirus vaccine, inactivated Marcus Villanueva MD Work Phone: [facility] Payers Date Payer Category Payer Self-pay [id number] 2022 Private Health Insurance [employer] [id number] 2001 Unknown [id number]. 593 2001 Unknown [id number] [id number]. 593 2001 Unknown [id number] [id number]. 593 2001 Unknown [id number] [id number]. 593 2001 Unknown [id number] [id number]. 593 2001 Unknown [id number] [id number]. 1259 2001 Unknown [id number] [id number]. 1259 2001 Unknown [id number] [id number]. 1259 2001 Unknown [id number] [id number]. 1259 2001 Unknown [id number] [id number]. 1259 2001 Unknown [id number] [id number]. 1259 1958 Medicaid [id number] 1959 Unknown [id number] Unknown [id number]. 531 Social History Date Type Detail Facility Start: 05-22-2020 End: 02-04-2023 Tobacco smoking status Never smoked tobacco (finding) [employer] Other Comment on above: denies Start: 03-02-2023 End: 12-08-2023 Sex Assigned At Female [facility] Other Start: 2001 Sex Assigned At Female [facility] Work Phone: Start: 06-28-2024 End: 06-29-2024 Sex Female (finding) [facility] Start: 02-04-2023 Tobacco use and exposure Smokeless tobacco non-user [facility] Start: 12-08-2023 End: 12-07-2024 Alcoholic beverage intake Lifetime non-drinker (finding) [facility] Start: 03-02-2023 End: 12-08-2023 History of Social function [facility] Start: 02-04-2023 Alcohol Comment caffeine 1-2 cups/da y [facility] Start: 2001 Sex assigned at Not on file N [facility] Clinical Notes 09-07-2021 to 12-07-2024 Lynda Velasco NP - 12/07/2024 4:00 PM Adriana Mabry - 11/01/2024 11:40 AM Deanna Keene LPN - 10/11/2024 8:50 AM Amaris Villanueva MD - 09/13/2024 1:27 PM EST Note Date & Type Note Facility 12-07-2024 History of Presen t illness Narrative Reason for Appointment: Patient ID: Mati Holt is a 24 y.o. female who presents for Post-op Visit (Patient is post-operative Dx Lap on 11/25/2024) Patient presents today for 1 Week Post Op Follow Up appointment. MEDICATIONS Current Outpatient Medications Medication Instructions citalopram (CELEXA) 10 mg, Oral, Daily ALLERGIES No Known Allergies PROBLEMS Active Ambulatory Problems Diagnosis Date Noted Adjustment disorder with depressed mood ([facility]) 01/05/2018 Anxiety 02/13/2020 Other fatigue 03/02/2023 Atrophic gastritis 01/05/2018 Chronic gastritis without bleeding 03/02/2023 Constipation 03/02/2023 Daily headache 03/02/2023 Depression ([facility]) 12/19/2017 Difficulty sleeping 03/02/2023 Dorsalgia, unspecified 03/02/2023 Encounter for contraceptive management, unspecified 03/02/2023 Endometriosis 03/05/2021 Generalized anxiety disorder ([facility]) 02/27/2020 History of concussion 03/02/2023 History of mononucleosis 03/02/2023 Impaired fasting glucose 03/02/2023 Major depressive disorder, single episode, unspecified ([facility]) 03/02/2023 Neck muscle spasm 03/02/2023 Other chronic pain 03/02/2023 Protein calorie malnutrition ([facility]) 03/02/2023 Sore throat, chronic 03/02/2023 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 Tylenol overdose, intentional self-harm, initial encounter ([facility]) 12/18/2017 Tylenol overdose 12/18/2017 Underweight 03/02/2023 Urinary frequency 03/02/2023 Tinea capitis 03/03/2023 Tension headache 05/11/2023 Ingrowing nail, left great toe 09/13/2024 Primary insomnia 09/13/2024 Post-operative state 12/07/2024 Resolved Ambulatory Problems Diagnosis Date Noted No Resolved Ambulatory Problems Past Medical History: Diagnosis Date Concussion 2019 Ectopic History of being hospitalized 12/[address] scan 05/22/[address] scan 09/15/2020 Seizures ([facility]) 2001 HISTORY PAST MEDICAL HISTORY SOCIAL HISTORY Past Medical History: Diagnosis Date Concussion 2019 Depression ([facility]) Ectopic ectopic with spontaneous miscarriage Endometriosis History of being hospitalized 12/2017 depression/suicide attempt History of CT scan 05/22/2020 CT scan of brain normal History of CT scan 09/15/2020 CT scan of abdomen and pelvis shows Right Pelvis 3.9 cyst suspected to be ovarian in origin Seizures ([facility]) 2001 Social History Tobacco Use Smoking status: Never Smokeless tobacco: Never Vaping Use Vaping status: Never Used Substance Use Topics Alcohol use: Never Comment: caffeine 1-2 cups/day Drug use: Never FAMILY HISTORY No family history on file. SURGICAL HISTORY Past Surgical History: Procedure Laterality Date BONE AGE STUDY 2010 CHLAMYDIA 01/2022 LAPAROSCOPY DIAGNOSTIC / BIOPSY / ASPIRATION / LYSIS 11/25/2024 dx lap OVARIAN CYST REMOVAL 12/2020 Dr. Vieira REVIEW [...] Skin: General: Skin is warm and dry. Comments: Incisional site at umbilicus has healed well and small incision to left mid abdomen is healed completely Psychiatric: Mood and Affect: Mood normal. Behavior: Behavior normal. Vitals and nursing note reviewed. Exam conducted with a time study technologist present. Vitals: Estimated body mass index is 18.18 kg/m as calculated from the following: Height as of 09/13/24: 4' 11 . Weight as of this encounter: 90 lb. BP: 90/60 No LMP recorded. ASSESSMENT & PLAN ICD-10-CM 1. Post-operative state Z98.890 Patient presents for 1 week Post Operative Diagnostic Lap appointment. She reports no further significant complaints of pain and Dr. Wyatt discussed with the patient today that there was no visualized Endometriosis. She is relieved by the findings and has no further concerns and all her questions were answered. Documented by Lynda Velasco NP on behalf of: Lynda Velasco NP documented in this encounter [facility] 11-01-2024 History of Presen t illness Narrative Reason for Appointment: Patient ID: Mati Holt is a 24 y.o. female who presents for Pre-op Visit Patient presents today for Pre Op appointment. Patient is scheduled to undergo Diagnostic Laparoscopy, possible ELEANOR, possible FOE, possible BSO on 11/25/[address] Wyatt at [facility]. MEDICATIONS Current Outpatient Medications Medication Instructions ALPRAZolam (XANAX) 0.25 mg, Oral, Every 12 hours baclofen (Lioresal) 10 MG tablet TAKE 1 TABLET BY MOUTH IN THE MORNING, EVENING, AND BEFORE BEDTIME desogestrel-ethinyl estradiol (Apri) 0.15-30 MG-MCG tablet 1 tablet, Oral, Daily ALLERGIES No Known Allergies PROBLEMS Active Ambulatory Problems Diagnosis Date Noted Adjustment disorder with depressed mood ([facility]) 01/05/2018 Anxiety 02/13/2020 Other fatigue 03/02/2023 Atrophic gastritis 01/05/2018 Chronic gastritis without bleeding 03/02/2023 Constipation 03/02/2023 Daily headache 03/02/2023 Depression ([facility]) 12/19/2017 Difficulty sleeping 03/02/2023 Dorsalgia, unspecified 03/02/2023 Encounter for contraceptive management, unspecified 03/02/2023 Endometriosis 03/05/2021 Generalized anxiety disorder ([facility]) 02/27/2020 History of concussion 03/02/2023 History of mononucleosis 03/02/2023 Impaired fasting glucose 03/02/2023 Major depressive disorder, single episode, unspecified ([facility]) 03/02/2023 Neck muscle spasm 03/02/2023 Other chronic pain 03/02/2023 Protein calorie malnutrition ([facility]) 03/02/2023 Sore throat, chronic 03/02/2023 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 Tylenol overdose, intentional self-harm, initial encounter ([facility]) 12/18/2017 Tylenol overdose 12/18/2017 Underweight 03/02/2023 Urinary frequency 03/02/2023 Tinea capitis 03/03/2023 Tension headache 05/11/2023 Ingrowing nail, left great toe 09/13/2024 Primary insomnia 09/13/2024 Resolved Ambulatory Problems Diagnosis Date Noted No Resolved Ambulatory Problems Past Medical History: Diagnosis Date Concussion 2019 Ectopic History of being hospitalized 12/[address] scan 05/22/[address] scan 09/15/2020 Seizures ([facility]) 2002 HISTORY PAST MEDICAL HISTORY SOCIAL HISTORY Past Medical History: Diagnosis Date Concussion 2019 Depression ([facility]) Ectopic ectopic with spontaneous miscarriage Endometriosis History of being hospitalized 12/2017 depression/suicide attempt History of CT scan 05/22/2020 CT scan of brain normal History of CT scan 09/15/2020 CT scan of abdomen and pelvis shows Right Pelvis 3.9 cyst suspected to be ovarian in origin Seizures (CMS/HCC) 2002 Social History Tobacco Use Smoking status: Never [...] nursing note reviewed. Exam conducted with a time study technologist present. Vitals: Estimated body mass index is [...] reviewed, and patient is to proceed to H OR. Pt states having mood changes- denies suicidal and homicidal ideations- rx for celexa faxed to pharmacy. Pt to return in 8 weeks for follow up on celexa Follow Up: Patient is to follow up between 1-2 weeks post operative to assess proper healing and recovery from procedure. Documented by Leida Keene LPN on behalf of: Hermelindo Wyatt DO documented in this encounter [facility] 10-11-2024 History of Presen t illness Narrative [...] unspecified 03/02/2023 Endometriosis 03/05/2021 Generalized anxiety disorder (CMS/HCC) 02/27/2020 History of concussion 03/02/2023 History of mononucleosis 03/02/2023 Impaired fasting glucose 03/02/2023 Major depressive disorder, single episode, unspecified (CMS/HCC) 03/02/2023 Neck muscle spasm 03/02/2023 Other chronic pain 03/02/2023 Protein calorie malnutrition (CMS/HCC) 03/02/2023 Sore throat, chronic 03/02/2023 Trichotillomania (CMS/HCC) 04/05/2021 Tylenol overdose, intentional self-harm, initial encounter ([facility]) 12/18/2017 Tylenol overdose 12/18/2017 Underweight 03/02/2023 Urinary frequency 03/02/2023 Tinea capitis 03/03/2023 Tension headache 05/11/2023 Ingrowing nail, left great toe 09/13/2024 Primary insomnia 09/13/2024 Resolved Ambulatory Problems Diagnosis Date Noted No Resolved Ambulatory Problems Past Medical History: Diagnosis Date Concussion 2019 Ectopic History of being hospitalized 12/[address] scan 05/22/[address] scan 09/15/2020 Seizures ([facility]) 2002 HISTORY PAST MEDICAL HISTORY SOCIAL HISTORY Past Medical History: Diagnosis Date Concussion 2019 Depression ([facility]) Ectopic ectopic with spontaneous miscarriage Endometriosis History of being hospitalized 12/2017 depression/suicide attempt History of CT scan 05/22/2020 CT scan of brain normal History of CT scan 09/15/2020 CT scan of abdomen and pelvis shows Right Pelvis 3.9 cyst suspected to be ovarian in origin Seizures ([facility]) 2001 Social History Tobacco Use [...] nursing note reviewed. Exam conducted with a time study technologist present. Vitals: Estimated body mass index is [...] Hermelindo Wyatt DO documented in this encounter [facility] 09-13-2024 History of Presen t illness Narrative [...] file. Past Medical History: Diagnosis Date Concussion 2018 Depression (CMS/HCC) Ectopic ectopic with spontaneous miscarriage [...] follow-ups on file. documented in this encounter [facility] 11-18-2022 Evaluation note Encounter Date Diagnosis Assessment [...] and if positive, will follow up with [employer], as she states the last time she was positive she was treated with IV infusion. Advised patient that specimen was sent to lab and patient will be notified of results. Tx plan may be altered at time of results. Stressed importance of not drinking alcohol while taking Flagyl as it will cause reaction. Take as directed. Patient to follow with PCP or [employer] as needed for persistent or worsening symptoms. Immediate eval if abdominal pain, fever, chills, body aches, back/flank pain, nausea, urinary complaints. Avoid douching and sexual activity at this time. Patient verbalizes understanding and is agreeable to treatment plan. Nov, Dysuria (ICD-10 - R30.0) [facility] Other 05-23-2022 Evaluation + Plan note Diagnostic Tests Pending * Nuab Vaginitis Plus (VG+) 01/06/22 [facility]01-[facility]-20[facility] Evaluation note* Encounter Date Diagnosis Assessment [...] 2 to 3 days. Always use condoms [facility] Other Evjbifhuim noteNo assessment information available [facility] Work Phone: evaluation noteNo [facility] Other evaluation note* Diagnosis Tension headache- Primary Anxiety Anxiety [...] mood disorder [facility] Diagnosis Tension headache- Primary Anxiety Anxiety state, unspecified Tension headache- Primary Anxiety Anxiety state, unspecified Tension headache- Primary Endometriosis Endometriosis, site unspecified Other fatigue Ingrowing nail, left great toe Ingrowing nail Primary insomnia Persistent disorder of initiating or maintaining sleep Post-operative state Other postprocedural status documented in this encounter [facility] Narrative - Reported* Type Description Date Medical History anxiety Medical History chronic depression Medical History endometriosis Surgical History cyst removal Hospitalization History see above [facility] Other Hospital course Narrative No data available for this section [facility] No data available for this section [facility] No data available for this section [facility] Summary Purpose Family History No Family History Records Found Relationship Condition Age at Onset Recorded Date/T alexi brother Unknown Advance Directives No Advanced Directives Records Found Advance Directive Response Recorded Date/ Time Advance [...] June 28, 2024 End: June 28, 2024 Precision Inspector Relationship Specialty Start Date End Date Marcus Villanueva MD [address] [place] [address] PCP - [facility] 01/29/23 Marcus Villanueva MD [address] [place] [address] PCP - [facility] 11/15/22 Precision Inspector Relationship Specialty Start Date End Date Marcus Villanueva MD [address] [place] [address] PCP - [facility] 01/29/23 Marcus Villanueva MD [address] [facility] [address] [place] [address] PCP - [facility] 11/15/22 Precision Inspector Relationship Specialty Start Date End Date Marcus Villanueva MD [address] [facility] [address] [place] [address] PCP - [facility] 01/29/23 Marcus Villanueva MD [address] [facility] [address] [place] [address] PCP - [facility] 11/15/22 Precision Inspector Relationship Specialty Start Date End Date Marcus Villanueva MD [address] [facility] [address] [place] [address] PCP - [facility] 01/29/23 Marcus Villanueva MD [address] [facility] [address] [place] [address] PCP [facility] 11/15/22 Precision Inspector Relationship Specialty Start Date End Date Marcus Villanueva MD [address] [facility] [address] [place] [address] PCP - [facility] 01/29/23 Marcus Villanueva MD [address] [facility] [address] [place] [address] PCP - [facility] 11/15/22 Precision Inspector Relationship Specialty Start Date End Date Marcus Villanueva MD [address] [facility] [address] [place] [address] PCP - [facility] 01/29/23 Marcus Villanueva MD [address] [facility] [address] [place] [address] PCP - [facility] 11/15/22 Precision Inspector Relationship Specialty Start Date End Date Marcus Villanueva MD [address] [facility] [address] [place] [address] PCP - [facility] 01/29/23 Marcus Villanueva MD [address] [facility] [address] [place] [address] PCP - [facility] 11/15/22 INFORMATION SOURCE (unrecogn ized section and content) DATE CREATED AUTHOR 02/10/2022 [facility] DATE CREATED AUTHOR AUTHOR'S ORGANIZ ATION 11/24/2022 [facility] DATE CREATED AUTHOR AUTHOR'S ORGANIZ ATION 07/04/[address] [facility] DATE CREATED AUTHOR AUTHOR'S ORGANIZ ATION 12/08/2024 [facility] EPIC REASON FOR VISIT (unrecogniz ed section and content) Reason Comments tension headache Reason Comments Endometriosis Reason Comments Pre-op Visit Reason Comments Post-op Visit Patient is post-oper ative Dx Lap on 11/25/2024 Goals (unrecognized section and content) Goals may [...] BE BASED ON THE PRIMARY CLINICAL RECORDS. [facility] [employer] [facility]. provides no warranty or guarantee of the accuracy or completeness of information in this document.
[2025-01-28 21:54] VITALS: BP 101/71; PULSE 74; TEMP 36.8; O2SAT 100
--- NOTE | 2025-01-28 22:29 | PC.NURSE ---
Straight stick blood drawn and sent to lab.
[2025-01-28 22:50] LABS: HCG Quantitative <1 mIU/mL
[2025-01-28] MEDS: KETOROLAC TROMETHAMINE 10 MG TABLET PO (23:26)
[2025-01-28] MEDS: HYOSCYAMINE SULFATE 0.125 MG TAB.SUBL SL (23:26)
--- NOTE | 2025-01-28 23:35 | ED_ITS ---
HPI - Abdominal Pain General Chief Complaint: Abdominal Pain Stated Complaint: ABD PAIN Time Seen by Provider: 01/28/25 21:55 Source: patient Mode of arrival: walk-in Limitations: no limitations History of Present Illness HPI narrative: CC - ABD PAIN Pt had surgical eval w Dr Wyatt in November looking for endometriosis but the eval was negative. She said that she was told that she was backed up . She was supposed to see her PCP to discuss this further but did not. The pain in the right side of her abdomen has persisted since then - waxing and waning but never completely resolving. She admitted to little to no stool passage in the last 24 hours - last BM passed without difficulty and without blood. No other symptoms and pain does not radiate beyond the ride lateral abdomen. She took some miralax yesterday. Related Data Home Medications ?Medication ?Instructions ?Recorded ?Confirmed alprazolam 0.25 mg tablet 0.25 mg PO BID PRN anxiety 0 11/15/24 11/25/24 citalopram 10 mg tablet 10 mg PO DAILY 11/15/2411/15 Previous Rx's ?Medication ?Instructions ?Recorded hydrocodone 5 mg-acetaminophen 325 1 tab PO Q4H PRN pa in 4 days #16 11/25/24 mg tablet tabs ibuprofen 800 mg tablet 800 mg PO Q8H PRN pain 14 da ys #40 11/25/24 tabs hyoscyamine sulfate 0.125 mg 0.125 mg PO Q6H PRN abdom inal pain 01/28/25 sublingual tablet (Levsin/SL) #20 tabs Allergies Allergy/AdvReac Type Severity Reaction Status Date / Time No Known Drug Allergies Allergy Verified 01/28/25 22:04 [facility] Medical History (Updated 01/28/25 @ 23:39 by Dinesh Lawler) Anxiety ?F41.9 - Anxiety disorder, unspecified (ICD-10) Depression ?F32.A - Depression, unspecified (ICD-10) Headache ?R51.9 - Headache, unspecified (ICD-10) Seizures ?R56.9 - Unspecified convulsions (ICD-10) PCOS (polycystic ovarian syndrome) ?E28.2 - Polycystic ovarian syndrome (ICD-10) Pelvic pain ?R10.2 - Pelvic and perineal pain (ICD-10) Heartburn ?R12 - Heartburn (ICD-10) Surgical History (Updated 11/15/24 @ 11:20 by Bianca Katz NP) H/O ovarian cystectomy ?Z98.890 - Other specified postprocedural states (ICD-10) ?Z87.42 - Personal history of other diseases of the female genital tract (ICD-10) Family History (Updated 11/15/24 @ 11:20 by Bianac Katz NP) Other Family history of cancer Social History (Updated 11/15/24 @ 11:15 by Bianca Katz NP) Within the past year, how often did you have a drink containing alcohol: never Score interpretation: A score less than 3 is consistent with normal alcohol consumption. Smoking status: Never smoker Non-prescribed substance use: denies use Highest level of school completed/degree received: high school graduate Little interest or pleasure in doing things: not at all Feeling down, depressed, or hopeless: not at all Exam Narrative Exam Narrative: Nurses notes and vital signs reviewed and patient is not hypoxic. afebrile General: Well-appearing and in no apparent distress. Skin: Warm, dry, no pallor noted. No zoster like rash. Head: Normocephalic, atraumatic. Neck: Supple, non-tender. Eye: Pupils are equal, round and EOMI. No scleral icterus. Ears, Nose, Mouth, and Throat: Oral mucosa is moist Cardiovascular: Regular Rate and Rhythm without murmur, gallop or rub. Respiratory: No accessory muscle use or respiratory distress. Lungs are clear to auscultation, no wheezing, rales or rhonchi Back: No CVA tenderness Musculoskeletal: normal ROM, no calf or popliteal tenderness, no lower extremity edema/swelling GI: Abdomen is soft, non-distended. Normal bowel sounds. No abdominal or adnexal masses appreciated. Very minimal diffuse right-sided abdominal tenderness to palpation. No rebound, guarding, or rigidity noted. Neurological: A&O x4. No cranial nerve dysfunction observed. No truncal ataxia. Moves all extremities. Sensation intact. Psychiatric: Cooperative and interactive. Normal mood and affect. Constitutional Vital Signs, click to edit/add: Last Vital Signs Temp 98.3 F 01/28/25 21:54 Pulse 74 01/28/25 21:54 Resp 20 01/28/25 21:54 BP 101/71 01/28/25 21:54 Pulse Ox 100 01/28/25 21:54 O2 Del Method Room Air 01/28/25 21:54 Course Vital Signs Vital signs: Vital Signs Temperature 98.3 F 01/28/25 21:54 Pulse Rate 74 01/28/25 21:54 Respiratory Rate 20 01/28/25 21:54 Blood Pressure 101/71 01/28/25 21:54 Pulse Oximetry 100 01/28/25 21:54 Oxygen Delivery Method Room Air 01/28/25 21:54 Temperature 98.3 F 01/28/25 21:54 Pulse Rate 74 01/28/25 21:54 Respiratory Rate 20 01/28/25 21:54 Blood Pressure 101/71 01/28/25 21:54 Pulse Oximetry 100 01/28/25 21:54 Oxygen Delivery Method Room Air 01/28/25 21:54 MDM - Abdominal Pain MDM Narrative Medical decision making narrative: Patient uncertain about last menstrual period and said that she was on Depo. She was unable to give urine sample so blood testing for was obtained and found to be negative. She was then sent for x-ray of the abdomen/kub, which was unremarkable and did not show large stool burden. She was given Levsin and Toradol for her pain. We discussed her negative workup and I recommended that she maintain a clear liquid diet tomorrow with MiraLAX and continue to take the Levsin that I am prescribing to see if that helps resolve the situation. We discussed proper diet and need for follow-up with her PCP. If this symptomatology persists, she would likely need referral to gastroenterology. Lab Data Attestation: I reviewed the patient's lab results. Labs: Lab Results 01/28/25 Range/Units 22:23 HCG, Quant <1 mIU/mL Imaging Data Abdominal x-ray: Attestation: I personally reviewed and interpreted this imaging study as follows: My impression: NAD Discharge Plan Discharge Chief Complaint: Abdominal Pain Clinical Impression: Abdominal pain Patient Disposition: Home, Self-Care Time of Disposition Decision: 23:39 Prescriptions / Home Meds: New hyoscyamine sulfate [Levsin/SL] 0.125 mg tablet, sublingual 0.125 mg PO Q6H PRN (Reason: abdominal pain) Qty: 20 0RF No Action citalopram 10 mg tablet 10 mg PO DAILY alprazolam 0.25 mg tablet 0.25 mg PO BID PRN (Reason: anxiety) ibuprofen 800 mg tablet 800 mg PO Q8H PRN (Reason: pain) 14 Days Qty: 40 0RF hydrocodone-acetaminophen 5-325 mg tablet 1 tab PO Q4H PRN (Reason: pain) 4 Days Qty: 16 0RF Print Language: Luxembourgish Instructions: Abdominal Pain (ED) Referrals: REHAN VILLANUEVA [Primary Care Provider, Family Practice] - 1 week
[2025-01-28 23:55] VITALS: BP 96/66; PULSE 60; O2SAT 99
== END 2025-01-28 23:50 | disposition home or self-care (01) ==
PROVIDERS: Emergency Provider Emergency Medicine; PCP Family Medicine
DX: R10.9 Unspecified abdominal pain (principal)
CPT/HCPCS: 36415; 74018; 84702; 99284

== ENCOUNTER 2025-04-07 14:35 | Outpatient (OUT) | payer OTHER, SELFPAY ==
--- OUTSIDE RECORDS SUMMARY | 2025-04-07 14:42 | XMS_ITS | CCD ---
Author Organization [facility] CliniSyak Care Team Providers Care Hospitality Associate Name Role Phone MARCUS VILLANUEVA Primary Care Physician Niharika Valencia Unavailable AMRIT Vega Attending Provider Marily Vega Unavailable KAY, DR VAN Primary Care Unavailable REINECK, DR ROSALIO Mcbride Admitting Unavailabl e REINECK, DR ROSALIO Mcbride Attending Unavailabl e SHIKHA ., NARGIS Consulting Unavailable SIMIN RICO Consulting Unavailable KAY, DR VAN Primary Care Unavailable HAY ., DR ANGEL Admitting Unavailable HAY ., DR ANGEL Attending Unavailable HAY ., DR ANGEL Consulting Unavailable NICAHUSSEIN SNOWDEN Consulting Unavailable KAY, DR VAN Primary Care [...] VILLANUEVA Attending Unavailable HERMELINDO WYATT Attending Unavailable ERMELINDA GALEANO Attending Unavailable HERMELINDO WYATT Attending Unavailable LYNDA VELASCO Attending Unavailable AYANA RUELAS Attending Unavailable Joy Wooten MD Attending Provider [phone] NON STAFF Primary Care Provider Unavailabl e Medications Current Medications Medication Drug Class(es) Dates [...] Status: Ordered citalopram 10 mg oral tablet (10 sources) Serotonin Reuptake Inhibitor Start: 11-02-19 End: 11-02-19 take 1 tablet by mouth once daily Flonase 0.05 mg/inh nasal spray (1 source) [...] Active MG IM June 28, 2024 12:00am Completed/Discontinued Medications Medication Drug Class(es) Dates Sig [...] ml medroxyPROGESTERone acetate 150 mg/ml prefilled syringe (3 sources) Progestin Start: 06-28-2024 End: 04-06-2025 Medroxyprogesterone 150 mg/mL syringe Discontinued MG IM June 28, 2024 1:00am April 06, 2025 10:14am Start: 07-20-2023 End: 09-13-2024 medroxyPROGESTERone (Depo-Pr overa) 150 MG/ML suspension prefilled syringe injection syringe [...] tablet 11 09/13/2024 09/13/2024 Discontinued (Side effects) metroNIDAZOLE 0.0075 mg/mg vaginal gel (6 sources) Nitroimidazole Antimicrobial Start: 06-28-2024 End: 04-06-2025 Metronidazole 0.75 % (37.5mg/5 gram) gel Discontinued 1 APPLICATOR VAGINAL Daily 70 June 28, 2024 1:00am April 06, 2025 10:15am Start: 06-28-2024 Metronidazole 0.75 % (37.5mg/5 gram) gel Active 1 APPLICATOR VAGINAL Daily 70 June 28, 2024 12:00am Start: 11-18-2022 take 1 tablet by georgi th every twelve hours metroNIDAZOLE 500 MG 1 tablet Orally Twice a day for 7 days Nov, Active Start: 09-07-2021 take 4 tablets by mouth once m etroNIDAZOLE 500 MG 4 tablets Orally once for 1 days Aug, Active metroNIDAZOLE 0. 75 % 1 application Vaginal qhs for 5 day(s) Active Problems Active Problems Problem Classification Problem Date Documented Da te Episodic/Chronic Abdominal pain (7 sources) Unspecified abdominal pain; Translations: [Pain in female pelvis] Onset: 11-22-2022 Episodic Adjustment disorders (14 sources) Adjustment disorder with depressed mood; Translations: [Adjustment disorder with depressed mood] Onset: 01-05-2018 03-02-2023 Chronic Anxiety disorders (20 sources) Anxiety disorder, unspecified; Translations: [Anxiety] Onset: 02-13-2020 03-02-2023 Chronic Conditions associated with dizziness or vertigo (4 sources) Dizziness and giddiness; Translations: [DIZZINESS AND GIDDINESS] Onset: 10-30-2022 Episodic Endometriosis (18 sources) Endometriosis (clinical); Translations: [Endometriosis, unspecified] Onset: 03-05-2021 09-13-2024 Chronic Gastritis and duodenitis (20 sources) Atrophic gastritis; Translations: [Chronic atrophic gastritis without bleeding] Onset: 01-05-2018 03-02-2023 Chronic Headache; including migraine (16 sources) Tension-type headache; Translations: [Tension-type headache, unspecified, not intractable] Onset: 05-11-2023 09-13-2024 Chronic Headache; including migraine (1 source) Headache; including migraine; Translations: [HEADACHE UNSPECIFIED] Onset: 11-08-2022 Impulse control disorders, NEC (14 sources) Trichotillomania; 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] Onset: 04-05-2021 03-02-2023 Chronic Miscellaneous mental health disorders (16 sources) Primary insomnia; Translations: [Primary insomnia] Onset: 09-13-2024 09-13-2024 Chronic Mood disorders (20 sources) Depressive disorder; Translations: [Depression] Onset: 12-19-2017 03-02-2023 Chronic Nutritional deficiencies (14 sources) Deficiency of macronutrients; Translations: [Unspecified protein-calorie malnutrition] Onset: 03-02-2023 03-02-2023 Chronic Other aftercare (1 source) Other longshore equipment operator (current) drug therapy; Translations: [OTH SECOND OFFICER CURRENT DRUG THERAPY] Onset: 11-24-2022 Episodic Other [...] vagina Onset: 09-07-2021 Resolved: 09-07-2021 Episodic Other gastrointestinal disorders (16 sources) Constipation; Translations: [Constipation, unspecified] Onset: 03-02-2023 03-02-2023 Episodic Other gastrointestinal disorders (4 sources) Chronic constipation; Translations: [Other constipation] 02-08-2025 Episodic Other nervous system disorders (14 sources) Chronic pain; Translations: [Other chronic pain] Onset: 03-02-2023 03-02-2023 Chronic Other nervous system disorders (4 sources) Complex regional pain syndrome; Translations: [Complex regional pain syndrome I, unspecified] 02-08-2025 Chronic Other upper respiratory disease (14 sources) Sore throat - chronic; Translations: [Chronic pharyngitis] Onset: 03-02-2023 03-02-2023 Chronic Residual codes; unclassified (7 sources) Postoperative state; Translations: [Other specified postprocedural states] Onset: 12-07-2024 12-07-2024 Episodic Unclassified (3 sources) LOW BACK PAIN, UNSPECIFIED; Translations: [LOW BACK PAIN, UNSPECIFIED] Onset: 06-17-2022 Past or Other Problems Problem Classification Problem Date Documented Date Episodic/Chronic Contraceptive and procreative management (14 sources) Patient encounter status; Translations: [Encounter for contraceptive management, unspecified] Onset: 03-02-2023 03-02-2023 Episodic Diabetes mellitus without complication (14 sources) Impaired fasting glycemia; Translations: [Impaired fasting glucose] Onset: 03-02-2023 03-02-2023 Episodic Genitourinary symptoms and ill-defined conditions (16 sources) Dysuria; Translations: [Increased frequency of urination] Onset: 03-02-2023 Episodic Headache; including migraine (14 sources) Daily headache; Translations: [Daily headache] Onset: 03-02-2023 03-02-2023 Episodic Intracranial injury (15 sources) Personal history of traumatic brain injury; Translations: [History of concussion injury of brain] Onset: 11-08-2022 03-02-2023 Episodic Malaise and fatigue (20 sources) Other fatigue; Translations: [Fatigue] Onset: 01-07-2022 Episodic Mycoses (14 sources) Tinea capitis; Translations: [Tinea barbae and tinea capitis] Onset: 03-03-2023 03-03-2023 Episodic Nonspecific chest pain (1 source) Chest pain, unspecified; Translations: [CHEST PAIN UNSPECIFIED] Onset: 01-09-2022 Episodic Other connective tissue disease (14 sources) Muscle spasm of cervical muscle of neck; Translations: [Other muscle spasm] Onset: 03-02-2023 03-02-2023 Episodic Other infections; including parasitic (14 sources) History of glandular fever; Translations: [Personal history of other infectious and parasitic diseases] Onset: 03-02-2023 03-02-2023 Episodic Other lower respiratory disease (1 source) Shortness of breath; Translations: [SHORTNESS OF BREATH] Onset: 01-09-2022 Episodic Other nutritional; endocrine; and metabolic disorders (14 sources) Underweight; Translations: [Underweight] Onset: 03-02-2023 03-02-2023 Episodic Other skin disorders (3 sources) Rash and other nonspecific skin eruption; Translations: [RASH OTH NONSPECIFIC SKIN ERUPTION] Onset: 12-31-2021 Episodic Other skin disorders (1 source) Follicular disorder, unspecified; Translations: [FOLLICULAR DISORDER UNSPECIFIED] Onset: 01-01-2022 Episodic Other skin disorders (16 sources) Ingrowing great toenail; Translations: [Ingrowing nail] Onset: 09-13-2024 09-13-2024 Episodic Poisoning by other medications and drugs (14 sources) Acetaminophen overdose; Translations: [Poisoning by 4-Aminophenol derivatives, accidental (unintentional), initial encounter] Onset: 12-18-2017 03-02-2023 Episodic Residual codes; unclassified (1 source) High risk heterosexual behavior Onset: 09-07-2021 Resolved: 09-07-2021 Episodic Residual codes; unclassified (14 sources) Difficulty sleeping ; Translations: [Sleep disorder, unspecified] Onset: 03-02-2023 03-02-2023 Episodic Spondylosis; intervertebral disc disorders; other back problems (14 sources) Backache; Translations: [Dorsalgia, unspecified] Onset: 03-02-2023 03-02-2023 Episodic Suicide and intentional self-inflicted injury (14 sources) Intentional paracetamol overdose; Translations: [Poisoning by 4-Aminophenol derivatives, intentional self-harm, initial encounter] Onset: 12-18-2017 03-02-2023 Episodic Unclassified (1 source) LOW BACK PAIN, UNSPECIFIED; Translations: [LOW BACK PAIN, UNSPECIFIED] Onset: 06-16-2022 Results Test Name Value Interpretation Reference Range Facility ALL CBC WITH AUTO DIFFon BASOPHILS ABSOLUTE AUTO 0.1 [facility] Basophils/100 WBC (Bld) 1.3 % 0.2 - 2.0 % [facility] Eosinophils/100 WBC (Bld) 2.5 % 0.9 - 7.0 % [facility] Erythrocyte distribution width (RBC) [Ratio] 12.1 % 11.0 - 15.0 % [facility] Hematocrit (Bld) [Volume fraction] 41.4 % 36.0 - 48.0 % [facility] Hemoglobin (Bld) [Mass/Vol] 13.6 g/dL 12.0 - 16.0 g/dL [facility] IMMATURE GRANULOCYTES ABS AUTO 0.02 [facility] Immature granulocytes/100 WBC (Bld) 0.4 % 0.0 - 0.5 % [facility] LYMPHOCYTES ABSOLUTE AUTO 1.6 [facility] Lymphocytes/100 WBC (Bld) 30.9 % 20.5 - 60.0 % [facility] MCH (RBC) [Entitic mass] 29.1 pg 26.7 - 34.0 pg [facility] MCHC (RBC) [Mass/Vol] 32.9 g/dL 29.9 - 35.2 g/dL [facility] MCV (RBC) [Entitic vol] 88.7 fL 81.0 - 99.0 fL [facility] MONOCYTES ABSOLUTE AUTO 0.5 [facility] Monocytes/100 WBC (Bld) 9 % 1.7 - 12.0 % [facility] NEUTROPHILS ABSOLUTE AUTO 2.9 [facility] Neutrophils/100 WBC (Bld) 55.9 % 43.0 - 75.0 % [facility] Platelet mean volume (Bld) [Entitic vol] 9.5 fL 9.5 - 13.5 fL [facility] TBH EO # 0.1 [facility] TBH PLT 231 [facility] TB RBC 4.67 [facility] TB WBC 5.3 [facility] US PELVIS W/ TRANSVAGINALon 11-16-[address] [address] Ultrasound Report Signed Patient: MATI HOLT MR#: [id number] : 2000 Acct:[id number] Age/Sex: 24 / F ADM Date: 11/16/24 Loc: US Attending Dr: Hermelindo Wyatt D.O. Ordering Physician: Hermelindo Wyatt D.O. Date of Service: 11/16/24 Procedure(s): US pelvis w/ transvaginal Accession Number(s): [id number] cc: MARCUS VILLANUEVA ; Hermelindo Wyatt D.O. [address] [address] Patient Name: MATI HOLT MRN: [id number] date: 2000 Sex: F Assigned Patient Location: US Current Patient Location: US Accession/Order Number: [id number] Exam Date: 11/16/2024 19:41 Report Date: 11/16/2024 [...] uterus and endometrial complex. Impression dictated by: iMko Wise M.D.11/16/2024 7:45 PM Dictation Location: [place] [address] Electronically authenticated by: [id number] Date: 11/16/2024 19:45 Dictated By: Miko Wise D.O. Signed By: 11/16/241947 DD/ 44 TD/TT: Domain Architect: [facility] Radiology, Radiologist, MD - 11/16/2024 [place] [address] Ultrasound Report Signed Patient: MATI HOLT MR#: [id number] : 2000 Acct:[id number] Age/Sex: 24 / F ADM Date: 11/16/24 Loc: US Attending Dr: Hermelindo Wyatt D.O. Ordering Physician: Hermelindo Wyatt D.O. Date of Service: 11/16/24 Procedure(s): US pelvis w/ transvaginal Accession Number(s): [id number] cc: MARCUS VILLANUEVA ; Hermelindo Wyatt D.O. [place] [address] Patient Name: MATI HOLT MRN: [facility]:[id number] date: 2000 Sex: F Assigned Patient Location: US Current Patient Location: US Accession/Order Number: [id number] Exam Date: 11/16/2024 19:41 Report Date: 11/16/2024 [...] Miko Wise M.D.11/16/2024 7:45 PM Dictation Location: [place] [address] Electronically authenticated by: [id number] Y Date: 11/16/2024 19:45 Dictated By: Miko Wise D.O. Signed By: 11/16/241947 DD/ 44 TD/TT: Domain Architect: [facility] Radiology Study observation (narrative) [facility] US PELVIS W/ TRANSVAGINALOrd ered By: Radiologist Radiology on 11-16-2024 [facility] Work Phone: ALL CBC WITH AUTO DIFFon BASOPHILS ABSOLUTE AUTO 0.1 [facility] Basophils/100 WBC (Bld) 1 % 0.2 - 2.0 % [facility] Eosinophils/100 WBC (Bld) 3.3 % 0.9 - 7.0 % [facility] Erythrocyte distribution width (RBC) [Ratio] 12.3 % 11.0 - 15.0 % [facility] Hematocrit (Bld) [Volume fraction] 42.8 % 36.0 - 48.0 % [facility] Hemoglobin (Bld) [Mass/Vol] 14.1 g/dL 12.0 - 16.0 g/dL [facility] IMMATURE GRANULOCYTES ABS AUTO 0.01 [facility] Immature granulocytes/100 WBC (Bld) 0.2 % 0.0 - 0.5 % [facility] LYMPHOCYTES ABSOLUTE AUTO 1.5 [facility] Lymphocytes/100 WBC (Bld) 32 % 20.5 - 60.0 % [facility] MCH (RBC) [Entitic mass] 29.1 pg 26.7 - 34.0 pg [facility] MCHC (RBC) [Mass/Vol] 32.9 g/dL 29.9 - 35.2 g/dL [facility] MCV (RBC) [Entitic vol] 88.2 fL 81.0 - 99.0 fL [facility] MONOCYTES ABSOLUTE AUTO 0.3 [facility] Monocytes/100 WBC (Bld) 5.9 % 1.7 - 12.0 % [facility] NEUTROPHILS ABSOLUTE AUTO 2.8 [facility] Neutrophils/100 WBC (Bld) 57.6 % 43.0 - 75.0 % [facility] Platelet mean volume (Bld) [Entitic vol] 10 fL 9.5 - 13.5 fL [facility] TBH EO # 0.2 [facility] TBH PLT 248 [facility] TBH RBC 4.85 [facility] TBH WBC 4.8 [facility] Urine Cultureon 06-28-2024 Bacteria identified Cx Nom (U) No Growth 2 Days PERFORMED BY: [facility] [address] [place] [address] PATHOLOGIST MARBLE HELPER DEVIN HEREDIA M.D. Normal [facility] Comment on above: Performed By: #### V AGINITIS+ #### [facility] , #### CUU #### [facility] [address] Vaginitis Plus (VG+)on 06-28 Atopobium Vaginae High - 2 Critically abnormal . [facility] Comment on above: Result Comment: This test was developed and its performance characteristics determined by [facility]. It has not been cleared or approved by the Food and Drug Administration. Performed By: #### V AGINITIS+ #### [facility] , #### CUU #### [place] [address] [place] BVAB2 Low - 0 Normal . [facility] Comment on above: Result Comment: This test was developed and its performance characteristics determined by [facility]. It has not been cleared or approved by the Food and Drug Administration. Performed By: #### V AGINITIS+ #### [facility] , #### CUU #### [place] [address] [place] Demetra Albicans, CYNDEE Negative Normal Negative [facility] Comment on above: Result Comment: This test was developed and its performance characteristics determined by [facility]. It has not been cleared or approved by the Food and Drug Administration. Performed By: #### V AGINITIS+ #### [facility] , #### CUU #### [place] [address] [place] Demetra Glabrata, CYNDEE Negative Normal Negative [facility] Comment on above: Result Comment: This test was developed and its performance characteristics determined by [facility]. It has not been cleared or approved by the Food and Drug Administration. PERFORMED BY: [place] [address] PATHOLOGIST MARBLE HELPER DEVIN HEREDIA M.D. Performed By: #### V AGINITIS+ #### [facility] , #### CUU #### [place] [address] [place] Chlamydia Trachomotis, CYNDEE Negative Normal Negative [facility] Comment on above: Performed By: #### V AGINITIS+ #### [facility] , #### CUU #### [address] Megasphaera Low - 0 Normal . [facility] Comment on above: [...] AGINITIS+ #### [facility] , #### CUU #### [address] Neisseria Gonorrhoeae, CYNDEE Negative Normal Negative [facility] Comment on above: Result Comment: Perf ormed at: =G - [facility] [address] [id number] 4Th Grade Math Teacher: Lilia Sheets MD, Phone: [phone] Performed By: #### V AGINITIS+ #### [facility] , #### CUU #### [address] Tric Vag CYNDEE Negative Normal Negative [facility] Comment on above: Performed By: #### V AGINITIS+ #### [facility] , #### CUU #### [address] ABD/PELVIS WO CONon 11-22 CT [...] by: HUSSEIN YOUSIF Date: 2022-11-22 01:01 Normal [facility] Urinalysis - AUTOMATEDon Appearance (U) clear [employer] Other Bilirubin Ql (U) Negative [employer] Other Color (U) light yellow [employer] Other Glucose Ql (U) Negative [employer] Other Hemoglobin Ql (U) Negative InVision oaDataCoup Other Ketones Ql (U) Negative [employer] Other Leukocyte esterase Test strip Ql (U) trace [employer] Other Nitrite Ql (U) Negative [employer] Other pH (U) 7.0 [pH] [employer] Other Protein Ql (U) Negative [employer] Other Specific gravity (U) [Rel density] 1.015 [employer] Other Urobilinogen (U) [Mass/Vol] 0.2 mg/dL [employer] [facility] Other Urinalysis - AUTOMATED No rt BidRazor Other CT HEAD WO CONon 10-30-2022 CT [...] BIBI WELLS Date: 2022-10-30 10:16 Normal [facility] ER URINE PROFILEon 2 Bilirubin Ql (U) Negative Normal NEGATIVE [facility] Comment on above: Performed By: #### P REGCHELSEA Gerardo, UMICRO ####[facility] [address] [place], [place] [address]Dr. Geetha Díaz Clarity (U) CLEAR Normal CLEAR [facility] Comment on above: Performed By: #### P REGU ERUR, UMICRO ####[facility] [address] [place] [address]Dr. Geetha Díaz Color (U) LT. YELLOW Normal YELLOW [facility] Comment on above: Performed By: #### P REGU, ERUR, UMICRO ####[facility] [address] [place] [address]Dr. Geetha MAYORGAAHD A micrscopic examination will be performed if indicated. Normal [facility] Comment on above: Performed By: #### P REGU, ERUR, UMICRO ####[facility] [address] [place] [address]Dr. Geetha Díaz Glucose Ql (U) Negative Normal NEGATIVE [facility] Comment on above: Performed By: #### P REGU, ERUR, UMICRO ####[facility] [address] [place] [address]Dr. Geetha Díaz Hemoglobin Ql (U) Negative Normal NEGATIVE [facility] Comment on above: Performed By: #### P REGU, ERUR, UMICRO ####[facility] [address] [place] [address]Dr. Geetha Díaz Ketones Ql (U) Negative Normal NEGATIVE [facility] Comment on above: Performed By: #### P REGU, ERUR, UMICRO ####[facility] [address] [place], [place] [address]Dr. Geetha Díaz LEUKOCYTES TRACE Abnormal NEGATIVE [facility] Comment on above: Performed By: #### P REGU, ERUR, UMICRO ####[facility] [address] [place], [place] [address]Dr. Geetha Díaz Nitrite Ql (U) Negative Normal NEGATIVE [facility] Comment on above: Performed By: #### P REGU, ERUR, UMICRO ####[facility] [address] [place], [place] [address]Dr. Geetha Díaz pH (U) 6.5 [pH] Normal 5-9 [facility] Comment on above: Performed By: #### P REGU, ERUR, UMICRO ####[facility] [address] [place] [address]Dr. Geetha Díaz SPEC GRAVITY 1.015 Normal 1.005-<=1.02 5 [facility] Comment on above: Performed By: #### P REGU, ERUR, UMICRO ####[facility] [address] [place] [address]Dr. Geetha Díaz UA PROTEIN Negative Normal NEGATIVE/ TRACE [facility] Comment on above: Performed By: #### P REGU, ERUR, UMICRO ####[facility] [address] [place] [address]Dr. Geetha Díaz UR MICRO IND INDICATED Normal [facility] Comment on above: Performed By: #### P REGU, ERUR, UMICRO ####[facility] [address] [place] [address]Dr. Geetha Díaz Urobilinogen Qn (U) 0.2 {Prerna'U}/dL Normal 0.2 - 1. 0 [facility] Comment on above: Performed By: #### P REGU, ERUR, UMICRO ####[facility] [address] [place] [address]Dr. Geetha Díaz URon 06-16-2022 , QUAL Negative Normal NEGATIVE [facility] Comment on above: Performed By: #### P REGUTIERRAR UMICRO #### [facility] [address] [place] [address] [address] Geetha Díaz URINE MICROSCOPIC ONLYon BACTERIA TRACE Abnormal NONE SEEN [facility] Comment on above: Performed By: #### P REGU ERUR, UMICRO ####[facility] [address] [place] [address]Dr. Geetha Díaz Bacteria identified Cx Nom (U) NOT INDICATED Normal [facility] Comment on above: Performed By: #### P REGU ERUR, UMICRO ####[facility] [address] [place] [address]Dr. Geetha Díaz CAST NONE SEEN Normal NONE SEEN [facility] Comment on above: Performed By: #### P REGU ERUR, UMICRO ####[facility] [address] [place] [address]Dr. Geetha Díaz Crystals LM Nom (Urine sed) NONE SEEN Normal NONE SEEN [facility] Comment on above: Performed By: #### P REGU, ERUR, UMICRO ####[facility] [address] [place] [address]Dr. Geetha Díaz Epithelial cells LM Ql (Urine sed) FEW Abnormal NONE SEEN /RARE [facility] Comment on above: Performed By: #### P REGU, ERUR, UMICRO ####[facility] [address] [place], [place] [address]Wk. Geetha Díaz MUCOUS NONE SEEN Normal NONE SEEN [facility] Comment on above: Performed By: #### CHELSEA CORONADO UMICRO ####[facility] [address] [place], [place] [address]Rj. Geetha Díaz RBC 2-5 Abnormal 0-2 [facility] Comment on above: Performed By: #### CHELSEA CORONADO UMICRO ####[facility] [address] [place], [place] [address]Qf. Geetha Díaz WBC 2-5 Abnormal NONE SEEN [facility] Comment on above: Performed By: #### CHELSEA CORONADO UMICRO ####[facility] [address] [place], [place] [address]Rg. Geetha Díaz XR RIBS RT PA Bhavana 2 XR RIBS RT PA CH EXAMINATION: XR RIBS RT PA CH REASON FOR EXAM: Pain. COMPARISON: 01/07/2022. TECHNIQUE: 4 views. FINDINGS: Lungs are clear. Cardiomediastinal shadows are normal. No pneumothorax or effusion. No right-sided rib fracture. IMPRESSION: Negative x-rays of the chest and right ribs. Electronically authenticated by: SIMIN RICO Date: 2022-06-16 18:42 Normal [facility] Coding Summary.on 02-10-2022 Coding Summary. CD:[id number] Gh0bWw+PGhlYWQ+PE1FV IMpL53rlSVpwN8LB8zSD E7YOFXPUYTSVE1VEJ9bm VQ0YXndX6DcfzXi NckphDPpLQ12ORh7XES9 rMifCWowqX7glMZkC0e0 ZkWzFN29hG12PBmjYHQj UfE7EkHbjhcfqLVj K2gjZyKzfHFeJxn+PHRh YmxlIHdpZHRoPScxMDAl FjKzuLqhTW5xZg8aPYSt LWNvbGxhcHNlOiBj a3vfRUSrMEsoKS3ssWgb J6RkzGO5AJSbf5t6Yz71 dHI+RLSfGKX8oJpePNsa o066GcTjd7nwNGU1 gODjSIseRYZ0I80or9I0 YCYgEEVeOBJ0tPI3hJ5i lEherbgsP5XgvUVcEzV9 CCZ7sCHsaN1mgBed tngceO8iJln+I75WUW0B GVJBLG2SObq0T0ZuIdif dHI+MP40ZURmAQ99lCXh oQSuc2sjzOw3XfXl NBMzIHD8oMkkYDvks7Yn QJIvF43ccLMkv1V3GIWe oCiizCXnPgVorHG8vC0v FOjqjlqfm7ygcxlz Njjgt4honn85aR82O46s UNfzSRNsWEF1YJTcWHBd uApjtf2kuE4pHp5+IDxj m0yjq1snoOw2RpIm HTHfstAkzZruIHN4l0Nc Mr73C7HgeJzpl7QvJve3 qy63xBQbs0C3pUE9YBbt GLYlyY1rDRmmNcB7 SNIiWlIwpK45oVZqOOad Bi4rfOwjgZwtFU7iSBUa fydvRFHaqI5gBEYwbMHx eHtbJV4vEKTuqhln x125EpMlWFF8PFVksOFv G5LvnK9zVhIaWZYdNFTi Q4TiuCZkQDhxN230CTpn EmZ6SHIvzpFoH8Tn NLBbpOuvTgY7o1U5Lb8X z2WjsbojFNO7OLphDCN4 UrZ1ElVrDgD7Q9AdFch7 QAChjWweNE2bL9Gf PHFgvidmtpkefUD5RSTj DRKubD61eXZaNYlhHi7h a1K9x686NVWuXBSwaV57 Dx2zyWgiWCGmgGBO sU7hytfbq5gczcadBzTi EDPiVLr0HIp0EIZpgNuh GxBkZXQ7NoL0IVM5mLDr pL1utZlvqidfsN8v Oyc+N09emF1mQEM8FOY0 prxvPYNfzrWlLJ75NQ35 J9PqHhiwyDImsBM+PGRp utXxyPckCM7qZkKg e1reo2WhIBavZ6UmUGDi FXefHiz4QWKaMQR6yPV6 zM7cTZNuIPiqa7J3nBE2 S9GzxsXjel8bl1hx MKUcABnmS62bzZAaf5P7 FBDlkIX3PECyrAmwDlQu dZ38Fvh+DSXqmCtrl6Hk Fjmcb6whg7iapVu4 IjMwJSIgdmFsaWduPSJ0 e7MtBi38P03vYQdkCTBv XMHmQPNoNYLtvFlsmg7v sL0nOs7+PGNvbCB3 fYI0iY5fSKGeQmR7OKsq A962AtOiyCXjKrcwi1mu u0duhVc9CnDaIETacrDr aXypVXP6h1VsAy33 B63iETjdQOVnDOYuSNTd NVZvfPeitm8qhB0kOu0+ BQ4fd3vtsh64mM89qOR+ MSEdZPK0vIeoJMyi QNIgeC7hBFrlIoR7LNEg ZuSfnF11sPUiZQjxNk2l kRmamAbfYD6rCLQustag n485JjEij8fuKEAm xFWsMArsXWN7W69qm8C8 YROiWIOoZKJ2jFH0rP5i bGlnbjogbGVmdDsgdmVy aJgtNRmrZThhK825 IHRvcDsnPlBhdGllbnQg EtThDAo4L3OpJsm4WMBi jMfnNZ9mhMTuVGrtCx7h iBadaWbyIZ0wCDUe ybuog401MyYrh7mnADLl eFJwEBpsYRR4E45lj4C9 ZHGsFLWyHIS8aMB4sW1n bGlnbjogbGVmdDsg wbQjbYviHEilSSgiB751 IHRvcDsnPkJpcnRoIERh zDG5UB15DY56yYQks3X5 zQR0Q6WsTOSzqvno qzuhuXI0CHQoSBQypR56 Xc0pqVqmWn4xOGMcMZI6 ESXevKYhV6PuuS7yVkRe IZTeCEEcG4IecKZx CHowT993WNexOlL9XUQy isSrR7ZyWUHpcNzeWnD8 l2S2Lo5UG5W4RA31WT16 uCNzp3Q1eZS2V4Re KUNosdlaiyfovUM7CRZa NGIzyV18Ln5xjXnzFw1u WJTwHIX7QDNflWYkC0Pq jT8bJtZnVOAsVUSj R1ChbZRuDVlsO353RHcq YoV0KLGydjZrF2WaZDCz gSjiCdJ3y5G6Gg6LGWw4 CT87MW00uLYvl8X9 pXU2A8JsNIPdgdbtbqcd wST5FLJsJVGjlT27Ee2l yWkmLg5gAQYyADN2YAGq rMUnT7FhzM9kAeUu MJDbZOHsJ7VxnZHzSBsa R284SVnhRhH5QPGkvuYb I6SqVSIwkDpcLdK1v4U6 Kj2QXBDbJP61VDR7 vFQ6BI17GB84M8GnEkkb dGFibGU+PHRhYmxlIHdp ZHRoPScxMDAlJyBzdHls IE3dMf4iSIYhONMh tFfodCElYlXko3ldWIAo ZLwwWF6xzJplJ9YjdAI5 WJAin5y3Rb88M80oD3Uc dXA+ISFkuJY8cTU7 zT0vMnGxZeD7BNrtX857 ZeOtpIZhKvaan8xwv1gb pOy3WgH5DTQwqeMcoOwz IUT0x0YrVq64Q31k IHdpZHRoPSIxNSUiIHZh fEnyjx0pyV5zAo7+PGNv dXR0fEM8dG4ePeYwJyU1 SYlkJ101VbOobOAf Ahdaj0txz9lihXa2BiHu JRFwkrIjuPsuZWN5g1Gf Km90A4WzpIjkc7KbIpc7 fk48hWEeb9N1zJY8 N5VoUIZliqiybZYfzGho TF6uEXCzgjesVTBltZ6f TDBaD8w4QyRoVaQ0QXvg Y4IsukR2KQHqdMGq HWemNBB4J33ep8W7HBMf WTTxNNF7kDU3qJ3esRgn bjogbGVmdDsgdmVydGlj WCgySKmiG245BDSc gGbpLXMekJ5xXYTjmWJt sBkqUQ4aOYDdveclLkOS X2IZFrijEYyHMWpNQO30 P8AbGzt1ZNUtnZcy VO9ssRJxGXbkEj1ikZfn mAstYR7kPUNymdvcYGRv xV7lALOvvOGamVboQB3u YAWemmveu590LfYu DHQ7VUVakZDzK0VyxO6m PtTkXLHfOBPuR3TueLMx MGmxG113DStjObT7MPDf tdOoZ5UaHOKgeCjh RdG1c2O1Au1gMT0eCH9m VFIfGK99IO79fDZuv1F3 lKV6R7JrMMZjytdnwxnv fRC6UZWbTYBnxS52 cMOeKCxhSz2sv9K2y393 LTCyDYKafK81Ck1jzCrd IQDabFQVpN2qmtfaf5ph cjogIzAwMDAwMDt0 PRk7OKNgtSuvUpKlSSU8 UyO2WAU4uDPbrT5pvHex vbzjwV4uZoc+MjAgWWVh pbR4P4UyMlq8KNGq uVlmBE5puOYtOIveBd4v jJftlJoxDZ2aKWNilqgz CQZyrM7lOYClbDYfjBsi AK5wUFGogldiv933 CeUhHXX0LLNexXDnS2Zo sC1qEkGpZBAsVUDeN3Wu kFCsDEneR871EZxsMeR5 AMPxnrUnO4PxIGCk kPhpPoQ0h0R4Br3IQA4i oVO6G8QiUjb4RKRoaUtl NI8doJDmFCuqAn0amPmx pWdoLS0xOIMapayq HQOscN0yLEJkbMKiqIyv LK5fXTIlehavq291HlKe WGF9CUUycMTaY0LlyC0j SgBiZTYfVYYuM5Mh hLYcBJmgX373ISooDrU8 PMKxtoElI3NeDTHzpXlw OyL9e3H3Th1XuJCkWORv CB66UE96UN83T2Tn PjwvdGFibGU+PHRhYmxl IHdpZHRoPScxMDAlJyBz xPjzXT2oQo3cXIHoDHBk vTzbtDTiThNoe2pl AVMlZTkfWA4mlLbaP1Mn wNL2LQLrg3b1Aa21N51z X5GopCD+ZNMjoIC7rWN6 iK6fVbNrNxN5VIbc A741KeUklKRhVcrhc7dc y2okyHy0ZzZhMEKhgoJr sWsiYPC4a4EoOy92G74t IHdpZHRoPSIyMCUi MUFduNhuwc2cmP1gOl5+ WBPmrXE1mRD7sF8zYfEo GcK2TQudX831GxZczRPy HhzhY50yZ3KoaDH+ YGVjRab8JWFlvAjhKC8q oKAyUYrbPb8vTIM2PaJb IfTyHKzzH1PkCIAcyojl uhyjbBM7DYVqRPOp qC92Ne2ruIdxCo5jIAZe FIP4QHNhpBMzG0JpdS2f HzEoFDChAQFyQ2TizRQk DYosE955WLryRsA5 BWIbjaNmU8NjSBHxtImo HaF7d4G5Yz4CjBuyjLXj QE7xXqEiJTu0G9AkJji9 VNZmgKbvQB1cvBCl ZWcgLv6nwNxmwLxwLA9o PTWqxturz720RbLrd1un MEYclPOwOJyaWVV0N27w k8V0FJNlCKKfGAC0 tQR3jA1vwLnjkdihlGBf dDsgdmVydGljYWwtYWxp L077HVGxfZytPhRITqr3 F4AzDnq2FWRreGho EI3vjWTgGVpnIq8tpBlu rNwrLD2uYUQqwfedo177 HpSos4gyFLKmaZWcYZqe YUL8G19ob6Z9AHZf EEStNNE9wUE4vT0wzEwz bjogbGVmdDsgdmVydGlj GFtwHQxqU918DPPnkQwm Tn8XVfn6Z5ToUvr0 WNEraAwdZX5dwMBcMKde Tb0cvPgbnKniIR5mYAIp xcnpg332KjEmp3dgWBUa iMOzYOknKHF9N30v b6Y2UZKdBUNdJFX9sAS3 oV9uhDxlqgdqqDTqnIge exAlcNlxEUxoEOqsX676 IHRvcDsnPlBheWVy OjwvdGQ+DX81zd15T1Ti NqzvIlb8ORKkCJM1lWN5 wA4cEHRpDRcye9N8fAE1 E3EuxtBbcs3no2sb YXBz (more content not included)... [facility] Physician Orderon 02-10-2022 Physician Order [id number] #1.00CD:127 [facility] Consent for Treatmenton 01-16 Consent for Treatment [id number] #1.00CD:127 Normal [facility] Physician Orderon 02-04-2022 Physician Order [id number] #1.00CD:127 Normal [facility] Coding Summary.on 01-15-2022 Coding Summary. CD:[id number] Gh0bWw+PGhlYWQ+PE1FV SEaL71wzBQvyC3JM6mJJ R6MOPSWEOUQPR8BOF4wp UH3ETarI6UtqjUs UxxbdLTtRH56YTd3DED9 lBxuJBglqQ3tyMPjE3g9 LjFwDS73xB72OIyyPHEo MjS0CzJzxjmqkQBl Q8aaWnAkyIBbQif+PHRh YmxlIHdpZHRoPScxMDAl AbMobEgdQY1oIw0aOWVw LWNvbGxhcHNlOiBj a7ngABHyEMytDL1cgZgb F6JelFK2WSItc4c2Av81 dHI+ZHUgGWD9nRryQLdh s544BaHtv7vjKJJ6 vIMcWOilDCM2R94fo6F9 OHNzYTRoFNA7sND7hY3r eModxtjdN0CffYEyUtO3 VCL3qEDatP1jhYmm koroeH2nYzl+H20DJN5V JRBNYA3TWvy0O5MlLssh dHI+RH86CYGgEQ06vFDc dKTcs8wmqNl9YqQw ENXmBUJ3kXlyDIrht5Cv TMFiM80jqBZab1J3RATd cAxxjPUnXzEsoUC0fM5z YCsfoghnn1bwdgvy Fgvhf7fxba88dX41C00x UWuxYYHbTWZ8CWYtEOSu sFomeg2yqE2gDm0+IDxj s5xxr0jnwJv3BwHu EGItjiBhaTeqREB9j3Ce Mg84S2AfwJngw7XaMyw9 oh78dGVnh5L9bPV9WWgd BFNgdH7eAPfyXmG7 VFZhKaGlaP65sYPcEVfa Vq4fyWnbrIcqLU7eIWVr hvwvPOYggK4tGISdrHWv cJjzSC6nXVOehbhz e606YmJsREZ8OSEbrLMq R6JoaS6yEoOpDUXvJOZn V0OlhBTwVFmqK575RCbo WjM3KZXrcpVwP6Xd OIAphDodRtU9e1E9Pt0X e0XiivbfJVE3RQxtKNV6 QhZlQiQnSaU0X3YrIxo1 DJHmyWjgYY6bF8Mx JOEhulcsljqpsWU8QZZz VTSeyK98vIEnKEqdAv5i a9H2r554XEXuWDVtiA07 Zo3nrUwpUQMgxHVO sI1fjohzd0ocpeqxLyFr WFBgNMc7FOh5BCEcqSaq VlNbBNM7RaF3DIN1sJOk kC9ecSvdewdesO5f Oyc+W97ykN5bXYE4SOY7 eiaoZZKyheEwHM52MJ11 M8DvGktqzQZuhCD+PGRp kgYsfEabEM4gSwHa w8gjb7IjCBdkU0RqHWFa XXigCjw0WKIyTJR8fNZ9 rP3qOFLpPDfse1F8rRQ3 J0PseaGfgb3qf1mq QINoMDoiY10hyHLif8O6 CPUdqAE4ZYTpeEjaMxOr oS75Dqq+BHGwyFidc9Zd Zkqce7elp4rmyXe0 IjMwJSIgdmFsaWduPSJ0 r5YsSj51M37mEPyxUOHb MBDmLFZlCPHhxDkbcq1p oU2xGw4+PGNvbCB3 vWQ2fH5dTPCcJbY4MLnx Q227KcIatRKiZobdi7lg e6ndhUe6KcYaJFHviqNg zVizGKY6d9WoAb84 A51jWKfmVRRkMZYeOXFq EWUphWqgpx5ryU0rCa1+ CP5fe9hsxi20wX39yQW+ CTLpUNT6fNhdJNes DFBjkT4eZJaaMpO5GMJi KsOniJ28uGGhFRqcFp6c yYaagKrmTY6nHUIsjdjd x782FfWib9euFIAi sGMeLRtlKEO5A78yt0Y1 ULFtDTCsEYA6jGC2lZ8v bGlnbjogbGVmdDsgdmVy mOniEEkbRHtbD252 IHRvcDsnPlBhdGllbnQg MkFoWYm3V5MyZry2LMXo jHhsYF9ebVDbOHqbTi3o nCmyqQnsEW6kYPGm hdyls312AxXxl4ivUDNe pXOcFUrhLYX1Z37oc5S5 KESiRQKbSSA0aTW9qY7y bGlnbjogbGVmdDsg ttRkkCvrVBnhCXwzS307 IHRvcDsnPkJpcnRoIERh mHY3EO89YP69oWXyz3G4 kVY7X0NvLJJswdpv ocbjtAL7OLUjWRHykL91 Un1grHjaLn7iVLPaLUY3 JMRydUZaX5UdoY6hQzKe LVEuZCAkU9JbzOXo IXphH483FXurHiX9UTYb bkEoI1JqVVIxgVieRjN8 e2U3Tp1ML5H5GV99OO08 lDPcm2F1lQU2J7Te BDAxqqlqtnobnHH9XSNk KYQbmY83Rg3sqQanDe7z XZVcLLD1UNBvwOArX1Di hK7rHsRxHVApVCIq S4RzjIQmDGvxM373UWbu BtT3KKEeyzNlB4FxWRMh qSafHhX1e1D0Lm0PYZw0 EZ62XT46mAJfb1O7 rRQ1K2DlYXMlcwqzuqzb kDD1BGXrVJMilO53Sh3g rNiqPp4lNBMhGSP0MOGr gQVqZ5FwvD7uHpDi HZUgYJGwJ4DboFXoLBmo E864ZKldCyG2AQIjclFq Q6PsDEKcaMqbAlU8z3Q8 Hi2URINhVU81QPN2 kLE1QZ86JZ49D3SlOrif dGFibGU+PHRhYmxlIHdp ZHRoPScxMDAlJyBzdHls TE1uIl4wGKEnRKJr uCcqwWHdGzSyc5kpRKTg YOxuCV6ooVtcE6HymTN7 VPMbe1y3Jv12X32oD4Wn dXA+IAXlxXV7rRU0 tI2nOhBmTpP4WUjyL169 QeClhNVzCysae7ppu1ex nHp2IaI9ZRXaesVdiUre AGT7p4SrAu76O30a IHdpZHRoPSIxNSUiIHZh mDjfic3yeY9nHo2+PGNv oJM1iYA0hE1iNpVlMfV1 YWpnX408DvYyeRQg Xbzbz5aqj5uphAe5BtOk HPBvdgCmfNbnLJM6z9Uu Qp28Q5IhvAvis2SpJup5 gl88nGIle9L4yGR1 W6PyWFEawibvkOOcbWzn DL9yHMWyxcetEGUthH9l PXJeE0i4UvKxAsE9WRyz E0BbpxG5CYEdiSJq BZvwZCU8W11zk4G7JOCs VCImMLM8xJB4wL2hmUny bjogbGVmdDsgdmVydGlj PKkkMSvaL320ZJUs gJirNWHrvO6cVNNkwFYh hVdjMC7iQQLbhfwiCrLC T1FUCccoBToMWOvCID97 I2ZeNjz2QARqaIcp QF8voZOyZAlkHi4vvSbi aSpuOO7gANBmlwnlRQVy cI0dQJCocVQcvUfpRU3o AFLjpgfkf468BsVd HRH0KWGymECnF6DcgK5m YfXgNEFhTPKqB1SxeMNs WWuhR377SWfcDzQ4URSh bsZxE1BeWYRpxWop VpY7c4W2Yp9fTX8gUV8c EPAlWW16GX65gABye1M5 yYT8B6KuQLFaldyojylf vQM2NSNjSQPvlL31 nRAyEIenNk9ca4K2z872 MNCtEPVuoB65Pc5dlLkr CBXjpHPMiM5schrxw6nq cjogIzAwMDAwMDt0 OHk4LAHpkSudMyKwZQU8 AqQ2UKH5pQKeaG0tlVmj yovcfQ4rSdk+MjAgWWVh icL1F8FyRwq7FXHf sGpzRN8tnWQjCFjcVn3l yFqajPcbRQ9yJVYqqypc XQEamF9uAYOotZDtlFwl OY9jHYCimyvwe659 OeGwEFI5JQVxoAPuZ9Dy xI2fKeZgLNGbCRMeO4Ib sUXsFSidV859GJgrOjL4 PDFjhgPjI1ZyYNIv wTygYuG5c9C9Bs2SUV4e zMR1R5ZsZsf4SOCveJci FE0foTWfYUyjHo6xoRty eEfxBG5kPEUmsxbo UKRowJ1cVXTxzZBdbXgo BA1kTNJexvlxo696DaYo RGI3TTZxcEHbJ1AfnY1p JcXdDNIkJOLeI8Pc eILyWHguQ935YJpjRtN7 WCQzzdGwR8IqKLZqaXmy TnL3b7F8Ma2HGNYvNFSd sCJcMjS6Q2FhTmxs dHI+OH23EFKnNN21mYRy tNWpj7fqjPd2JqOjTQQs ITZ4vQskWMxkh7IpUHAw W81saJYqf0L9JWJb wYdwrEOqZdAxfJF2bZ2s GZlmawypv3cogyqmPkbe n4odjv45nO05J41sWQbv ZHRoPSIzMCUiIHZh tKlbew0wmM4nWo4+PGNv dWY8iUL9oF6uFaFqEhT7 UGooR731ZlGdgJZeYxwg s0hgo4vcbWk2HyZt UWCirePsrGeaPSL7t9Pg Fs34X13oEAgtRNHpYRCm GOQkLLTquVnvhd0nnZ8s Ii8+TG8in9hnal06 fB57zDV+XBUiHCP9aXbh COzmRRMfuK6yRCxtStJ9 VMGyVqGfaU56lZVyGXyw Bp0iqGaggPfuWU3t SWJpudebq335WnNai1le FRYlwWFpXJltDZW3D99r n5E1PFLaDRJqENF3kUZ1 dV3rmNmnzofklZMi dDsgdmVydGljYWwtYWxp V259IZFbsAdiSpUkiZLq R3yyppTHAU2nXbhpgAN+ FIRcSFV5fRsaQYid UKHxmF1uWSEiJ9y7EdXz GaC1LMjkB5GrkyY9FBZn dYFhRGXgsDLMbP2wvqki f4cytdojEjRlLJFf GGt4EFf4PRFffTsdMhKj FIW2ZcK9AYM9nCAqlP6f fLhgucywdZ5cEns+RklO OjwvdGQ+PHRkIHN0 uTcwVEvbAYFiwN9xNKPd R1n8IaBiFbY4KWehU4Wu yhV5EGKcyQBjKNDewVYY sZ1hhfhvw2qvbnbv ZwCoEOLnXDt6PLt0HRLu kVacRlMhKDF3GqJ8FQU9 hYAcaD8rhBzfbsjqaX9c Oyc+TVJOOjwvdGQ+ WBMpLME2eBwkCRvmXPUt pC5ePOJcO1h2UpOgXqL6 CFetU0XzxrV2LIWshFLy MYYasQVEzT4csqos k8tniobvJdUpKQQhSFm2 ANk5XUDgdDaoSeXvCQL4 NnB1KNN4eQNraB7tbMho iqoskL3bLue+UGF5 FTH3AP98NG01M2AyFhxj dGFibGU+PHRhYmxlIHdp ZHRoPScxMDAlJyBzdHls GJ8pJg0sIJWxDFBn bGxh (more content not included)... Normal [facility] NuSwab Vaginitis Plus (VG+)o n 01-09-2022 A. vaginae DNA CYNDEE+probe Ql (Vag fld) Low - 0 Invalid Interpretation Code [facility] Comment on above: Performed By: #### 1 [id number] #### [facility] [address] [place] [address] Bacterial vaginosis associated bacterium 2 DNA CYNDEE+probe Ql (Vag fld) Low - 0 Invalid Interpretation Code [facility] Comment on above: Performed By: #### 1 [id number] #### [facility] [address] [place] [address] C. albicans DNA CYNDEE+probe Ql (Vag fld) Negative Invalid Interpretation Code Negative [facility] Comment on above: Result Comment: This test was developed and its performance characteristics determined by [facility]. It has not been cleared or approved by the Food and Drug Administration. Performed By: #### 1 [id number] #### [facility] [address] [place] [address] C. glabrata DNA CYNDEE+probe Ql (Vag fld) Negative Invalid Interpretation Code Negative [facility] Comment on above: Result Comment: This test was developed and its performance characteristics determined by [facility]. It has not been cleared or approved by the Food and Drug Administration. Performed By: #### 1 [id number] #### [facility] [address] [place] [address] C. trachomatis DNA CYNDEE+probe Ql (Vag fld) Positive Abnormal Negative [facility] Comment on above: Performed By: #### 1 [id number] #### [facility] [address] [place] [address] Megasphaera sp type 1 DNA CYNDEE+probe Ql (Vag fld) Low - 0 Invalid Interpretation Code [facility] Comment on above: Result Comment: Calc ulate [...] developed and its performance characteristics determined by [facility]. It has not been cleared or approved by the Food and Drug Administration. Performed By: #### 1 [id number] #### [facility] [address] [place] [address] N. gonorrhoeae DNA CYNDEE+probe Ql (Vag fld) Negative Invalid Interpretation Code Negative [facility] Comment on above: Result Comment: Perf ormed at: =G [facility] [address] [id number] MD Kortney Rodrigues Performed By: #### 1 [id number] #### [facility] [address] [place] [address] T. vaginalis DNA CYNDEE+probe Ql (Vag fld) Negative Invalid Interpretation Code Negative [facility] Comment on above: Performed By: #### 1 [id number] #### [facility] [address] [place] [address] CBC AUTO DIFFon 01-07-2022 BASO # 0.1 103/ul Normal 0.0-0.1 [facility] Comment on above: Performed By: #### C BC #### [facility] [address] [place], [place] [address] Dr. Geetha Díaz Basophils/100 WBC (Bld) 1.3 % Normal 0.2-2.0 [facility] Comment on above: Performed By: #### C BC #### [facility] [address] [place] [address] Dr. Geetah Díaz EO # 0.1 103/ul Normal 0.0-0.7 [facility] Comment on above: Performed By: #### C BC #### [facility] [address] [place] [address] Dr. Geetha Díaz Eosinophils/100 WBC (Bld) 2.9 % Normal 0.9-7.0 [facility] Comment on above: Performed By: #### C BC #### [facility] [address] [place] [address] Dr. Geetha Díaz Erythrocyte distribution width (RBC) [Ratio] 12.2 % Normal 11.0-15.0 [facility] Comment on above: Performed By: #### C BC #### [facility] [address] [place] [address] Dr. Geetha Díaz Hematocrit (Bld) [Volume fraction] 39.2 % Normal 36.0-48.0 [facility] Comment on above: Performed By: #### C BC #### [facility] [address] [place] [address] Dr. Geetha Díaz Hemoglobin (Bld) [Mass/Vol] 12.8 g/dL Normal 12.0-16.0 [facility] Comment on above: Performed By: #### C BC #### [facility] [address] [place] [address] Dr. Geetha Díaz IG # 0.01 10e3/ul Normal 0.00-0.03 [facility] Comment on above: Performed By: #### C BC #### [facility] [address] [place] [address] Dr. Geetha Díaz IG % 0.2 % Normal 0.0-0.5 [facility] Comment on above: Performed By: #### C BC #### [facility] [address] [place] [address] Dr. Geetha Díaz LYMPH # 1.4 103/ul Normal 1.2-3.8 [facility] Comment on above: Performed By: #### C BC #### [facility] [address] [place] [address] Dr. Geetha Díaz Lymphocytes/100 WBC (Bld) 29.8 % Normal 20.5-60.0 [facility] Comment on above: Performed By: #### C BC #### [facility] [address] [place] [address] Dr. Geetha Díaz MANUAL DIFF REQ NO Normal [facility] Comment on above: Performed By: #### C BC #### [facility] [address] [place] [address] Dr. Geetha Díaz MCH (RBC) [Entitic mass] 29.1 pg Normal 26.7-34.0 [facility] Comment on above: Performed By: #### C BC #### [facility] [address] [place] [address] Dr. Geetha Díaz MCHC (RBC) [Mass/Vol] 32.7 g/dL Normal 29.9-35.2 [facility] Comment on above: Performed By: #### C BC #### [facility] [address] [place] [address] Dr. Geetha Díaz MCV (RBC) [Entitic vol] 89.1 fL Normal 81.0-99.0 [facility] Comment on above: Performed By: #### C BC #### [facility] [address] [place] [address] Dr. Geetha Díaz MONO # 0.4 103/ul Normal 0.3-0.8 [facility] Comment on above: Performed By: #### C BC #### [facility] [address] [place] [address] Dr. Geetha Díaz Monocytes/100 WBC (Bld) 7.7 % Normal 1.7-12.0 [facility] Comment on above: Performed By: #### C BC #### [facility] [address] [place] [address] Dr. Geetha Díaz NEUT # 2.6 103/ul Normal 1.4-6.5 [facility] Comment on above: Performed By: #### C BC #### [facility] [address] [place] [address] Dr. Geetha Díaz Neutrophils/100 WBC (Bld) 58.1 % Normal 43.0-75.0 [facility] Comment on above: Performed By: #### C BC #### [facility] [address] [place] [address] Dr. Geetha Díaz Platelet mean volume (Bld) [Entitic vol] 9.1 fL Critically low 9.5-13.5 [facility] Comment on above: Performed By: #### C BC #### [facility] [address] [place] [address] Dr. Geetha Díaz PLT 278 103/ul Normal 150-450 [facility] Comment on above: Performed By: #### C BC #### [facility] [address] [place] [address] Dr. Geetha Díaz RBC 4.40 106/ul Normal 4.20-5.40 [facility] Comment on above: Performed By: #### C BC #### [facility] [address] [place] [address] Dr. Geetha Díaz WBC 4.5 103/ul Normal 4.0-11.0 [facility] Comment on above: Performed By: #### C BC #### [facility] [address] [place] [address] Dr. Geetha Díaz IRON AND TIBCon 01-07-2022 % SATURATION 27.2 % Normal [facility] Comment on above: Performed By: #### F ETIBC, VITB12, VITAD #### [facility] [address] [place] [address] Dr. Geetha Díaz Iron [Mass/Vol] 86.0 ug/dL Normal 50.0-170.0 [facility] Comment on above: Performed By: #### F ETIBC, VITB12, VITAD #### [facility] [address] [place] [address] Dr. Geetha Díaz TIBC DIRECT 316.0 ug/dL Normal 250.0-450.0 [facility] Comment on above: Performed By: #### F ETIBC, VITB12, VITAD #### [facility] [address] [place] [address] Dr. Geetha Díaz PROF 14(COMP METB)on 022 Albumin [Mass/Vol] 4.1 g/dL Normal 3.4-5.0 [facility] Comment on above: Performed By: #### C MP #### [facility] [address] [address] [address] Geetha Díaz Albumin/Globulin [Mass ratio] 1.1 {ratio} Normal [facility] Comment on above: Performed By: #### C MP #### [facility] [address] [address] [address] Geetha Díaz ALP [Catalytic activity/Vol] 53 U/L Normal 46-116 [facility] Comment on above: Performed By: #### C MP #### [facility] [address] [place] [address] Dr. Geetha Díaz ALT [Catalytic activity/Vol] 15 U/L Normal 14-59 [facility] Comment on above: Performed By: #### C MP #### [facility] [address] [address] [address] Geetha Díaz Anion gap [Moles/Vol] 13.2 mmol/L Normal [facility] Comment on above: Performed By: #### C MP #### [facility] [address] [place] [address] Dr. Geetha Díaz AST [Catalytic activity/Vol] 15 U/L Normal 15-37 [facility] Comment on above: Performed By: #### C MP #### [facility] [address] [address] [address] Geetha Díaz Bilirubin [Mass/Vol] 0.5 mg/dL Normal 0.2-1.0 [facility] Comment on above: Performed By: #### C MP #### [facility] [address] [place] [address] Dr. Geetha Díaz Calcium [Mass/Vol] 9.2 mg/dL Normal 8.5-10.1 [facility] Comment on above: Performed By: #### C MP #### [facility] [address] [place] [address] Dr. Geetha Díaz Chloride [Moles/Vol] 103 mmol/L Normal 98-107 [facility] Comment on above: Performed By: #### C MP #### [facility] [address] [address] [address] Geetha Díaz CO2 [Moles/Vol] 27.9 mmol/L Normal 21.0-32.0 [facility] Comment on above: Performed By: #### C MP #### [facility] [address] [address] [address] Geetha Díaz Creatinine [Mass/Vol] 0.78 mg/dL Normal 0.55-1.02 [facility] Comment on above: Performed By: #### C MP #### [facility] [address] [place] [address] Dr. Geetha Díaz EGFR-AF [place] >60 Normal >=60 [facility] Comment on above: Performed By: #### C MP #### [facility] [address] [address] [address] Geetha Díaz EGFR-NON AF [place] >60 Normal >=60 [facility] Comment on above: Performed By: #### C MP #### [facility] [address] [place] [address] Dr. Geetha Díaz Globulin (S) [Mass/Vol] 3.6 g/dL Normal [facility] Comment on above: Performed By: #### C MP #### [facility] [address] [address] [address] Geetha Díaz Glucose [Mass/Vol] 103 mg/dL Normal 74-106 [facility] Comment on above: Performed By: #### C MP #### [facility] [address] [address] [address] Geetha Díaz Potassium [Moles/Vol] 4.1 mmol/L Normal 3.5-5.1 [facility] Comment on above: Performed By: #### C MP #### [facility] [address] [place] [address] Dr. Geetha Díaz Protein [Mass/Vol] 7.7 g/dL Normal 6.4-8.2 [facility] Comment on above: Performed By: #### C MP #### [facility] [address] [address] [address] Geetha Díaz Sodium [Moles/Vol] 140 mmol/L Normal 136-145 [facility] Comment on above: Performed By: #### C MP #### [facility] [address] [place] [address] Dr. Geetha Díaz Urea nitrogen [Mass/Vol] 14.0 mg/dL Normal 7.0-18.0 [facility] Comment on above: Performed By: #### C MP #### [facility] [address] [place] [address] Dr. Geetha Díaz Urea nitrogen/Creatinine [Mass ratio] 17.9 mg/mg Normal [facility] Comment on above: Performed By: #### C MP #### [facility] [address] [place] [address] Dr. Geetha Díaz VITAMIN B12on 01-07-2022 Cobalamin (Vitamin B12) [Mass/Vol] 613.0 pg/mL Normal 193.0-986.0 [facility] Comment on above: Performed By: #### F ETIBC, VITB12, VITAD #### [facility] [address] [place] [address] Dr. Geetha Díaz VITAMIN D 25 OHon 01-07-2022 VIT D 25-OH 16.3 ng/mL Normal [facility] Comment on above: Performed By: #### F ETIBC, VITB12, VITAD #### [facility] [address] [place] [address] Dr. Geetha Díaz VIT D RANGES SEE BELOW Normal [facility] Comment on above: Result Comment: <20 ng/mL Vit D deficient 20 - <30 ng/mL Vit D insufficient 30 - 100 ng/mL Vit D sufficient >100 ng/mL Potential Toxicity Performed By: #### F ETIBC, VITB12, VITAD #### [facility] [address] [place] [address] Dr. Geetha Díaz XR CHEST 2 Von [...] by: MATEUS PETIT Date: 2022-01-07 17:49 Normal [facility] Physician Orderon 01-06-2022 Physician Order [id number] 3#[id number]:[id number] Normal [facility] Test, Urineon 08-18 Beta HCG ( test) Ql (U) Negative [employer] Other Urinalysis - AUTOMATEDon Appearance (U) clear [employer] Other Bilirubin Ql (U) Negative [employer] Other Color (U) dark yellow [employer] Other Glucose Ql (U) Negative [employer] Other Hemoglobin Ql (U) Negative [employer] Other Ketones Ql (U) 15 [employer] Other Leukocyte esterase Test strip Ql (U) Negative [employer] Other Nitrite Ql (U) Negative [employer] Other pH (U) 7.0 [pH] [employer] Other Protein Ql (U) Negative [employer] Other Specific gravity (U) [Rel density] >1.030 [employer] [facility] Other Urobilinogen (U) [Mass/Vol] 0.2 mg/dL [employer] Other Urinalysis - AUTOMATED No rt [employer] Other Vital Signs Date Time Vital Sign Value Performing Clinician Facility 04-06-2025 10:13-0400 Body height 149.86 cm Joy Wooten MD Work Phone: [facility] 04-06-2025 10:13-0400 Body mass index (BMI) [Ratio] 18.4 kg/m2 Joy Wooten MD Work Phone: [facility] 04-06-2025 10:13-0400 Body weight 41.41 kg Joy Wooten MD Work Phone: [facility] 04-06-2025 10:13-0400 Diastolic blood pressure 64 mm[Hg] Joy Wooten MD Work Phone: [facility] 04-06-2025 10:13-0400 Heart rate 63 /min Joy Wooten MD Work Phone: [facility] 04-06-2025 10:13-0400 Systolic blood pressure 94 mm[Hg] Joy Wooten MD Work Phone: [facility] 02-08-2025 10:59-0400 Body height 149.9 cm Ayana Ruelas [employer] BIOLOGY TECHNICIAN Work Phone: [facility] 02-08-2025 10:59-0400 Body mass index (BMI) [Ratio] 18.38 kg/m2 Ayana Ruelas WILDLIFE BIOLOGY TECHNICIAN Work Phone: [facility] 02-08-2025 10:59-0400 Body weight 41.28 kg Ayana Ruelas WILDLIFE BIOLOGY TECHNICIAN Work Phone: [facility] 02-08-2025 10:59-0400 Diastolic blood pressure 68 mm[Hg] Ayana Ruelas WILDLIFE BIOLOGY TECHNICIAN Work Phone: [facility] 02-08-2025 10:59-0400 Heart rate 78 /min Ayana Ruelas WILDLIFE BIOLOGY TECHNICIAN Work Phone: [facility] 02-08-2025 10:59-0400 Respiratory rate 16 /min Ayana Ruelas WILDLIFE BIOLOGY TECHNICIAN Work Phone: [facility] 02-08-2025 10:59-0400 SaO2% (BldA) [Mass fraction] 98 % Ayana Ruelas WILDLIFE BIOLOGY TECHNICIAN Work Phone: [facility] 02-08-2025 10:59-0400 Systolic blood pressure 100 mm[Hg] Ayana Ruelas WILDLIFE BIOLOGY TECHNICIAN Work Phone: [facility] 12-07-2024 16:46-0400 Body mass index (BMI) [Ratio] 18.18 kg/m2 Lynda Traviserly WILDLIFE BIOLOGY TECHNICIAN Work Phone: [facility] 12-07-2024 16:46-0400 Body weight 40.82 kg Lynda Velasco WILDLIFE BIOLOGY TECHNICIAN Work Phone: [facility] 12-07-2024 16:46-0400 Diastolic blood pressure 60 mm[Hg] Lynda Velasco WILDLIFE BIOLOGY TECHNICIAN Work Phone: [facility] 12-07-2024 16:46-0400 Systolic blood pressure 90 mm[Hg] Lynda Velasco WILDLIFE BIOLOGY TECHNICIAN Work Phone: [facility] 11-01-2024 11:40-0400 Body mass index (BMI) [Ratio] 18.95 kg/m2 Hermelindo Yoselin DO Work Phone: [facility] 11-01-2024 11:40-0400 Body weight 42.55 kg Hermelindo Yoselin DO Work Phone: [facility] 11-01-2024 11:40-0400 Diastolic blood pressure 68 mm[Hg] Hermelindo Yoselin DO Work Phone: [facility] 11-01-2024 11:40-0400 Systolic blood pressure 104 mm[Hg] Hermelindo Yoselin DO Work Phone: [facility] 10-11-2024 08:50-0500 Body mass index (BMI) [Ratio] 19.35 kg/m2 Hermelindo Yoselin DO Work Phone: [facility] 10-11-2024 08:50-0500 Body weight 43.45 kg Hermelindo Yoselin DO Work Phone: [facility] 02-25-2025 08:50-0500 Diastolic blood pressure 72 mm[Hg] Hermelindo Yoselin DO Work Phone: [facility] 10-11-2024 08:50-0500 Systolic blood pressure 110 mm[Hg] Hermelindo Yoselin DO Work Phone: [facility] 09-13-2024 13:04-0500 Body height 149.9 cm Marcus Villanueva MD Work Phone: [facility] 09-13-2024 13:04-0500 Body mass index (BMI) [Ratio] 19.19 kg/m2 Marcus Villanueva MD Work Phone: [facility] 09-13-2024 13:04-0500 Body weight 43.09 kg Marcus Villanueva MD Work Phone: [facility] 09-13-2024 13:04-0500 Diastolic blood pressure 72 mm[Hg] Marcus Villanueva MD Work Phone: [facility] 09-13-2024 13:04-0500 Heart rate 68 /min Marcus Villanueva MD Work Phone: [facility] 09-13-2024 13:04-0500 SaO2% (BldA) [Mass fraction] 98 % Marcus Villanueva MD Work Phone: [facility] 09-13-2024 13:04-0500 Systolic blood pressure 102 mm[Hg] Marcus Villanueva MD Work Phone: [facility] 06-28-2024 13:50-0500 Body height 149.[address] [facility] 06-28-2024 13:50-0500 Body mass index (BMI) [Ratio] 19.4 kg/m2 [facility] 06-28-2024 13:50-0500 Body temperature 96.4 [degF] [facility] 06-28-2024 13:50-0500 Body weight 43.[address] [facility] 06-28-2024 13:50-0500 Diastolic blood pressure 74 mm[Hg] [facility] 06-28-2024 13:50-0500 Heart rate 74 /min [facility] 06-28-2024 13:50-0500 Respiratory rate 18 /min [facility] 06-28-2024 13:50-0500 SaO2% (BldA) [Mass fraction] 98 % [facility] 06-28-2024 13:50-0500 Systolic blood pressure 118 mm[Hg] [facility] 11-18-2022 15:10-0400 Body height 149.86 cm Marily Vega Other [facility] Other 11-18-2022 15:10-0400 Body mass index (BMI) [Ratio] 16.36 kg/m2 Marily Vega Other [facility] Other 11-18-2022 15:10-0400 Body temperature 98.2 [degF] Marily Vega Other [facility] Other 11-18-2022 15:10-0400 Body weight 36.74 kg Marily Vega Other [facility] Other 11-18-2022 15:10-0400 Respiratory rate 18 /min Marily Vega Other [facility] Other 11-18-2022 15:10-0400 SaO2% (BldA) [Mass fraction] 99 % Marily Vega Other [facility] Other 02-07-2022 15:00-0400 Body temperature 96.98 [degF] Ermelinda GALEANO [facility] 02-07-2022 15:00-0400 Diastolic blood pressure 78 mm[Hg] Ermelinda GALEANO [facility] 02-07-2022 15:00-0400 Heart rate 89 /min Ermelinda GALEANO [facility] 02-07-2022 15:00-0400 Systolic blood pressure 110 mm[Hg] Ermelinda GALEANO [facility] 02-07-2022 12:19-0400 Blood Pressure Location Ermelinda GALEANO [facility] 02-07-2022 12:19-0400 Body temperature 97.88 [degF] Ermelinda GALEANO [facility] 02-07-2022 12:19-0400 Diastolic blood pressure 71 mm[Hg] Ermelinda GALEANO [facility] 02-07-2022 12:19-0400 Heart rate 92 /min Ermelinda GALEANO [facility] 02-07-2022 12:19-0400 Mean blood pressure 82 mm[Hg] Ermelinda GALEANO [facility] 02-07-2022 12:19-0400 Respiratory rate 16 /min Ermelinda GALEANO [facility] 02-07-2022 12:19-0400 SaO2% (BldA) [Mass fraction] 99 % Ermelinda GALEANO [facility] 02-07-2022 12:19-0400 Systolic blood pressure 104 mm[Hg] Ermelinda GALEANO [facility] 09-07-2021 14:35-0500 Body height 149.86 cm Niharika Valencia Other [facility] Other 09-07-2021 14:35-0500 Body mass index (BMI) [Ratio] 16.36 kg/m2 Niharika Valencia Other [facility] Other 09-07-2021 14:35-0500 Body temperature Niharika Valencia Other [facility] Other 09-07-2021 14:35-0500 Body weight 36.74 kg Niharika Valencia Other [facility] Other 09-07-2021 14:35-0500 Diastolic blood pressure 61 mm[Hg] Niharika Valencia Other [facility] Other 09-07-2021 14:35-0500 Respiratory rate 18 /min Niharika Valencia Other [facility] Other 09-07-2021 14:35-0500 SaO2% (BldA) [Mass fraction] 98 % Niharika Valencia Other [facility] Other 09-07-2021 14:35-0500 Systolic blood pressure 99 mm[Hg] Niharika Valencia Other [facility] Other Encounters Encounter Date Encounter Type Care Provider Facility Start: 04-06-2025 End: 04-06-2025 ambulatory NON STAFF [facility] Work Phone: Start: 04-06-2025 End: 04-06-2025 Patient encounter procedure Joy Wooten MD -[facility]ly [facility] Work Phone: Start: 02-08-2025 End: 02-08-2025 Bamboo flowsheet Ayana Ruelas WILDLIFE BIOLOGY TECHNICIAN Work Phone: [facility] Start: 02-08-2025 End: 02-08-2025 Bamboo flowsmauri Ruelas WILDLIFE BIOLOGY TECHNICIAN Work Phone: [facility] Start: 02-08-2025 End: 02-08-2025 Office outpatient visit 25 minutes Ayana Ruelas WILDLIFE BIOLOGY TECHNICIAN Work Phone: [facility] Comment on above: Chronic constipation (Primary Dx); RSD (reflex sympathetic dystrophy) Start: 02-08-2025 End: 02-08-2025 ambulatory AYANA RUELAS Not Available Start: 12-07-2024 End: 12-07-2024 Postop follow up visit related to original px Lynda Velasco WILDLIFE BIOLOGY TECHNICIAN Work Phone: [facility] Comment on above: Post-operative state Start: 12-07-2024 End: 12-07-2024 ambulatory LYNDA VELASCO Not Available Start: 12-07-2024 End: 12-07-2024 Bamboo flowsheet Lynda Velasco WILDLIFE BIOLOGY TECHNICIAN Work Phone: [facility] Start: 12-07-2024 End: 12-07-2024 Bamboo flowsheet Lynda Velasco WILDLIFE BIOLOGY TECHNICIAN Work Phone: [facility] Start: 11-25-2024 End: 11-25-2024 Clinisync Result [...] 15 minutes Hermelindo Yoselin DO Work Phone: [facility] Comment on above: Pre-op examination; PCOS (polycystic ovarian syndrome); Pelvic pain in female; Mood disorder (CMS/HCC) Start: 11-01-2024 End: 11-01-2024 Preprocedural examination done Hermelindo Yoselin DO Work Phone: [facility] Start: 11-01-2024 End: 11-01-2024 ambulatory HERMELINDO YOSELIN [...] female Start: 10-11-2024 End: 10-11-2024 ambulatory HERMELINDO WYATT Not Available Start: 09-13-2024 End: 09-13-2024 Office outpatient visit 25 minutes Marcus Villanueva MD Work Phone: [facility] Comment on above: Tension headache (Pr imary Dx); Endometriosis; Other fatigue; Ingrowing nail, left great toe; Primary insomnia Start: 09-13-2024 End: 09-13-2024 ambulatory MARCUS VILLANUEVA Not Available Start: 06-28-2024 End: 06-28-2024 Patient encounter procedure [facility] [place] Work Phone: Start: 06-28-2024 End: 06-28-2024 ambulatory Cammy Allison [facility] Work Phone: Start: 03-23-2024 End: 03-23-2024 ambulatory ERMELINDA GALEANO Not Available Start: 11-22-2022 End: 11-22-2022 ambulatory Marily Vega Other [facility] Other Start: 11-22-2022 Telephone encounter Marily Vega [facility] Start: 11-22-2022 End: 11-22-[address] MARCUS VILLANUEVA Facility: Start: 11-18-2022 End: 11-18-2022 Departed Referred AMRIT Vega Work Phone: [facility] [place] Work Phone: Start: 11-18-2022 End: 11-18-2022 ambulatory AMRIT Vega Work Phone: [facility] Work Phone: Start: 11-18-2022 Office outpatient vi sit 15 minutes Marily Vega [facility] [place] Start: 10-30-2022 End: 10-31-[address] LEIDA ARNDT Facility:[facility] Start: 06-16-2022 End: 06-16-[address] MARCUS VILLANUEVA Facility:[facility] Start: 02-07-2022 End: 02-07-2022 Patient encounter procedure Ermelinda GALEANO [facility] Start: 01-07-2022 End: 01-08-[address] LEIDA ARNDT Facility:[facility] Start: 01-06-2022 End: 01-06-2022 Lab Drop off Ermelinda GALEANO [facility] Start: 12-31-2021 End: 12-31-[address] MARCUS VILLANUEVA Facility:[facility] Start: 09-07-2021 End: 09-07-2021 ambulatory Niharika Valencia Other [facility] Other Start: 09-07-2021 Office outpatient vi sit 15 minutes Niharika Valencia [facility] [place] Procedures Date Procedure Procedure Detail Performing Clinician Start: 11-25-2024 ALL CBC WITH AUTO DIFF Hermelindo Yoselin DO Work Phone: Start: 11-16-2024 US PELVIS W/ TRANSVAGINAL Generic External Data Provider Start: 10-12-2024 ALL CBC WITH AUTO DIFF Hermelindo Yoselin DO Work Phone: Plan of Treatment Date Care Activity Detail Author Start: 04-17-2025 Influenza vaccination Influenz a Vaccine (Season Ended) [facility] Start: 02-08-2025 End: 02-08-2025 Patient encounter procedure 02/08/2025 11:00 AM EDT Office Visit [facility] [address] [place] [id number] Ayana Ruelas, WILDLIFE BIOLOGY TECHNICIAN [address] [place] [address] Arrived [facility] Comment on above: Arrived Start: 12-26-2024 End: 12-26-2024 Patient encounter procedure 12/26/2024 2:20 PM EDT Office Visit [facility] [address] [phone] Hermelindo Wyatt, DO [address] [place], [place] [id number] [facility] Start: 12-07-2024 End: 12-07-2024 Patient encounter procedure 12/07/2024 4:00 PM EDT Office Visit [facility] [address] [place] [phone] Lynda Velasco, WILDLIFE BIOLOGY TECHNICIAN [address] [place] [address] Arrived [facility] Comment on above: Arrived Start: 11-16-2024 End: 11-16-2024 Professional / ancillary services management 11/16/2024 9:00 AM EDT Ancillary Procedure [facility] [address] [phone] [facility] Start: 11-01-2024 End: 11-01-2024 Patient encounter procedure 11/01/2024 11:40 AM EDT Consult [facility] [address] [phone] Hermelindo Wyatt, DO [address] [place], [place] [id number] [facility] Start: 10-11-2024 End: 10-11-2025 DHEA DHEA Lab Routine PCOS (polycystic ovarian syndrome) Expected: 10/11/2024 (Approximate), Expires: 10/11/2025 [facility] Comment on above: Expected: 10/11/2024 (Approximate), Expires: 10/11/2025 Start: 10-11-2024 End: 10-11-2025 US Pelvis US Pelvis w/ TV Imaging Routine PCOS (polycystic ovarian syndrome) Expected: 10/11/2024, Expires: 10/11/2025 [facility] Comment on above: Expected: 10/11/2024 , Expires: 10/11/2025 Start: 10-11-2024 End: 10-11-2024 Patient encounter procedure 10/11/2024 8:50 AM EST Office Visit [facility] [address] [place] [phone] Hermelindo Wyatt, DO [address] [place] [address] [facility] Start: 09-13-2024 End: 09-13-2025 CBC panel - Blood by Automated count CBC Lab Routine Other fatigue Expected: 09/13/2024 (Approximate), Expires: 09/13/2025 [facility] Work Phone: Comment on above: Expected: 09/13/2024 (Approximate), Expires: 09/13/2025 Start: 06-28-2024 [facility] Start: 06-28-2024 Urine culture [facility] Start: 04-17-2024 Influenza vaccination Influenza Vacc ine (#1) [facility] Start: 11-18-2022 [facility] Atopobium vaginae DN A [Presence] in Vaginal fluid by CYNDEE with probe detection [facility] Bacterial vaginosis associated bacterium 2 DNA [Presence] in Vaginal fluid by CYNDEE with probe detection [facility] CBC W Auto Different ial panel - Blood CBC and differential Lab Routine PCOS (polycystic ovarian syndrome) Ordered: 10/11/2024 [facility] Comment on above: Ordered: 10/11/2024 DHEA-sulfate DHEA-sulfate Lab Routine PCOS (polycystic ovarian syndrome) Ordered: 10/11/2024 [facility] Comment on above: Ordered: 10/11/2024 Follicle stimulating hormone Follicle stimulating hormone Lab Routine PCOS (polycystic ovarian syndrome) Ordered: 10/11/2024 [facility] Comment on above: Ordered: 10/11/2024 hCG, quantitative, hCG, quantitative, Lab Routine PCOS (polycystic ovarian syndrome) Ordered: 10/11/2024 [facility] Work Phone: Comment on above: Ordered: 10/11/2024 Hemoglobin A1c/Hemoglobin.total in Blood Hemoglobin A1c Lab Routine Abnormal uterine bleeding (AUB) Ordered: 10/11/2024 [facility] Comment on above: Ordered: 10/11/2024 Luteinizing hormone Luteinizing hormone Lab Routine PCOS (polycystic ovarian syndrome) Ordered: 10/11/2024 [facility] Comment on above: Ordered: 10/11/2024 Megasphaera sp type 1 DNA [Presence] in Vaginal fluid by CYNDEE with probe detection [facility] Thyrotropin [Units/volume] in Serum or Plasma TSH Lab Routine PCOS (polycystic ovarian syndrome) Ordered: 10/11/2024 [facility] Comment on above: Ordered: 10/11/2024 Thyroxine (T4) free [Mass/volume] in Serum or Plasma T4, free Lab Routine PCOS (polycystic ovarian syndrome) Ordered: 10/11/2024 [facility] Comment on above: Ordered: 10/11/2024 [facility] Immunizations Immunization Date Immunization Notes Care Provider Fa cility 04-21-2019 meningococcal B vacc ine, recombinant, OMV, adjuvanted Marcus Villanueva MD Work Phone: [facility] 04-20-2014 tetanus toxoid, redu edward diphtheria toxoid, and acellular pertussis vaccine, adsorbed Marcus Villanueva MD Work Phone: [facility] 02-21-2005 diphtheria, tetanus toxoids and acellular pertussis vaccine, unspecified formulation Marcus Villanueva MD Work Phone: [facility] 02-21-2005 hepatitis B vaccine, pediatric or pediatric/adolescent dosage Marcus Villanueva MD Work Phone: [facility] 02-21-2005 pneumococcal conjuga te vaccine, 7 valent Marcus Villanueva MD Work Phone: [facility] 12-14-2002 diphtheria, tetanus toxoids and acellular pertussis vaccine, unspecified formulation Marcus Villanueva MD Work Phone: [facility] 12-14-2002 measles, mumps and rubella virus vaccine Marcus Villanueva MD Work Phone: [facility] 12-14-2002 pneumococcal conjuga te vaccine, 7 valent Marcus Villanueva MD Work Phone: [facility] 12-14-2002 poliovirus vaccine, inactivated Marcus Villanueva MD Work Phone: [facility] 11-03-2002 diphtheria, tetanus toxoids and acellular pertussis vaccine, unspecified formulation Marcus Villanueva MD Work Phone: [facility] 11-03-2002 haemophilus influenz ae type b conjugate and Hepatitis B vaccine Marcus Villanueva MD Work Phone: [facility] 11-03-2002 poliovirus vaccine, inactivated Marcus Villanueva MD Work Phone: [facility] 2001 diphtheria, tetanus toxoids and acellular pertussis vaccine, unspecified formulation Marcus Villanueva MD Work Phone: [facility] 2001 haemophilus influenz ae type b conjugate and Hepatitis B vaccine Marcus Villanueva MD Work Phone: [facility] 2001 pneumococcal conjuga te vaccine, 7 valent Marcus Villanueva MD Work Phone: [facility] 2001 poliovirus vaccine, inactivated Marcus Villanueva MD Work Phone: [facility] Payers Date Payer Category Payer Self-pay [id number] 2022 Private Health Insurance [facility] MEDICAID [id number] 2001 Unknown [id number] 2001 Unknown [id number]. 593 2001 Unknown [id number]. 593 2001 Unknown [id number]. 593 2001 Unknown [id number] [id number]. 593 2001 Unknown [id number]. 1259 2001 Unknown [id number]. 1259 2001 Unknown [id number]. 1259 2001 Unknown [id number]. 1259 2001 Unknown [id number]. 1259 2001 Unknown [id number]. 1259 1958 Medicaid [id number] 1959 Unknown [id number] Unknown [id number] 531 Social History Date Type Detail Facility Start: 05-22-2020 End: 02-04-2023 Tobacco smoking status Never smoked tobacco (finding) [facility] Other Comment on above: denies Start: 12-08-2023 End: 02-08-2025 Sex Assigned At Female [facility] Other Start: 2001 Sex Assigned At Female F [facility] Tobacco smoking stat us NHIS Unknown if ever smoked [facility] Work Phone: Start: 06-28-2024 End: 06-29-2024 Sex Female (finding) [facility] Start: 02-04-2023 Tobacco use and exposure Smokeless tobacco non-user [facility] Start: 12-08-2023 End: 02-08-2025 Alcoholic beverage intake Lifetime non-drinker (finding) [facility] Start: 12-08-2023 End: 02-08-2025 History of Social function [facility] Start: 02-04-2023 Alcohol Comment caffeine 1-2 cups/da y [facility] Start: 2001 Sex assigned at Not on file N [facility] Functional Status Date Assessment Result Facility 02-08-2025 Patient Health Quest ionnaire 2 item (PHQ-2) [Reported] [facility] Clinical Notes 09-07-2021 to 02-08-2025 Ayana Ruelas NP - 02/08/2025 11:00 AM Adonay Velasco NP - 12/07/2024 4:00 PM Adriana Mabry - 11/01/2024 11:40 AM Deanna Keene LPN - 10/11/2024 8:50 AM EST Note Date & Type Note Facility 02-08-2025 History of Presen t illness Narrative Images from the original note were not included. Subjective Patient ID: Mati Holt is a 24 y.o. female who presents for No chief complaint on file.. Mati presents today for a referral for GI, due to bowel problems. Constipation This is a chronic problem. The current episode started more than 1 year ago. The problem has been gradually worsening since onset. Her stool frequency is 1 time per week or less. The stool is described as pellet like (sticky bowel movements). The patient is not on a high fiber diet. She Does not exercise regularly. There has Been adequate water intake (drinking poweraid). Associated symptoms include flatus. Treatments tried: Enema, Miralax. The treatment provided no relief. Over the past 2 weeks, how often have you been bothered by any of the following problems? Little interest or pleasure in doing things: Not at all Feeling down, depressed, or hopeless: Not at all Patient Health Questionnaire-2 Score: 0 Current Outpatient Medications on File Prior to Visit Medication Sig Dispense Refill citalopram (CeleXA) 10 MG tablet Take 1 tablet (10 mg) by mouth Daily 30 tablet 11 No current facility-administered medications on file prior [...] Medical History: Diagnosis Date Concussion 2018 Depression Ectopic (HHS-HCC) ectopic with spontaneous miscarriage Endometriosis History of being hospitalized 12/2017 depression/suicide attempt History of CT scan 05/22/2020 CT scan of brain normal History of CT scan 09/15/2020 CT scan of abdomen and pelvis shows Right Pelvis 3.9 cyst suspected to be ovarian in origin Seizures (HCC) 2001 Past Surgical History: Procedure Laterality Date BONE AGE STUDY 2011 CHLAMYDIA 01/2022 LAPAROSCOPY DIAGNOSTIC / BIOPSY / ASPIRATION / LYSIS 11/25/2024 dx lap OVARIAN CYST REMOVAL 12/2020 Dr. Vieira Visit Vitals OB Status Unknown Smoking Status Never Review of Systems Gastrointestinal: Positive for constipation and flatus. Objective Physical Exam Vitals reviewed. Constitutional: Appearance: Normal appearance. HENT: Head: Normocephalic. Nose: Nose normal. Mouth/Throat: Mouth: Mucous membranes are moist. Pharynx: Oropharynx is clear. Eyes: Conjunctiva/sclera: Conjunctivae normal. Cardiovascular: Rate and Rhythm: Normal rate. Pulmonary: Effort: Pulmonary effort is normal. Skin: General: Skin is warm and dry. Neurological: General: No focal deficit present. Mental Status: She is alert and oriented to person, place, and time. Psychiatric: Mood and Affect: Mood normal. Behavior: Behavior normal. Thought Content: Thought content normal. Judgment: Judgment normal. Assessment/Plan Diagnoses and all orders for this visit: Chronic constipation - Ambulatory referral to Gastroenterology; Future Continue with Miralax daily. Drink plenty of fluids. Await referral. EXECUTIVE COACH wanted pt to see GI due to chronic constipation RSD (reflex sympathetic dystrophy) - Ambulatory referral to Neurology; Future Await referral. No follow-ups on file. documented in this encounter [facility] 12-07-2024 History of Presen t illness Narrative [...] Date Noted Adjustment disorder with depressed mood ([facility]) 01/05/2018 Anxiety 02/13/2020 Other fatigue 03/02/2023 Atrophic gastritis 01/05/2018 Chronic gastritis without bleeding 03/02/2023 Constipation 03/02/2023 Daily headache 03/02/2023 Depression ([facility]) 12/19/2017 Difficulty sleeping 03/02/2023 Dorsalgia, unspecified 03/02/2023 Encounter for contraceptive management, unspecified 03/02/2023 Endometriosis 03/05/2021 Generalized anxiety disorder ([facility]) 02/27/2020 History of concussion 03/02/2023 History of mononucleosis 03/02/2023 Impaired fasting glucose 03/02/2023 Major depressive disorder, single episode, unspecified ([facility]) 03/02/2023 Neck muscle spasm 03/02/2023 Other chronic pain 03/02/2023 Protein calorie malnutrition ([facility]) 03/02/2023 Sore throat, chronic 03/02/2023 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 Tylenol overdose, intentional self-harm, initial encounter ([facility]) 12/18/2017 Tylenol overdose 12/18/2017 Underweight 03/02/2023 Urinary frequency 03/02/2023 Tinea capitis 03/03/2023 Tension headache 05/11/2023 Ingrowing nail, left great toe 09/13/2024 Primary insomnia 09/13/2024 Post-operative state 12/07/2024 Resolved Ambulatory Problems Diagnosis Date Noted No Resolved Ambulatory Problems Past Medical History: Diagnosis Date Concussion 2019 Ectopic History of being hospitalized 12/[address] scan 05/22/[address] scan 09/15/2020 Seizures ([facility]) 2002 HISTORY PAST MEDICAL HISTORY SOCIAL HISTORY [...] nursing note reviewed. Exam conducted with a senior clerk present. Vitals: Estimated body mass index is [...] Lynda Velasco NP documented in this encounter [facility] 11-01-2024 History of Presen t illness Narrative Reason for Appointment: Patient ID: Mati Holt is a 24 y.o. female who presents for Pre-op Visit Patient presents today for Pre Op appointment. Patient is scheduled to undergo Diagnostic Laparoscopy, possible ELEANOR, possible FOE, possible BSO on 11/25/[address] Wyatt at [facility]. MEDICATIONS Current Outpatient Medications Medication Instructions ALPRAZolam (XANAX) 0.25 mg, Oral, Every 12 hours baclofen (Lioresal) 10 MG tablet TAKE 1 TABLET BY MOUTH IN THE MORNING, EVENING, AND BEFORE BEDTIME desogestrel-ethinyl estradiol (Apri) 0.15-30 MG-MCG tablet 1 tablet, Oral, Daily ALLERGIES No Known Allergies PROBLEMS Active Ambulatory Problems Diagnosis Date Noted Adjustment disorder with depressed mood ([facility]) 01/05/2018 Anxiety 02/13/2020 Other fatigue 03/02/2023 Atrophic gastritis 01/05/2018 Chronic gastritis without bleeding 03/02/2023 Constipation 03/02/2023 Daily headache 03/02/2023 Depression ([facility]) 12/19/2017 Difficulty sleeping 03/02/2023 Dorsalgia, unspecified 03/02/2023 Encounter for contraceptive management, unspecified 03/02/2023 Endometriosis 03/05/2021 Generalized anxiety disorder ([facility]) 02/27/2020 History of concussion 03/02/2023 History of mononucleosis 03/02/2023 Impaired fasting glucose 03/02/2023 Major depressive disorder, single episode, unspecified ([facility]) 03/02/2023 Neck muscle spasm 03/02/2023 Other chronic pain 03/02/2023 Protein calorie malnutrition ([facility]) 03/02/2023 Sore throat, chronic 03/02/2023 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 Tylenol overdose, intentional self-harm, initial encounter ([facility]) 12/18/2017 Tylenol overdose 12/18/2017 Underweight 03/02/2023 Urinary frequency 03/02/2023 Tinea capitis 03/03/2023 Tension headache 05/11/2023 Ingrowing nail, left great toe 09/13/2024 Primary insomnia 09/13/2024 Resolved Ambulatory Problems Diagnosis Date Noted No Resolved Ambulatory Problems Past Medical History: Diagnosis Date Concussion 2019 Ectopic History of being hospitalized 12/[address] scan 05/22/[address] scan 09/15/2020 Seizures ([facility]) 2001 HISTORY PAST MEDICAL HISTORY SOCIAL HISTORY Past Medical History: Diagnosis Date Concussion 2019 Depression ([facility]) Ectopic ectopic with spontaneous miscarriage Endometriosis History of being hospitalized 12/2017 depression/suicide attempt History of CT scan 05/22/2020 CT scan of brain normal History of CT scan 09/15/2020 CT scan of abdomen and pelvis shows Right Pelvis 3.9 cyst suspected to be ovarian in origin Seizures ([facility]) 2001 Social History Tobacco Use Smoking [...] nursing note reviewed. Exam conducted with a senior clerk present. Vitals: Estimated body mass index is [...] reviewed, and patient is to proceed to [facility]. Pt states having mood changes- denies suicidal and homicidal ideations- rx for celexa faxed to pharmacy. Pt to return in 8 weeks for follow up on celexa Follow Up: Patient is to follow up between 1-2 weeks post operative to assess proper healing and recovery from procedure. Documented by Leida Keene LPN on behalf of: Hermelindo Wyatt DO documented in this encounter [facility] 10-11-2024 History of Presen t illness Narrative [...] Date Noted Adjustment disorder with depressed mood ([facility]) 01/05/2018 Anxiety 02/13/2020 Other fatigue 03/02/2023 Atrophic gastritis 01/05/2018 Chronic gastritis without bleeding 03/02/2023 Constipation 03/02/2023 Daily headache 03/02/2023 Depression ([facility]) 12/19/2017 Difficulty sleeping 03/02/2023 Dorsalgia, unspecified 03/02/2023 Encounter for contraceptive management, unspecified 03/02/2023 Endometriosis 03/05/2021 Generalized anxiety disorder ([facility]) 02/27/2020 History of concussion 03/02/2023 History of mononucleosis 03/02/2023 Impaired fasting glucose 03/02/2023 Major depressive disorder, single episode, unspecified ([facility]) 03/02/2023 Neck muscle spasm 03/02/2023 Other chronic pain 03/02/2023 Protein calorie malnutrition ([facility]) 03/02/2023 Sore throat, chronic 03/02/2023 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 Tylenol overdose, intentional self-harm, initial encounter ([facility]) 12/18/2017 Tylenol overdose 12/18/2017 Underweight 03/02/2023 Urinary frequency 03/02/2023 Tinea capitis 03/03/2023 Tension headache 05/11/2023 Ingrowing nail, left great toe 09/13/2024 Primary insomnia 09/13/2024 Resolved Ambulatory Problems Diagnosis Date Noted No Resolved Ambulatory Problems Past Medical History: Diagnosis Date Concussion 2019 Ectopic History of being hospitalized 12/[address] scan 05/22/[address] scan 09/15/2020 Seizures ([facility]) 2002 HISTORY PAST MEDICAL HISTORY SOCIAL HISTORY Past Medical History: Diagnosis Date Concussion 2019 Depression ([facility]) Ectopic ectopic with spontaneous miscarriage Endometriosis [...] nursing note reviewed. Exam conducted with a senior clerk present. Vitals: Estimated body mass index is [...] Hermelindo Wyatt DO documented in this encounter [facility] 09-13-2024 History of Presen t illness Narrative [...] follow-ups on file. documented in this encounter [facility] 11-18-2022 Evaluation note Encounter Date Diagnosis Assessment [...] and if positive, will follow up with [facility], as she states the last time she was positive she was treated with IV infusion. Advised patient that specimen was sent to lab and patient will be notified of results. Tx plan may be altered at time of results. Stressed importance of not drinking alcohol while taking Flagyl as it will cause reaction. Take as directed. Patient to follow with PCP or [facility] as needed for persistent or worsening symptoms. Immediate eval if abdominal pain, fever, chills, body aches, back/flank pain, nausea, urinary complaints. Avoid douching and sexual activity at this time. Patient verbalizes understanding and is agreeable to treatment plan. Nov, Dysuria (ICD-10 - R30.0) [facility] Other 05-23-2022 Evaluation + Plan note Diagnostic Tests Pending * NuSwab Vaginitis Plus (VG+) 01/06/22 [facility]01-[facility] Evaluation note* Encounter Date Diagnosis [...] 2 to 3 days. Always use condoms [facility] [place] Other Evaluation noteNo assessment information available [facility] Work Phone: Evaluation noteNo InformationNortButler [facility] Hospital [place] Other Evaluation note* Diagnosis Tension headache- Primary [...] postprocedural status [facility] Diagnosis Tension headache- Primary Anxiety Anxiety state, unspecified Tension headache- Primary Anxiety Anxiety state, unspecified Tension headache- Primary Endometriosis Endometriosis, site unspecified Other fatigue Ingrowing nail, left great toe Ingrowing nail Primary insomnia Persistent disorder of initiating or maintaining sleep Chronic constipation- Primary Unspecified constipation RSD (reflex sympathetic dystrophy) Unspecified reflex sympathetic dystrophy [facility] Author Joy Wooten [facility] Authored April 06, 2025 10 :32am 25-year-old female referred to the GI clinic for evaluation of chronic constipation + Chronic constipation not responsive to MiraLAX once a day Will check TSH CRP and fecal calprotectin. Will arrange for colonoscopy. Patient was recommended to avoid dehydration, maintain regular activity/exercise, take Miralax 17gm PO Qday and titrate up to twice or three times daily if needed. [facility] Work Phone: History general Narrative - Reported* Type Description Date Medical History anxiety Medical History chronic depression Medical History endometriosis Surgical History cyst removal Hospitalization History see above [facility] Other Hospital course Narrative No data available for this section [facility] No data available for this section [facility] No data available for this section [facility]Reason for referral (narrative)No reason for referral information availableMarymount Hospital Work Phone: Summary Purpose Family History Relationship Condition Age at Onset Recorded Date/T alexi brother Unknown Advance Directives Advance Directive Response Recorded Date/ Time Advance Directives No October 29 10:33am Advance Directive Response Recorded Date/ Time Advance Directives No October 29 9:33am Chief Complaint and Reason for Visit Chief Complaint Admit Date possible uti, Frequency, burning Novembe r 2023 1:49pm Reason for Visit Admit Date Constipation April 06, 2025 10 :04am Additional Source Comments Care Team (unrecognized sect [...] June 28, 2024 End: June 28, 2024 Hospitality Associate Relationship Specialty Start Date End Date Marcus Villanueva MD [address] [place] [address] PCP - [facility] 01/29/23 Marcus Villanueva MD [address] [place] [address] PCP [facility] 11/15/22 Hospitality Associate Relationship Specialty Start Date End Date Marcus Villanueva MD [address] [place] [address] PCP - [facility] 01/29/23 Marcus Villanueva MD [address] [place] [address] PCP [facility] 11/15/22 Hospitality Associate Relationship Specialty Start Date End Date Marcus Villanueva MD [address] [place] [address] PCP - [facility] 01/29/23 Marcus Villanueva MD [address] [place] [address] PCP [facility] 11/15/22 Hospitality Associate Relationship Specialty Start Date End Date Marcus Villanueva MD [address] [place] [address] PCP - [facility] 01/29/23 Marcus Villanueva MD [address] [facility] [address] [place] [address] PCP [facility] 11/15/22 Hospitality Associate Relationship Specialty Start Date End Date Marcus Villanueva MD [address] [place] [address] [facility] 01/29/23 Marcus Villanueva MD [address] [place] [address] PCP [facility] 11/15/22 Hospitality Associate Relationship Specialty Start Date End Date Marcus Villanueva MD [address] [place] [address] [facility] 01/29/23 Marcus Villanueva MD [address] [facility] [address] [place] [address] [facility] 11/15/22 Hospitality Associate Relationship Specialty Start Date End Date Marcus Villanueva MD [address] [place] [address] [facility] 01/29/23 Marcus Villanueva MD [address] [facility] [address] [place] [address] PCP [facility] 11/15/22 Hospitality Associate Relationship Specialty Start Date End Date Marcus Villanueva MD [address] [place] [address] [facility] 01/29/23 Marcus Villanueva MD [address] [place] [address] [facility] 11/15/22 Hospitality Associate Relationship Specialty Start Date End Date Marcus Villanueva MD [address] [place] [address] PCP - General Family Medicine 01/29/23 Mracus Villanueva MD [address] [facility] [address] [place] [address] PCP - [facility] 11/15/22 Team Status: Active Member Role Status Dates NON STAFF Primary Care Provider Active Team Status: Inactive Member Role Status Dates Joy Wooten MD Attending Provider Active Start: April 06, 2025 End: April 06, 2025 NON STAFF Primary Care Provider Active Start: April 06, 2025 End: April 06, 2025 INFORMATION SOURCE (unrecogn ized section and content) DATE CREATED AUTHOR 02/10/2022 [facility] DATE CREATED AUTHOR AUTHOR'S ORGANIZ ATION 11/24/2022 [facility] DATE CREATED AUTHOR AUTHOR'S ORGANIZ ATION 07/04/2024 [facility] DATE CREATED AUTHOR AUTHOR'S ORGANIZ ATION 02/09/[address] [facility] EPIC REASON FOR VISIT [...] BE BASED ON THE PRIMARY CLINICAL RECORDS. [facility] [employer] [facility]. provides no warranty or guarantee of the accuracy or completeness of information in this document.
[2025-04-07 16:24] LABS: TSH W/ REFLEX FT4 4.198 uIU/mL (0.358-3.740)
== END 2025-04-07 14:36 | disposition home or self-care (01) ==
PROVIDERS: PCP Family Medicine; Visit Provider Internal Medicine
DX: K59.00 Constipation, unspecified (principal)
CPT/HCPCS: 36415; 84439; 84443; 86140